=== PATIENT | male | born 1955 | race Caucasian/White ===

== ENCOUNTER → 2017-12-24 09:34 | Outpatient (CLI) | payer OTHER, SELFPAY ==
--- NOTE | 2017-12-24 09:45 | RAD_ITS ---
STUDY: X-RAY - PELVIS REASON FOR EXAM: Male, 62 years old. History of inflammatory polyarthropathy. TECHNIQUE: One view of the pelvis was obtained. COMPARISON: None. FINDINGS: There is a non-specific bowel gas pattern. Normal visualized soft tissue structures. Normal bilateral iliac wings, sacroiliac joints and visualized sacrum. Normal visualized bilateral superior and inferior pubic rami. Normal pubic symphysis. Normal ischial tuberosities. The patient is status post right total hip replacement. There is deformity of the right acetabulum with cephalic migration of the prosthesis and right hip. Normal visualized left femoral head. Normal left acetabulum. Normal left hip joint. RAD/Pelvis 1 or 2 Views IMPRESSION: Status post right total hip replacement with deformity of the right acetabulum. Electronically Signed: Silvio Galvan MD at 15:53 EST Tel [phone], Service support ,
[2017-12-24 12:45] LABS: Absolute Lymphocyte Count 1.65 X10^3/ul (0.83-4.51); Absolute Neutrophil Count 6.6 X10^3/uL (2.0-7.7); Basophil# 0.04 X10^3/uL; Basophil% 0.4 % (0-1); Eosinophil# 0.14 X10^3/uL; Eosinophils% 1.5 % (0-5); Hemoglobin 15.4 g/dl (13.0-16.5); Lymphocyte # 1.65 X10^3/ul (4.0); Mean Corp Hgb Conc 33.5 g/gl (32-36); Mean Corpuscular Hgb 28.9 pg (27.0-32.0); Mean Corpuscular Volume 86.5 fL (80-94); Mean Platelet Vol. 8.6 fl (6.2-12.0); Monocyte# 0.75 X10^3/uL; Monocyte% 8.2 % (0-10); Neutrophil # 6.59 X10^3/uL (2.7-7.7); Neutrophil % 71.8 % (47-70); Platelet Count 533 K/mm3 (150-450); RBC Distribution Width CV 14.3 % (11.6-14.6); RBC Distribution Width SD 45.2 fl (35.1-43.9); Red Blood Count 5.32 M/mm3 (4.6-6.2); White Blood Count 9.2 K/mm3 (4.4-11.0)
[2017-12-24 12:57] LABS: POSITIVE COUNT NO; POSITIVE DIFFERENTIAL NO; POSITIVE MORPHOLOGY NO
[2017-12-24 13:00] LABS: ALB/GLOB Ratio 1.2 RATIO (0.9-2.4); AST(SGOT) 24 U/L (15-37); Alanine Aminotransfer ALT/SGPT 40 U/L (16-61); Albumin, Serum 4.5 g/dL (3.2-5.0); Alkaline Phosphatase 76 U/L (45-117); Anion Gap 10 (5-15); BUN 14 mg/dL (7-18); BUN/Creat Ratio 17.4 RATIO (10-20); CRP < 2.90 mg/L (0.0-3.0); Calcium,Total 9.5 mg/dL (8.5-10.1); Chloride 102 mmol/L (98-107); EST Glomerular Filtration Rate 104 mL/min (>60); Est Glom Filt Rate - Afr Amer 125 mL/min (>60); Globulin 3.6 g/dL (2.2-4.2); Glucose 92 mg/dL (74-106); Potassium 3.9 mmol/L (3.5-5.1); Protein, Total 8.1 g/dL (6.4-8.2); Rheumatoid Factor < 10.0 IU/mL (<15); Sodium Level 137 mmol/L (136-145)
[2017-12-24 13:03] LABS: Erythrocyte Sedimentation Rate 7 mm/hr (0-20)
[2017-12-26 09:40] LABS: ANTINUCLEAR ANTIBODIES DIRECT Negative (Negative)
[2017-12-31 15:17] LABS: CCP IgG Antibodies 3 units (0-19); HEPATITIS B SURFACE AG Negative (Negative); HLA B27 Negative (.); Hep B Surface Antibodies Non Reactive (.); Hep C Antibodies <0.1 s/co ratio (0.0-0.9)
== END ==
PROVIDERS: Family Provider Internal Medicine; PCP Internal Medicine; Visit Provider Internal Medicine Rheumatology
DX: M06.4 Inflammatory polyarthropathy (principal); I10 Essential (primary) hypertension; F41.9 Anxiety disorder, unspecified
CPT/HCPCS: 36415; 72170; 80053; 81374; 85025; 85652; 86038; 86140; 86200; 86431; 86706; 86803; 87340

== ENCOUNTER → 2018-01-27 08:59 | Outpatient (CLI) | payer OTHER, SELFPAY ==
[2018-01-27 09:12] LABS: Absolute Lymphocyte Count 3.31 X10^3/ul (0.83-4.51); Absolute Neutrophil Count 8.2 X10^3/uL (2.0-7.7); Basophil# 0.04 X10^3/uL; Basophil% 0.3 % (0-1); Eosinophil# 0.26 X10^3/uL; Hematocrit 42.8 % (40-54); Hemoglobin 13.8 g/dl (13.0-16.5); Lymphocyte # 3.31 X10^3/ul (4.0); Lymphocyte % 25.6 % (19-41); Mean Corp Hgb Conc 32.2 g/gl (32-36); Mean Corpuscular Hgb 28.9 pg (27.0-32.0); Mean Corpuscular Volume 89.5 fL (80-94); Monocyte% 8.5 % (0-10); Neutrophil % 63.3 % (47-70); Platelet Count 474 K/mm3 (150-450); RBC Distribution Width CV 13.9 % (11.6-14.6); RBC Distribution Width SD 44.7 fl (35.1-43.9); Red Blood Count 4.78 M/mm3 (4.6-6.2)
[2018-01-27 09:15] LABS: POSITIVE COUNT NO; POSITIVE DIFFERENTIAL NO; POSITIVE MORPHOLOGY NO
[2018-01-27 09:24] LABS: Erythrocyte Sedimentation Rate 1 mm/hr (0-20)
[2018-01-27 09:43] LABS: CRP < 2.90 mg/L (0.0-3.0)
== END ==
PROVIDERS: Family Provider Internal Medicine; PCP Internal Medicine; Visit Provider Specialist
DX: T84.84XA Pain due to internal orthopedic prosthetic devices, implants and grafts, initial encounter (principal)
CPT/HCPCS: 36415; 85025; 85652; 86140

== ENCOUNTER → 2018-01-30 09:10 | Outpatient (CLI) | payer OTHER, SELFPAY ==
--- NOTE | 2018-01-30 09:12 | NM_ITS ---
CLINICAL: 62-year-old male with reported history of painful right hip arthroplasty operated > 20 years previous. LIMITED 99m Tc MDP THREE PHASE BONE SCINTIGRAPHY COMPARISON: Plain film radiograph report pelvis 12/24/2017 FINDINGS: Following the intravenous administration of 27.0 mCi of 99m Tc MDP, three-phase bone acquisitions of the pelvis reveal: 1. The flow and immediate static blood pool acquisitions demonstrate normal arterial and venous phase distribution of the radiopharmaceutical to the bilateral hemipelvis. 2. Delayed images depict increased radiopharmaceutical concentration identified in the anterior superior acetabular, intertrochanteric and distal femoral components of the symptomatic right hip prosthesis. 3. An increase in tracer concentration is identified in the fourth lumbar vertebra posteriorly on the left, right posterior sacrum, the left hip involving the femoral head-acetabular interface. 4. The remaining limited skeletal structures are scintigraphically unremarkable. NM/Bone Scan Three Phase IMPRESSION: 1. The increase in radiopharmaceutical concentration identified in the acetabular, intertrochanteric and femoral components of the painful right hip arthroplasty is consistent with a high likelihood of loosening in the setting of operative intervention > 2 years prior to the current presentation. If an infectious etiology is a diagnostic consideration, correlation with labeled leukocyte imaging is recommended. 2. Degenerative arthritis is otherwise defined in the fourth lumbar vertebra, sacrum and left hip articulation. Electronically Signed: Grant Escalante DO at 10:07 EDT Tel , Service support ,
== END ==
PROVIDERS: Family Provider Internal Medicine; PCP Internal Medicine; Visit Provider Specialist
DX: T84.84XA Pain due to internal orthopedic prosthetic devices, implants and grafts, initial encounter (principal)
CPT/HCPCS: 78315

== ENCOUNTER 2018-02-26 07:31 | Inpatient (IN) | payer OTHER, SELFPAY ==
[2018-02-17 10:07] VITALS: BP 133/91; PULSE 77; RESP 16; TEMP 37.2; O2SAT 96; BMI 21.9
--- NOTE | 2018-02-17 10:13 | EKG12_ITS ---
Test Reason : Blood Pressure : / mmHG Vent. Rate : 074 BPM Atrial Rate : 074 BPM P-R Int : 150 ms QRS Dur : 146 ms QT Int : 412 ms P-R-T Axes : 070 076 042 degrees QTc Int : 457 ms Normal sinus rhythm Right bundle branch block Abnormal ECG Confirmed by HENRIK BERNARD, JOURDAN ([id number]), sports editor ERUM RODRIGUEZ ([id number]) on 02/18/2018 3:38:26 PM Referred By: ORLANDO Confirmed By:JOURDAN CHESTER MD
[2018-02-17 11:14] LABS: Anion Gap 5 (5-15); BUN 13 mg/dL (7-18); BUN/Creat Ratio 15.6 RATIO (10-20); Calcium,Total 8.4 mg/dL (8.5-10.1); Chloride 102 mmol/L (98-107); Creatinine, Serum 0.83 mg/dL (0.70-1.30); EST Glomerular Filtration Rate 100 mL/min (>60); Est Glom Filt Rate - Afr Amer 121 mL/min (>60); Estimated Creatinine Clearance 86.59 ml/min; Glucose 115 mg/dL (74-106); Potassium 3.7 mmol/L (3.5-5.1); Sodium Level 135 mmol/L (136-145)
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
--- NOTE | 2018-02-21 15:52 | CASEMGMT ---
RN CM called and spoke with patient regarding discharge needs after upcoming surgery. Patient states that he has a walker, cane, toilet riser, and denies need for further DME. Patient states that he will need setup with outpatient therapy prior to discharge. RN GIOVANNY will follow up with patient after surgery and will assist with discharge needs.
[2018-02-26] VITALS (12 sets, daily range): BP systolic 133–158; BP diastolic 78–103; PULSE 74–98; RESP 14–18; TEMP 36.6–37.3; O2SAT 96–100; BMI 21.9
[2018-02-26] MEDS: oxyCODONE HCl Cr 10 MG Tablet PO (08:12)
[2018-02-26] MEDS: Celecoxib 200 MG Capsule 400 MG PO (08:12)
[2018-02-26] MEDS: Acetaminophen 500 MG Tablet 1000 MG PO ×2 (08:12→21:05)
[2018-02-26] MEDS: Lactated Ringers 1,000 ML 999 ML IV (08:30)
[2018-02-26] MEDS: Cefazolin 2 GM in 0.9% Normal Saline 100 ML IV (09:58)
--- NOTE | 2018-02-26 10:04 | RAD_ITS ---
STUDY: X-RAY - PELVIS AND RIGHT HIP REASON FOR EXAM: Male, 62 years old. Postop. TECHNIQUE: Radiological exam, hip, unilateral, with pelvis when performed; 2 or 3 views. COMPARISON: Pelvis, December 24, 2017 FINDINGS: There is a non-specific bowel gas pattern. Normal visualized soft tissue structures. Normal visualized pelvis. There is a right total hip arthroplasty. There is metallic plate along the lateral aspect of the greater trochanter with multiple transfixing metal wires. The greater trochanteric fracture seen on the previous study is not clearly identified. There is seen about the hip joint. In the musculature. RAD/Hip Min 2 Views (Portable) IMPRESSION: Interval revision of a right total hip arthroplasty. Electronically Signed: Tyrel Stubbs DO at 16:11 EDT Tel [phone], Service support ,
[2018-02-26 14:52] LABS: Hematocrit 35.1 % (40-54); Hemoglobin 11.8 g/dl (13.0-16.5); Mean Corp Hgb Conc 33.6 g/gl (32-36); Mean Corpuscular Hgb 29.8 pg (27.0-32.0); Mean Corpuscular Volume 88.6 fL (80-94); Platelet Count 290 K/mm3 (150-450); RBC Distribution Width CV 14.3 % (11.6-14.6); RBC Distribution Width SD 46.4 fl (35.1-43.9); Red Blood Count 3.96 M/mm3 (4.6-6.2); Scan Indicated on CBC? Y/N NO; White Blood Count 29.6 K/mm3 (4.4-11.0)
[2018-02-26 15:10] LABS: Anion Gap 6 (5-15); BUN 11 mg/dL (7-18); BUN/Creat Ratio 15.2 RATIO (10-20); Calcium,Total 7.7 mg/dL (8.5-10.1); Chloride 102 mmol/L (98-107); Creatinine, Serum 0.73 mg/dL (0.70-1.30); EST Glomerular Filtration Rate 117 mL/min (>60); Est Glom Filt Rate - Afr Amer 141 mL/min (>60); Estimated Creatinine Clearance 98.45 ml/min; Glucose 194 mg/dL (74-106); Potassium 4.1 mmol/L (3.5-5.1); Sodium Level 136 mmol/L (136-145)
--- NOTE | 2018-02-26 16:25 | RAD_ITS ---
STUDY: X-RAY - RIGHT FEMUR REASON FOR STUDY: Male, 62 years old. Postop TECHNIQUE: Radiological exam, femur, minimum 2 views COMPARISON: None. FINDINGS: Hip prosthesis in place without loosening. Intact cerclage wires. Postsurgical changes surrounding soft tissues. RAD/Femur Min 2 Views IMPRESSION: Hip prosthesis in place without loosening. No fracture. Electronically Signed: Eric Watkins DO at 18:37 EDT , Service support ,
--- NOTE | 2018-02-26 16:32 | PCM.OPRPT ---
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 Patient did have a old greater trochanteric fracture which was propagated during the procedure and fixed. Hip was stable with equal leg length at completion of procedure dental equipment repairer: Shay Merrill dental equipment repairer: Froilan Peña Type of Anesthesia:: General, Spinal Anesthesiologist: Freddy James Special Medications: 2 g Ancef, 1 g TXA at incision, 1 g TXA closure, 10 mg Decadron, joint cocktail (5 mg Duramorph, 30 mL of 0.5% Ropivicaine, 1000 units of epinephrine, 30 mg of Toradol), 2 additional grams of Ancef were given 3 hours after the incision, grams of vancomycin were placed in the wound prior to closure. Specimen's removed: 3 separate specimens were sent to microbiology Estimated Blood Loss (mL): 1500 mL Fluids Replaced: 2500 mL crystalloid, 750 mL Cell Saver Description of Procedure: 62-year-old male who presented to my office with total hip replacement done in 1987. He had extensive ostial lysis and polyethylene wear. Bone scan showed loosening of both components. X-rays show polyethylene wear and extensive ostial lysis with nondisplaced greater trochanteric fracture. After discussion of risk and benefits including but not limited to blood loss, DVTs, PEs, nervous damage, infection, general risk of anesthesia and prolonged surgery as well as use of allograft and possible osteotomies patient demonstrated understanding was able to sign informed consent. He does understand with his revision these complications, and a higher rate and recovery can be prolonged. Components used: 1. [place] congregation modular millimeter by 195 mm femoral stem conical, 23 mm +0 modular body 2. [place] BAILEY 70 mm acetabular component with multiple screws 3. Chhaya MDM liner alpha code G 4. Chhaya Biolox delta femoral head 28 mm, +4 mm. [place] MDM X3 polyethylene liner alpha code G 5. [place] peritrochanteric hip cable plate 100 mm and cables. Procedure: On the date of procedure the patient's R hip was marked in the preoperative area. Patient was then taken back to the operating room where anesthesia assumed control of the C-spine and airway and administered anesthetic. Patient was transferred to the operating table and placed in the lateral decubitus position with the affected hip up. The patient was secured in the bed with the lateral positioners and leg lengths were checked. The R lower extremity was then prepped out in a sterile fashion using chlorhexidine while the surgeon scrubbed. Upon reentering the room the [] lower extremity was draped in the standard orthopedic fashion and the incision was marked. A timeout was called and everyone agreed upon the side, the site, the procedure be performed, antibiotics given, and patient's identity. At this time incision was made through skin, using the old incision down through subcutaneous tissue, and fat down to fascia. The fascia was then incised and a Charley retractor was placed. The soft tissue was then cleared from the posterior external rotators were taken down off the posterior lateral edge of the greater trochanter until the prosthesis could be identified. Once the prosthesis could be identified synovectomy was performed in situ. Aggressive synovectomy was performed and synovium was sent for culture. Once a synovectomy was performed this allowed dislocation of the old hip. During dislocation the previous greater trochanteric fracture was propagated creating a trochanteric osteotomy. At this time it was noted that there was significant osteolytic debris in the greater trochanter leaving a shell of bone. This was debrided. This gave us access to the proximal portion of the femoral component. Her and osteotomes were used to bur around the proximal portion. Despite this we were unable to the femoral component. At this time the leg was positioned in the incision was extended so that we could perform an extended trochanteric osteotomy. Bur holes were made at the corners of the osteotomy and a saw was used to perform the osteotomy. Once the saw cut was completed brought osteotomes were placed across the osteotomy and the osteotomy was completed. Once this was done we again brought her on the distal portion of the implant until can be completely removed. Once the implant was completely removed we drilled to the pedestal distally and used flexible reamers to open the distal canal. Final reaming was to 15 mm. Attention was then turned to the acetabulum were accessed synovium and debris were debrided and the rim of the acetabulum could be identified. Polyethylene component was removed and the screws were removed. Once this was done we could see that there was a 56 mm cup. The 56 mm cup Tomes extractors were then loaded up and the acetabular implant was extracted after placing methylene back into the acetabular component. Once the acetabular component was extracted we could see large bone void superiorly. There was also bone voids and bone loss posteriorly. Should be noted that cultures were sent from the acetabular membrane in the femoral membrane after extraction of the implants. At this time the acetabular rim was reamed up to a 68 and we trialed a 70 mm acetabular component. This gave us of rim fit. Due to the size of the component previous elevation of the center rotation we elected use an BAILEY cup from [employer]. Once the acetabular bone was appropriately prepped and reamed 6 L of normal saline were irrigated throughout the wound under low-pressure lavage. While we are doing this on the back table allograft and DBX bone cement were mixed into a slurry for grafting the bone defects from ostial lysis that had been previously debrided. Once a 6 L of normal saline were complete wound was dried up and the graft was placed. We then used a reamer on reverse to impact the graft bone. Once this was done 70 mm BAILEY cup was loaded and impacted into place. Once we had a good solid fit screws were used to improve fixation. MDM liner was then opened and impacted into place. The position of the cup was checked with our [facility] acetabular version guide. It was found to be satisfactory. Attention was then directed to the femur. With our attention back on the femur the osteotomy was reduced and a prophylactic cable wire was placed distally and 2 K wires are placed on the osteotomy. Femur was sequentially reamed using the baton reamers to 16 mm stem x 195 mm stem. When this was done we used the ball-tipped guidewire to sound canal and no breaches were noted. At this time the final implant was opened and impacted into place. We then reamed to a 23 mm for the proximal body and trial. We trialed with a -4 mm trial neck did not have adequate leg length congregation. With a +4 trial neck we did obtain good leg lengths minimal shuck instability with flexion at 90? and 45? internal rotation. Once they are happy with these trial components hip was dislocated and trial components were removed and final components were opened and impacted into place. Femoral head was assembled on the [facility] record changer assembler and impacted into place. Hip was then reduced. The cable wires on the osteotomy were then tightened further and crimped. We then used #5 FiberWire to help reduce and secure the greater trochanteric fragment. We then used a cable late for final security. 2 cables were passed through the cable plate. Once this was done the hip remained stable. The periarticular injection was given and 2 g of vancomycin powder were placed in the wound. The wound was then copiously irrigated with normal saline once more, and hemostasis was obtained. Posterior structures could not be repaired. Closure was then done using #1 Vicryl to close the fascia. A 2-0 Vicryl interrupted sutures were used to close the subcutaneous skin. Skin aamir were used for final skin closure. A sterile dressing was placed. Patient was awakened by anesthesia and transferred to the [facility]. Patient was then transferred to the PACU for recovery. Postoperative plan: Patient will get 24 hours postop antibiotics. Patient will get in-house physical therapy and will be weight-bear as tolerated. Patient will follow up in office in 2 weeks for a wound check and x-rays. During the course of the procedure the physician assistant merchandiser played a vital role. His intimate knowledge of my steps in the procedure aided in safe and expedient completion of the procedure. The PA played a vital rolls in positioning particularly in obtaining the appropriate lateral decubitus position. The PA was also vital in the retraction of soft tissues during the exposure and especially the femoral work as this is a vital part of the procedure to prevent complications and fractures. The PA was also vital and protecting soft tissues during times of bony cuts and reaming. He also played a vital role in closure with my direct supervision. The PA was also important during reduction and dislocation of the joint and trials intraoperatively. Modifier 22: This case had multiple extenuating factors which added to the length of the case including extensive ostial lysis in both the femur and the acetabulum which required bone grafting in the acetabulum. He also had a previous greater trochanteric fracture which propagated during surgery and required repair. He also had to have an osteotomy in order to remove the femoral implant. Due to these multiple instances added to the complexity of the case the case did take 4.5 hours. Standard total hip replacement revision takes 2.5 hours. Grafts/Implants Used: Chhaya - Complications Propagation of previous greater trochanteric fracture - Admit VTE Documentation VTE Present on Admission: No VTE Mechan Device Prophylaxis: SCD's, Thigh High RADHA Hose VTE Pharm Prophylaxis ordered?: Yes
--- NOTE | 2018-02-26 16:53 | OP.PCM_ITS ---
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 Patient did have a old greater trochanteric fracture which was propagated during the procedure and fixed. Hip was stable with equal leg length at completion of procedure casting operator: Shay Merrill casting operator: Froilan Peña Type of Anesthesia:: General, Spinal Anesthesiologist: Freddy James Special Medications: 2 g Ancef, 1 g TXA at incision, 1 g TXA closure, 10 mg Decadron, joint cocktail (5 mg Duramorph, 30 mL of 0.5% Ropivicaine, 1000 units of epinephrine, 30 mg of Toradol), 2 additional grams of Ancef were given 3 hours after the incision, grams of vancomycin were placed in the wound prior to closure. Specimen's removed: 3 separate specimens were sent to microbiology Estimated Blood Loss (mL): 1500 mL Fluids Replaced: 2500 mL crystalloid, 750 mL Cell Saver Description of Procedure: 62-year-old male who presented to my office with total hip replacement done in 1987. He had extensive ostial lysis and polyethylene wear. Bone scan showed loosening of both components. X-rays show polyethylene wear and extensive ostial lysis with nondisplaced greater trochanteric fracture. After discussion of risk and benefits including but not limited to blood loss, DVTs, PEs, nervous damage, infection, general risk of anesthesia and prolonged surgery as well as use of allograft and possible osteotomies patient demonstrated understanding was able to sign informed consent. He does understand with his revision these complications, and a higher rate and recovery can be prolonged. Components used: 1. [place] pentecostal modular millimeter by 195 mm femoral stem conical, 23 mm +0 modular body 2. [place] BAILEY 70 mm acetabular component with multiple screws 3. Chhaya MDM liner alpha code G 4. Chhaya Biolox delta femoral head 28 mm, +4 mm. [place] MDM X3 polyethylene liner alpha code G 5. [place] peritrochanteric hip cable plate 100 mm and cables. Procedure: On the date of procedure the patient's R hip was marked in the preoperative area. Patient was then taken back to the operating room where anesthesia assumed control of the C-spine and airway and administered anesthetic. Patient was transferred to the operating table and placed in the lateral decubitus position with the affected hip up. The patient was secured in the bed with the lateral positioners and leg lengths were checked. The R lower extremity was then prepped out in a sterile fashion using chlorhexidine while the surgeon scrubbed. Upon reentering the room the [] lower extremity was draped in the standard orthopedic fashion and the incision was marked. A timeout was called and everyone agreed upon the side, the site, the procedure be performed, antibiotics given, and patient's identity. At this time incision was made through skin, using the old incision down through subcutaneous tissue, and fat down to fascia. The fascia was then incised and a Charley retractor was placed. The soft tissue was then cleared from the posterior external rotators were taken down off the posterior lateral edge of the greater trochanter until the prosthesis could be identified. Once the prosthesis could be identified synovectomy was performed in situ. Aggressive synovectomy was performed and synovium was sent for culture. Once a synovectomy was performed this allowed dislocation of the old hip. During dislocation the previous greater trochanteric fracture was propagated creating a trochanteric osteotomy. At this time it was noted that there was significant osteolytic debris in the greater trochanter leaving a shell of bone. This was debrided. This gave us access to the proximal portion of the femoral component. Her and osteotomes were used to bur around the proximal portion. Despite this we were unable to the femoral component. At this time the leg was positioned in the incision was extended so that we could perform an extended trochanteric osteotomy. Bur holes were made at the corners of the osteotomy and a saw was used to perform the osteotomy. Once the saw cut was completed brought osteotomes were placed across the osteotomy and the osteotomy was completed. Once this was done we again brought her on the distal portion of the implant until can be completely removed. Once the implant was completely removed we drilled to the pedestal distally and used flexible reamers to open the distal canal. Final reaming was to 15 mm. Attention was then turned to the acetabulum were accessed synovium and debris were debrided and the rim of the acetabulum could be identified. Polyethylene component was removed and the screws were removed. Once this was done we could see that there was a 56 mm cup. The 56 mm cup Tomes extractors were then loaded up and the acetabular implant was extracted after placing methylene back into the acetabular component. Once the acetabular component was extracted we could see large bone void superiorly. There was also bone voids and bone loss posteriorly. Should be noted that cultures were sent from the acetabular membrane in the femoral membrane after extraction of the implants. At this time the acetabular rim was reamed up to a 68 and we trialed a 70 mm acetabular component. This gave us of rim fit. Due to the size of the component previous elevation of the center rotation we elected use an BAILEY cup from [facility]. Once the acetabular bone was appropriately prepped and reamed 6 L of normal saline were irrigated throughout the wound under low-pressure lavage. While we are doing this on the back table allograft and DBX bone cement were mixed into a slurry for grafting the bone defects from ostial lysis that had been previously debrided. Once a 6 L of normal saline were complete wound was dried up and the graft was placed. We then used a reamer on reverse to impact the graft bone. Once this was done 70 mm BAILEY cup was loaded and impacted into place. Once we had a good solid fit screws were used to improve fixation. MDM liner was then opened and impacted into place. The position of the cup was checked with our [facility] the [facility] acetabular version guide. It was found to be satisfactory. Attention was then directed to the femur. With our attention back on the femur the osteotomy was reduced and a prophylactic cable wire was placed distally and 2 K wires are placed on the osteotomy. Femur was sequentially reamed using the baton reamers to 16 mm stem x 195 mm stem. When this was done we used the ball-tipped guidewire to sound canal and no breaches were noted. At this time the final implant was opened and impacted into place. We then reamed to a 23 mm for the proximal body and trial. We trialed with a -4 mm trial neck did not have adequate leg length pentecostal. With a +4 trial neck we did obtain good leg lengths minimal shuck instability with flexion at 90? and 45? internal rotation. Once they are happy with these trial components hip was dislocated and trial components were removed and final components were opened and impacted into place. Femoral head was assembled on the [facility] atomizer assembler and impacted into place. Hip was then reduced. The cable wires on the osteotomy were then tightened further and crimped. We then used #5 FiberWire to help reduce and secure the greater trochanteric fragment. We then used a cable late for final security. 2 cables were passed through the cable plate. Once this was done the hip remained stable. The periarticular injection was given and 2 g of vancomycin powder were placed in the wound. The wound was then copiously irrigated with normal saline once more, and hemostasis was obtained. Posterior structures could not be repaired. Closure was then done using #1 Vicryl to close the fascia. A 2-0 Vicryl interrupted sutures were used to close the subcutaneous skin. Skin aamir were used for final skin closure. A sterile dressing was placed. Patient was awakened by anesthesia and transferred to the [facility]. Patient was then transferred to the PACU for recovery. Postoperative plan: Patient will get 24 hours postop antibiotics. Patient will get in-house physical therapy and will be weight-bear as tolerated. Patient will follow up in office in 2 weeks for a wound check and x-rays. During the course of the procedure the physician field assistant played a vital role. His intimate knowledge of my steps in the procedure aided in safe and expedient completion of the procedure. The PA played a vital rolls in positioning particularly in obtaining the appropriate lateral decubitus position. The PA was also vital in the retraction of soft tissues during the exposure and especially the femoral work as this is a vital part of the procedure to prevent complications and fractures. The PA was also vital and protecting soft tissues during times of bony cuts and reaming. He also played a vital role in closure with my direct supervision. The PA was also important during reduction and dislocation of the joint and trials intraoperatively. Modifier 22: This case had multiple extenuating factors which added to the length of the case including extensive ostial lysis in both the femur and the acetabulum which required bone grafting in the acetabulum. He also had a previous greater trochanteric fracture which propagated during surgery and required repair. He also had to have an osteotomy in order to remove the femoral implant. Due to these multiple instances added to the complexity of the case the case did take 4.5 hours. Standard total hip replacement revision takes 2.5 hours. Grafts/Implants Used: Chhaya - Complications Propagation of previous greater trochanteric fracture - Admit VTE Documentation VTE Present on Admission: No VTE Mechan Device Prophylaxis: SCD's, Thigh High RADHA Hose VTE Pharm Prophylaxis ordered?: Yes
[2018-02-26] MEDS: Cefazolin 1 GM/50 ML BAG IV (18:13)
--- NOTE | 2018-02-26 18:40 | NURSING ---
1040 number was texted to notify the hospitalist that Dr. Farias consulted them for medical management.
[2018-02-26] MEDS: Morphine 4 MG/ML Syringe IV (19:12)
[2018-02-26] MEDS: Ketorolac 15 MG/ML Vial IV (19:12)
--- NOTE | 2018-02-26 19:23 | CON.PCM_ITS ---
Problem List (1) revision of right hip THR Status: Acute (2) Hypertension Status: Chronic (3) DJD (degenerative joint disease) Status: Chronic Reason for Consult Date of Consultation: 02/26/18 Reason for Consultation: Revison of right hip, THR History of Present Illness: The patient is a 62 year old M WITH H/o Right THR and revision in the past is admitted after revision of right total hip arthroplasty. He had initial hip replacement in 1989 and subsequently required PT and other medical management failed. Today, he had revision of right total hip arthroplasty by Dr. Farias. Denies active cardiac or pulmonary condition. C/o 06/06 right hip pain at operative site. [] Past Medical History Past Medical History (Chronic Problems): Chronic Problems Hypertension (Chronic) DJD (degenerative joint disease) (Chronic) Allergies No Known Allergies Allergy (Verified 02/17/18 09:46) Home Medications: Ambulatory Orders Medication Instructions Recorded Acetaminophen [Tylenol 8 Hour] 650 mg PO PRN PRN 02/17/18 Amlodipine Besylate [Norvasc] 5 mg PO DAILY 02/17/18 Folic Acid 2 mg PO DAILY@0800 02/17/18 Hydrochlorothiazide [Hctz] 25 mg PO DAILY 02/17/18 Methotrexate 10 mg PO Q7D 02/17/18 Smoking Status: Former smoker Tobacco Use: Cigarettes, Chew - *Family History Paternal History Items: No pertinent history Review of Systems Constitutional: Denies: Chills, Fever, Weight Change HEENT: Denies: Head Aches, Sinus Congestion, Sinus Drainage Cardiovascular: Denies: Chest Pain, Palpitations Respiratory: Denies: Cough, Shortness of breath at rest, Sputum production Gastrointestinal: Denies: Abdominal Pain, Nausea, Vomiting Genitourinary: Denies: Dysuria Musculoskeletal: Reports: Joint Pain, Joint stiffness, Joint Tenderness, Muscle pain Skin: Denies: Rash, Wounds Neurological: Denies: Numbness, Tingling, Focal weakness Psychiatric: Denies: Anxiety, Depression, Homicidal Ideations, Suicidal Ideations Hematologic/ Lymphatic: Denies: Easy Bruising, Easy Bleeding Patient Problems: Active and Suspected Problems revision of right hip THR (Acute) - Physical Exam General: Alert, Oriented x3, Cooperative HEENT: Atraumatic, PERRLA, EOMI, Normocephalic Neck: Supple, No JVD, Negative Carotid Bruits Lungs: Clear to auscultation, No rhonchi, No wheeze, No rales, Diminished Cardiovascular: Regular rate, Regular Rhythm, Normal S1, Normal S2, No murmurs Abdomen: Bowel Sounds Present, Soft, Non Tender, Non-Distended Extremities: No edema, Capillary Refill Less than 3 Seconds Skin: Ulcer/ Wound - operative surgical wound over right hip with dry dressing and covered with ice bag Musculoskeletal: Arthritic Changes, Tenderness Neurological: Cranial nerves II-XII grossly intact Psych/Mental Status: Normal Affect, Appropriate Vital Signs Temp Pulse Resp BP Pulse Ox 98.1 F 93 16 149/102 H 97 02/26/18 18:27 02/26/18 18:27 02/26/18 18:27 02/26/18 18:27 02/26/18 18:27 Oxygen Flow Rate (L/min) 4 Oxygen Delivery Method Room Air Weight: 144 lb 6.444 oz Body Mass Index (BMI) 21.9 Intake and Output for Last 24 Hours 02/24/18 02/25/18 02/26/18 23:59 23:59 23:59 Intake Total 2900 / 2900 Output Total 150 / 150 Balance 2750 / 2750 Microbiology Past 72 Hours 02/26/18 11:00 Gram Stain - Final Tissue - Hip 02/26/18 11:00 Gram Stain - Final Tissue - Hip 02/26/18 11:00 Gram Stain - Final Tissue - Hip Laboratory Tests Past 24 Hrs 02/26/18 02/26/18 02/26/18 14:25 14:25 14:25 WBC 29.6 H RBC 3.96 L Hgb 11.8 L Hct 35.1 L MCV 88.6 MCH 29.8 MCHC 33.6 RDW 14.3 RDW Differential 46.4 H Plt Count 290 MPV 8.0 Sodium 136 Potassium 4.1 Chloride 102 Carbon Dioxide 28.0 Anion Gap 6 BUN 11 Creatinine 0.73 Estim Creat Clear Calc 98.45 Est GFR (MDRD) Af Amer 141 Est GFR (MDRD) Non-Af 117 BUN/Creatinine Ratio 15.2 Glucose 194 H Calcium 7.7 L Blood Type O POSITIVE Antibody Screen NEGATIVE Assessment/Plan Active and Suspected Problems revision of right hip THR (Acute) The patient is a 62 year old M WITH H/o Right THR and revision in the past is admitted after revision of right total hip arthroplasty. He had initial hip replacement in 1989 and subsequently required PT and other medical management failed. Today, he had revision of right total hip arthroplasty by Dr. Farias. Denies active cardiac or pulmonary condition. C/o 8/10 right hip pain at operative site. 1. Right hip revision of total hip arthroplasty: Pain control. Incentive spirometry. Management as per Dr. Farias 2. HTN Cont home meds Novasc today and HCTZ from tomorrow. BP is 149/102; might need to titrate up tomorrow if BP 150/100 3 Chronic hip arthritis s/p THR and loosening of joint: On methotrexate. Indication unclear but started by Professor Of Biostatistics. DVT prophylaxis: Aspirin 325 mg bid. Code Visit Inpatient E&M: 43970 Init Hosp L3
[2018-02-26] MEDS: Methotrexate 2.5 MG Tablet 10 MG PO (19:55)
[2018-02-26] MEDS: Ondansetron 4 MG/2 ML Vial IV (20:23)
[2018-02-26] MEDS: Senna/Docusate Sodium 1 Tablet 2 TABLET PO (21:06)
[2018-02-26] MEDS: Aspirin 325 MG Tablet PO (21:06)
[2018-02-26] MEDS: Doxycycline 100 MG CAPSULE PO (21:07)
[2018-02-26] MEDS: oxyCODONE 5 MG Tablet PO (23:28)
[2018-02-27] MEDS: Morphine 4 MG/ML Syringe IV (00:45)
[2018-02-27] MEDS: Cefazolin 1 GM/50 ML BAG IV (02:16)
[2018-02-27 02:24] VITALS: BP 134/75; PULSE 95; RESP 18; TEMP 36.9; O2SAT 97
[2018-02-27] MEDS: Ketorolac 15 MG/ML Vial IV ×2 (02:27→20:40)
[2018-02-27 02:30] VITALS: PULSE 95
[2018-02-27] MEDS: 0.9% NaCl Peripheral Flush Adult/Peds IV ×2 (04:13→20:40)
[2018-02-27] MEDS: oxyCODONE 5 MG Tablet PO ×4 (04:14→22:05)
[2018-02-27] MEDS: Acetaminophen 500 MG Tablet 1000 MG PO ×3 (06:08→22:06)
[2018-02-27 06:13] LABS: Hematocrit 25.8 % (40-54); Hemoglobin 8.7 g/dl (13.0-16.5); Mean Corp Hgb Conc 33.7 g/gl (32-36); Mean Corpuscular Hgb 29.7 pg (27.0-32.0); Mean Corpuscular Volume 88.1 fL (80-94); Mean Platelet Vol. 8.1 fl (6.2-12.0); Platelet Count 220 K/mm3 (150-450); RBC Distribution Width CV 14.4 % (11.6-14.6); RBC Distribution Width SD 46.7 fl (35.1-43.9); Red Blood Count 2.93 M/mm3 (4.6-6.2)
[2018-02-27 06:17] LABS: Anion Gap 8 (5-15); BUN 11 mg/dL (7-18); BUN/Creat Ratio 15.4 RATIO (10-20); Calcium,Total 7.6 mg/dL (8.5-10.1); Chloride 101 mmol/L (98-107); Creatinine, Serum 0.71 mg/dL (0.70-1.30); EST Glomerular Filtration Rate 119 mL/min (>60); Est Glom Filt Rate - Afr Amer 144 mL/min (>60); Estimated Creatinine Clearance 101.22 ml/min; Glucose 114 mg/dL (74-106); Potassium 3.6 mmol/L (3.5-5.1); Sodium Level 135 mmol/L (136-145)
[2018-02-27 06:18] LABS: Scan Indicated on CBC? Y/N NO
[2018-02-27 08:30] VITALS: BP 152/80; PULSE 89; RESP 14; TEMP 37; O2SAT 96
[2018-02-27] MEDS: amLODIPine 5 MG Tablet PO (08:34)
[2018-02-27] MEDS: Famotidine 20 MG Tablet PO (08:34)
[2018-02-27] MEDS: hydroCHLOROthiazide 25 MG Tablet PO (08:34)
[2018-02-27] MEDS: Folic Acid 1 MG Tablet 2 MG PO (08:34)
[2018-02-27] MEDS: Aspirin 325 MG Tablet PO ×2 (08:34→17:43)
[2018-02-27] MEDS: Doxycycline 100 MG CAPSULE PO ×2 (08:35→22:06)
[2018-02-27] MEDS: Senna/Docusate Sodium 1 Tablet 2 TABLET PO ×2 (08:39→22:06)
--- NOTE | 2018-02-27 09:41 | PCM.PN.HOSP ---
Patient Problems: Active and Suspected Problems revision of right hip THR (Acute) Subjective: feeling good. notes that he is not able to dorsi-plantarflex his right foot since surgery. Vitals/I&O's: Vital Signs Temp Pulse Resp BP Pulse Ox 36.9 C 95 18 134/75 H 97 02/27/18 02:24 02/27/18 02:30 02/27/18 02:24 02/27/18 02:24 02/27/18 02:24 Oxygen Flow Rate (L/min) 4 Oxygen Delivery Method Room Air Weight: 65.5 kg Body Mass Index (BMI) 21.9 Intake and Output for Last 24 Hours 02/25/18 02/26/18 02/27/18 23:59 23:59 23:59 Intake Total 4732 / 4732 639 / 639 Output Total 375 / 375 900 / 900 Balance 4357 / 4357 -261 / -261 General: Alert HEENT: Atraumatic, Normocephalic Neck: No Nodes, Thyroid Normal Size and Texture Lungs: Clear to auscultation, Normal air movement, No rhonchi, No wheeze Cardiovascular: Regular rate, Regular Rhythm, Normal S1, Normal S2, No murmurs Abdomen: Bowel Sounds Present, Soft, Non Tender, Non-Distended, No Hepato-splenomegaly Neurological: - - diminished sensation of right foot (dorsum) Psych/Mental Status: Normal Affect, Appropriate Microbiology Past 72 Hours 02/26/18 11:00 Tissue - Hip Gram Stain - Final 02/26/18 11:00 Tissue - Hip Gram Stain - Final 02/26/18 11:00 Tissue - Hip Gram Stain - Final Laboratory Results 02/26/18 14:25: WBC 29.6 H, RBC 3.96 L, Hgb 11.8 L, Hct 35.1 L, MCV 88.6, MCH 29.8, MCHC 33.6, RDW 14.3, RDW Differential 46.4 H, Plt Count 290, MPV 8.0 02/26/18 14:25: Sodium 136, Potassium 4.1, Chloride 102, Carbon Dioxide 28.0, Anion Gap 6, BUN 11, Creatinine 0.73, Estim Creat Clear Calc 98.45, Est GFR (MDRD) Af Amer 141, Est GFR (MDRD) Non-Af 117, BUN/Creatinine Ratio 15.2, Glucose 194 H, Calcium 7.7 L 02/26/18 14:25: Blood Type O POSITIVE, Antibody Screen NEGATIVE 02/27/18 05:25: WBC 17.0 H, RBC 2.93 L, Hgb 8.7 L, Hct 25.8 L, MCV 88.1, MCH 29.7, MCHC 33.7, RDW 14.4, RDW Differential 46.7 H, Plt Count 220, MPV 8.1 02/27/18 05:25: Sodium 135 L, Potassium 3.6, Chloride 101, Carbon Dioxide 26.0, Anion Gap 8, BUN 11, Creatinine 0.71, Estim Creat Clear Calc 101.22, Est GFR (MDRD) Af Amer 144, Est GFR (MDRD) Non-Af 119, BUN/Creatinine Ratio 15.4, Glucose 114 H, Calcium 7.6 L Current Medications Acetaminophen (Tylenol) 1,000 mg PO Q8 [facility] Last Admin: 02/27/18 06:08 Dose: 1,000 mg Amlodipine Besylate (Norvasc) 5 mg PO DAILY [facility] Last Admin: 02/27/18 08:34 Dose: 5 mg [facility] Last Admin: 02/27/18 08:34 Dose: 325 mg Doxycycline Monohydrate (Doxycycline) 100 mg PO BID [facility] Stop: 03/05/18 22:01 Last Admin: 02/27/18 08:35 Dose: 100 mg Famotidine (Pepcid) 20 mg PO DAILY [facility] Last Admin: 02/27/18 08:34 Dose: 20 mg Folic Acid (Folic Acid) 2 mg PO DAILY@0800 [facility] Last Admin: 02/27/18 08:34 Dose: 2 mg Hydrochlorothiazide (Hctz) 25 mg PO DAILY [facility] Last Admin: 02/27/18 08:34 Dose: 25 mg Ketorolac Tromethamine (Toradol) 15 mg IV Q6H PRN PRN PRN Reason: MILD-MOD PAIN (1-5/10) Stop: 03/03/18 10:03 Last Admin: 02/27/18 02:27 Dose: 15 mg Methotrexate (Methotrexate) 10 mg PO Q7D@1000 [facility] Last Admin: 02/26/18 19:55 Dose: 10 mg Morphine Sulfate () 2 - 4 mg IV Q2H PRN PRN PRN Reason: SEVERE PAIN (6-10/10) Last Admin: 02/27/18 00:45 Dose: 4 mg Nutritional Formula (Lactose Free) (Ensure Clear) 120 ml PO TIDCM [facility] Last Admin: 02/27/18 08:38 Dose: 120 ml Ondansetron HCl (Zofran) 4 mg IV Q8H PRN PRN PRN Reason: NAUSEA Last Admin: 02/26/18 20:23 Dose: 4 mg Oxycodone HCl (Oxyir) 5 - 10 mg PO Q4H PRN PRN PRN Reason: MOD-SEVERE PAIN (4-10/10) Last Admin: 02/27/18 08:34 Dose: 10 mg Promethazine HCl (Phenergan) 12.5 mg IM Q6H PRN PRN; Protocol PRN Reason: NAUSEA/VOMITING Senna/Docusate Sodium (Senokot-S, Rachell-Colace) 2 tablet PO BID [facility] Last Admin: 02/27/18 08:39 Dose: 2 tablet Sodium Chloride () 5 - 30 ml IV UD PRN PRN Reason: SALINE FLUSH Last Admin: 02/27/18 04:13 Dose: 10 ml Medical Necessity - Tobacco Use Smoking Status: Former smoker Tobacco Use: Cigarettes, Chew Assessment/Plan Active and Suspected Problems revision of right hip THR (Acute) 1. Leukocytosis suspect reactive and decadron no s/s of infectious process monitor 2. paresthesias right foot suspect d/t nerve block monitor if no improvement in next 24h, consider further evaluation 3. s/p Right hip replacement revised on original from 1989 mgmt per ortho 4. DVT proph: as assessed by ortho, ASA 325 BID. Code Visit Inpatient E&M: 44219 Subs Hosp L2
--- NOTE | 2018-02-27 09:46 | PN_ITS ---
Patient Problems: Active and Suspected Problems revision of right hip THR (Acute) Subjective: feeling good. notes that he is not able to dorsi-plantarflex his right foot since surgery. Vitals/I&O's: Vital Signs Temp Pulse Resp BP Pulse Ox 36.9 C 95 18 134/75 H 97 02/27/18 02:24 02/27/18 02:30 02/27/18 02:24 02/27/18 02:24 02/27/18 02:24 Oxygen Flow Rate (L/min) 4 Oxygen Delivery Method Room Air Weight: 65.5 kg Body Mass Index (BMI) 21.9 Intake and Output for Last 24 Hours 02/25/18 02/26/18 02/27/18 23:59 23:59 23:59 Intake Total 4732 / 4732 639 / 639 Output Total 375 / 375 900 / 900 Balance 4357 / 4357 -261 / -261 General: Alert HEENT: Atraumatic, Normocephalic Neck: No Nodes, Thyroid Normal Size and Texture Lungs: Clear to auscultation, Normal air movement, No rhonchi, No wheeze Cardiovascular: Regular rate, Regular Rhythm, Normal S1, Normal S2, No murmurs Abdomen: Bowel Sounds Present, Soft, Non Tender, Non-Distended, No Hepato- splenomegaly Neurological: - - diminished sensation of right foot (dorsum) Psych/Mental Status: Normal Affect, Appropriate Microbiology Past 72 Hours 02/26/18 11:00 Tissue - Hip Gram Stain - Final 02/26/18 11:00 Tissue - Hip Gram Stain - Final 02/26/18 11:00 Tissue - Hip Gram Stain - Final Laboratory Results 02/26/18 14:25: WBC 29.6 H, RBC 3.96 L, Hgb 11.8 L, Hct 35.1 L, MCV 88.6, MCH 29.8, MCHC 33.6, RDW 14.3, RDW Differential 46.4 H, Plt Count 290, MPV 8.0 02/26/18 14:25: Sodium 136, Potassium 4.1, Chloride 102, Carbon Dioxide 28.0, Anion Gap 6, BUN 11, Creatinine 0.73, Estim Creat Clear Calc 98.45, Est GFR ( MDRD) Af Amer 141, Est GFR (MDRD) Non-Af 117, BUN/Creatinine Ratio 15.2, Glucose 194 H, Calcium 7.7 L 02/26/18 14:25: Blood Type O POSITIVE, Antibody Screen NEGATIVE 02/27/18 05:25: WBC 17.0 H, RBC 2.93 L, Hgb 8.7 L, Hct 25.8 L, MCV 88.1, MCH 29.7, MCHC 33.7, RDW 14.4, RDW Differential 46.7 H, Plt Count 220, MPV 8.1 02/27/18 05:25: Sodium 135 L, Potassium 3.6, Chloride 101, Carbon Dioxide 26.0, Anion Gap 8, BUN 11, Creatinine 0.71, Estim Creat Clear Calc 101.22, Est GFR ( MDRD) Af Amer 144, Est GFR (MDRD) Non-Af 119, BUN/Creatinine Ratio 15.4, Glucose 114 H, Calcium 7.6 L Current Medications Acetaminophen (Tylenol) 1,000 mg PO Q8 [facility] Last Admin: 02/27/18 06:08 Dose: 1,000 mg Amlodipine Besylate (Norvasc) 5 mg PO DAILY [facility] Last Admin: 02/27/18 08:34 Dose: 5 [facility] Admin: 02/27/18 08:34 Dose: 325 mg Doxycycline Monohydrate (Doxycycline) 100 mg PO BID [facility] Stop: 03/05/18 22:01 Last Admin: 02/27/18 08:35 Dose: 100 mg Famotidine (Pepcid) 20 mg PO DAILY [facility] Last Admin: 02/27/18 08:34 Dose: 20 mg Folic Acid (Folic Acid) 2 mg PO DAILY@0800 [facility] Last Admin: 02/27/18 08:34 Dose: 2 mg Hydrochlorothiazide (Hctz) 25 mg PO DAILY [facility] Last Admin: 02/27/18 08:34 Dose: 25 mg Ketorolac Tromethamine (Toradol) 15 mg IV Q6H PRN PRN PRN Reason: MILD-MOD PAIN (1-5/10) Stop: 03/03/18 10:03 Last Admin: 02/27/18 02:27 Dose: 15 mg Methotrexate (Methotrexate) 10 mg PO Q7D@1000 [facility] Last Admin: 02/26/18 19:55 Dose: 10 mg Morphine Sulfate () 2 - 4 mg IV Q2H PRN PRN PRN Reason: SEVERE PAIN (6-10/10) Last Admin: 02/27/18 00:45 Dose: 4 mg Nutritional Formula (Lactose Free) (Ensure Clear) 120 ml PO TIDCM [facility] Last Admin: 02/27/18 08:38 Dose: 120 ml Ondansetron HCl (Zofran) 4 mg IV Q8H PRN PRN PRN Reason: NAUSEA Last Admin: 02/26/18 20:23 Dose: 4 mg Oxycodone HCl (Oxyir) 5 - 10 mg PO Q4H PRN PRN PRN Reason: MOD-SEVERE PAIN (4-10/10) Last Admin: 02/27/18 08:34 Dose: 10 mg Promethazine HCl (Phenergan) 12.5 mg IM Q6H PRN PRN; Protocol PRN Reason: NAUSEA/VOMITING Senna/Docusate Sodium (Senokot-S, Rachell-Colace) 2 tablet PO BID [facility] Last Admin: 02/27/18 08:39 Dose: 2 tablet Sodium Chloride () 5 - 30 ml IV UD PRN PRN Reason: SALINE FLUSH Last Admin: 02/27/18 04:13 Dose: 10 ml Medical Necessity - Tobacco Use Smoking Status: Former smoker Tobacco Use: Cigarettes, Chew Assessment/Plan Active and Suspected Problems revision of right hip THR (Acute) 1. Leukocytosis * suspect reactive and decadron * no s/s of infectious process * monitor 2. paresthesias right foot * suspect d/t nerve block * monitor * if no improvement in next 24h, consider further evaluation 3. s/p Right hip replacement * revised on original from 1989 * mgmt per ortho 4. DVT proph: as assessed by ortho, ASA 325 BID. Code Visit Inpatient E&M: 92123 Subs Hosp L2
--- NOTE | 2018-02-27 13:43 | PN.ORTHO_ITS ---
Patient Problems: Active and Suspected Problems revision of right hip THR (Acute) Subjective: The patient was sitting in bedside chair upon examination. Patient denies any chest pain, shortness of breath, dizziness, lightheadedness, nausea or vomiting , or calf pain. Pain is controlled on medications. No adverse overnight events. Patient's chief complaint is he is not able to dorsiflex his right foot and right great toe. Patient does complain of numbness and tingling into the dorsal aspect of the toes/foot. Overall the right hip feels well but does complain of stiffness if he sits for extended periods. Objective: Vital signs stable and afebrile. Patient is able to plantarflex and perform straight leg raise on the right. Patient is unable to dorsiflex the right ankle and unable to perform great toe extension. Sensation is intact to light touch to saphenous, sural, superficial and deep peroneal, and tibial distribution. Dressing is clean dry and intact. New dressing was placed by nursing due to previous dressing getting rolled up. Negative Homans bilaterally, negative signs and symptoms of DVT. - Physical Exam General: Alert, Oriented x3, Cooperative, No apparent distress Vital Signs Temp Pulse Resp BP Pulse Ox 98.6 F 89 14 152/80 H 96 02/27/18 08:30 02/27/18 08:30 02/27/18 08:30 02/27/18 08:30 02/27/18 08:30 Oxygen Flow Rate (L/min) 4 Oxygen Delivery Method Room Air Weight: 65.5 kg Body Mass Index (BMI) 21.9 Intake and Output for Last 24 Hours 02/25/18 02/26/18 02/27/18 23:59 23:59 23:59 Intake Total 4732 / 4732 1039 / 1039 Output Total 375 / 375 1750 / 1750 Balance 4357 / 4357 -711 / -711 Microbiology Past 72 Hours 02/26/18 11:00 Gram Stain - Final Tissue - Hip Wound Culture - Preliminary No growth-Final to follow 02/26/18 11:00 Gram Stain - Final Tissue - Hip Wound Culture - Preliminary No growth-Final to follow 02/26/18 11:00 Gram Stain - Final Tissue - Hip Wound Culture - Preliminary No growth-Final to follow Laboratory Tests Past 24 Hrs 05/02/18 05/02/18 05/02/18 14:25 14:25 14:25 WBC 29.6 H RBC 3.96 L Hgb 11.8 L Hct 35.1 L MCV 88.6 MCH 29.8 MCHC 33.6 RDW 14.3 RDW Differential 46.4 H Plt Count 290 MPV 8.0 Sodium 136 Potassium 4.1 Chloride 102 Carbon Dioxide 28.0 Anion Gap 6 BUN 11 Creatinine 0.73 Estim Creat Clear Calc 98.45 Est GFR (MDRD) Af Amer 141 Est GFR (MDRD) Non-Af 117 BUN/Creatinine Ratio 15.2 Glucose 194 H Calcium 7.7 L Blood Type O POSITIVE Antibody Screen NEGATIVE 02/27/18 02/27/18 05:25 05:25 WBC 17.0 H RBC 2.93 L Hgb 8.7 L Hct 25.8 L MCV 88.1 MCH 29.7 MCHC 33.7 RDW 14.4 RDW Differential 46.7 H Plt Count 220 MPV 8.1 Sodium 135 L Potassium 3.6 Chloride 101 Carbon Dioxide 26.0 Anion Gap 8 BUN 11 Creatinine 0.71 Estim Creat Clear Calc 101.22 Est GFR (MDRD) Af Amer 144 Est GFR (MDRD) Non-Af 119 BUN/Creatinine Ratio 15.4 Glucose 114 H Calcium 7.6 L Blood Type Antibody Screen Medical Necessity - Tobacco Use Smoking Status: Former smoker Tobacco Use: Cigarettes, Chew Assessment/Plan Active and Suspected Problems revision of right hip THR (Acute) 1. 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 Continue Pain Medications: Tylenol and OxyIR 3. DVT Prophylaxis: Aspirin 325 mg twice daily 4. PT/OT: Patient will remain toe-touch weightbearing for 6 weeks on the right lower extremity. Follow posterior hip dislocation precautions. Abduction pillow was initially used. However patient is unable to do this due to phobia. He can sleep without the abduction pillow but should have pillows between his leg and not cross his legs, must lay on his back. Work on range of motion and strengthening of right lower leg and ankle. 5. H & H: 8.7/25.8, asymptomatic. Postoperative anemia secondary to acute blood loss from surgery. Cell Saver was used during the procedure. Patient's preoperative hemoglobin was 13.8. Will continue to monitor. 6. Leukocytosis: Currently 17.0, afebrile. Patient did receive Decadron intraoperatively 7. Peroneal nerve palsy: Patient currently has sensation intact but lacks motor function of dorsiflexion and great toe extension. Will have physical therapy continue to work on range of motion and strengthening. At this time will hold off of any foot drop brace until follow-up at 2 weeks. Encourage range of motion to prevent stiffness. 8. Encouraged Incentive Spirometry 9. Continue antibiotics while following cultures: Currently with no growth. Patient currently using doxycycline 100 mg twice daily. 10. Disposition: Plan will be for possible discharge home tomorrow if labs are stable, patient tolerates physical therapy, and pain is controlled.
[2018-02-27 14:10] VITALS: BP 162/80; PULSE 101; RESP 16; TEMP 37; O2SAT 99
[2018-02-27 21:00] VITALS: BP 135/79; PULSE 103; RESP 18; TEMP 36.8; O2SAT 98
[2018-02-28 02:10] VITALS: BP 136/79; PULSE 84; RESP 16; TEMP 37; O2SAT 99
[2018-02-28 06:21] LABS: Hematocrit 24.3 % (40-54); Hemoglobin 8.2 g/dl (13.0-16.5); Mean Corp Hgb Conc 33.7 g/gl (32-36); Mean Corpuscular Hgb 29.8 pg (27.0-32.0); Mean Corpuscular Volume 88.4 fL (80-94); Mean Platelet Vol. 7.9 fl (6.2-12.0); Platelet Count 230 K/mm3 (150-450); RBC Distribution Width CV 14.7 % (11.6-14.6); RBC Distribution Width SD 47.6 fl (35.1-43.9); Red Blood Count 2.75 M/mm3 (4.6-6.2)
[2018-02-28 06:33] LABS: Scan Indicated on CBC? Y/N NO
[2018-02-28] MEDS: Acetaminophen 500 MG Tablet 1000 MG PO ×2 (06:38→13:58)
--- NOTE | 2018-02-28 06:56 | PN.ORTHO_ITS ---
Patient Problems: Active and Suspected Problems revision of right hip THR (Acute) Subjective: The patient was resting in bed upon examination. Patient denies any chest pain , shortness of breath, dizziness, lightheadedness, nausea or vomiting, or calf pain. Pain is controlled on medications. No adverse overnight events. Overall patient is doing well. Pain is been controlled. He still is unable to dorsiflex his right foot/ankle. Patient does wish to try to go home today. Patient rested better overnight without using abductor pillow. Objective: Vital signs stable and afebrile. Patient is able to plantarflex and dorsiflex actively. Sensation is intact to light touch to saphenous, sural, superficial and deep peroneal, and tibial distribution. Dressing is clean dry and intact. Negative Homans bilaterally, negative signs and symptoms of DVT. - Physical Exam General: Alert, Oriented x3, Cooperative, No apparent distress Vital Signs Temp Pulse Resp BP Pulse Ox 98.6 F 84 16 136/79 H 99 02/28/18 02:10 02/28/18 02:10 02/28/18 02:10 02/28/18 02:10 02/28/18 02:10 Oxygen Flow Rate (L/min) 4 Oxygen Delivery Method Room Air Weight: 65.5 kg Body Mass Index (BMI) 21.9 Intake and Output for Last 24 Hours 02/26/18 02/27/18 02/28/18 23:59 23:59 23:59 Intake Total 4732 / 4732 1839 / 1839 Output Total 375 / 375 4575 / 4575 Balance 4357 / 4357 -2736 / -2736 Microbiology Past 72 Hours 02/26/18 11:00 Gram Stain - Final Tissue - Hip Wound Culture - Preliminary No growth-Final to follow 02/26/18 11:00 Gram Stain - Final Tissue - Hip Wound Culture - Preliminary No growth-Final to follow 02/26/18 11:00 Gram Stain - Final Tissue - Hip Wound Culture - Preliminary No growth-Final to follow Laboratory Tests Past 24 Hrs 02/28/18 05:56 WBC 12.0 H RBC 2.75 L Hgb 8.2 L Hct 24.3 L MCV 88.4 MCH 29.8 MCHC 33.7 RDW 14.7 H RDW Differential 47.6 H Plt Count 230 MPV 7.9 Medical Necessity - Tobacco Use Smoking Status: Former smoker Tobacco Use: Cigarettes, Chew Assessment/Plan Active and Suspected Problems revision of right hip THR (Acute) 1. 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 Continue Pain Medications: Tylenol and OxyIR 3. DVT Prophylaxis: Aspirin 325 mg twice daily 4. PT/OT: Patient will remain toe-touch weightbearing for 6 weeks on the right lower extremity. Follow posterior hip dislocation precautions. Abduction pillow was initially used. However patient is unable to do this due to phobia. He can sleep without the abduction pillow but should have pillows between his leg and not cross his legs, must lay on his back. Work on range of motion and strengthening of right lower leg and ankle. 5. H & H: 8.2/24.3, asymptomatic. Postoperative anemia secondary to acute blood loss from surgery. Cell Saver was used during the procedure. Patient's preoperative hemoglobin was 13.8. Will continue to monitor. 6. Leukocytosis: Trending down currently 12 .0, afebrile. Patient did receive Decadron intraoperatively 7. Peroneal nerve palsy: Patient currently has sensation intact but lacks motor function of dorsiflexion and great toe extension. Will have physical therapy continue to work on range of motion and strengthening. At this time will hold off of any foot drop brace until follow-up at 2 weeks. Encourage range of motion to prevent stiffness. 8. Encouraged Incentive Spirometry 9. Continue antibiotics while following cultures: Currently with no growth. Patient currently using doxycycline 100 mg twice daily. 10. Disposition: Plan is for discharge home today. Prescriptions will be E scribed to [facility]. Patient will follow-up per postop instructions. Patient was instructed to work on passive range of motion of the right ankle 3-4 times daily to prevent stiffness. He continues to have difficulty secondary to the peroneal nerve palsy. If no better by 2 week follow -up patient will be placed in foot drop splint.
--- NOTE | 2018-02-28 07:04 | DCINST_ITS ---
Discharge Diet: No Restrictions Discharge Activity: May Not Drive - while taking narcotic pain medications. May shower in (days): 1 - Turned dressing away from water Ice area for (Minutes): 20 - Every 1-2 hours while awake Weight Bearing Status: Toe touch weight bearing - For 6 weeks with walker Additional Activity Instructions:: Wear elastic stockings for 2 weeks. DO NOT use alcohol with narcotic pain medication. DO NOT make important decisions while taking narcotic medication. If you have problems with taking your medication (rash, itching, nausea, etc.) call the office at once. Call your doctor if your incision/area has: Increased Pain/ Swelling, Increased Redness, Foul Smelling Discharge Call your doctor if you observe: Fever of 101 or Higher Remove Dressing in (days):: 3 - Okay to remove on March 03, 2018 Additional Instructions: Follow [facility] postop instructions Must use pillow in between legs while sleeping, must lay on back. Remain toe- touch weightbearing right lower extremity for 6 weeks. Peroneal nerve palsy: Must work on range of motion of right ankle/foot 3-4 times daily to prevent stiffness. Allergies/Adverse Reactions: Allergies No Known Allergies Allergy (Verified 02/17/18 09:46) Medications to take at Discharge Amlodipine Besylate [Norvasc] 5 mg PO DAILY 02/17/18 Folic Acid 2 mg PO DAILY@0800 02/17/18 Hydrochlorothiazide [Hctz] 25 mg PO DAILY 02/17/18 Methotrexate 10 mg PO Q7D 02/17/18 Acetaminophen [Tylenol] 1,000 mg PO Q8 #90 tab 02/28/18 Aspirin 325 mg PO BIDCM #30 tab 02/28/18 Doxycycline 100 mg PO BID #14 cap 02/28/18 Famotidine [Pepcid] 20 mg PO DAILY #30 tab 02/28/18 Oxycodone [Oxyir] 5 - 10 mg PO Q4H PRN PRN 7 Days #84 tablet 02/28/18 Senna/Docusate Sodium [Senokot-S] 2 tab PO BID #20 tab 02/28/18 The following prescriptions were given: Oxycodone [Oxyir] 5 - 10 mg PO Q4H PRN PRN 7 Days #84 tablet PRN Reason: Mod-Severe Pain (4-08/06) Acetaminophen [Tylenol] 1,000 mg PO Q8 #90 tab Famotidine [Pepcid] 20 mg PO DAILY #30 tab Aspirin 325 mg PO BIDCM #30 tab Doxycycline 100 mg PO BID #14 cap Senna/Docusate Sodium [Senokot-S] 2 tab PO BID #20 tab Primary Care Physician: Rojas King MD [Primary Care Provider] - Please Follow Up With: [facility] When: 03/03/18 @ 8:30 am Please Follow Up With: Shay Merrill PA-C When: 03/12/18 @ 8:30 am
[2018-02-28] MEDS: oxyCODONE 5 MG Tablet PO ×2 (07:38→13:58)
[2018-02-28 08:05] VITALS: BP 149/82; PULSE 104; PULSE 107; RESP 18; TEMP 36.8; O2SAT 99
[2018-02-28] MEDS: Aspirin 325 MG Tablet PO (08:07)
[2018-02-28] MEDS: Folic Acid 1 MG Tablet 2 MG PO (08:07)
[2018-02-28] MEDS: Doxycycline 100 MG CAPSULE PO (10:47)
[2018-02-28] MEDS: Famotidine 20 MG Tablet PO (10:47)
[2018-02-28] MEDS: hydroCHLOROthiazide 25 MG Tablet PO (10:47)
[2018-02-28] MEDS: amLODIPine 5 MG Tablet PO (10:47)
[2018-02-28] MEDS: Senna/Docusate Sodium 1 Tablet 2 TABLET PO (10:47)
[2018-02-28 14:00] VITALS: BP 134/74; PULSE 112; RESP 18; TEMP 37.3; O2SAT 99
== END 2018-02-28 14:20 | disposition home or self-care (01) | DRG 466 ==
LOC: ACINP 07:32 → MS3 08:33
PROVIDERS: Anesthesiology; Admitting Provider Specialist; Family Provider Internal Medicine; PCP Internal Medicine
PROC: 0SR9039 Replacement of Right Hip Joint with Ceramic Synthetic Substitute, Cemented, Open Approach (ICD-10-PCS; CPT 27134; principal; 2018-02-26 09:20)
DX: T84.84XA Pain due to internal orthopedic prosthetic devices, implants and grafts, initial encounter (principal); S72.114A Nondisplaced fracture of greater trochanter of right femur, initial encounter for closed fracture; D62 Acute posthemorrhagic anemia; T84.030A Mechanical loosening of internal right hip prosthetic joint, initial encounter; Y79.2 Prosthetic and other implants, materials and accessory orthopedic devices associated with adverse incidents; Y92.9 Unspecified place or not applicable; Z96.641 Presence of right artificial hip joint; G57.30 Lesion of lateral popliteal nerve, unspecified lower limb; I10 Essential (primary) hypertension; M16.10 Unilateral primary osteoarthritis, unspecified hip; F41.9 Anxiety disorder, unspecified; X58.XXXA Exposure to other specified factors, initial encounter; Y93.9 Activity, unspecified; Y99.9 Unspecified external cause status; Z79.82 Long term (current) use of aspirin; Z79.899 Other long term (current) drug therapy; Z87.891 Personal history of nicotine dependence
CPT/HCPCS: 36415; 73502; 73552; 80048; 85027; 86850; 86900; 87015; 87070; 87075; 87081; 87102; 87116; 87205; 87206; 93005; 97110; 97162; 97166; 97530; 97802; 99251; C1776; J7120; A4216; G0463; J2405; J3490; J8610

== ENCOUNTER → 2018-03-12 14:44 | Outpatient (CLI) | payer OTHER, SELFPAY ==
--- NOTE | 2018-03-12 14:47 | VDLE_ITS ---
Reason For Study: LEG PAIN RIGHT GSV is normal. CFV is compressible, spontaneous, phasic, competent and demonstrates normal augmentation. FV is compressible, spontaneous, phasic, competent and demonstrates normal augmentation. POP V is compressible, spontaneous, phasic, competent and demonstrates normal augmentation. T/P Trunk is compressible. PTV is compressible. RT PerV is compressible. Procedure Exam performed in department. A preliminary report was called and/or faxed to Dr Merrill. Interpretation Summary Deep veins of the right lower extremity are patent and compressible segmentally. There is no evidence of right lower extremity deep vein thrombosis. Valvular competence appears intact within the proximal deep venous system on the right . The right greater saphenous vein appears patent and compressible segmentally. Ordering Physician: Shay Merrill Referring Physician: LAUREL JONES Performed By: Jerilyn Wadsworth, WILSON, RVT
== END ==
PROVIDERS: Family Provider Internal Medicine; PCP Internal Medicine; Visit Provider Physician Assistant Surgical
DX: M79.661 Pain in right lower leg (principal)
CPT/HCPCS: 93971

== ENCOUNTER → 2018-04-08 09:42 | Outpatient (CLI) | payer OTHER, SELFPAY ==
[2018-04-08 12:31] LABS: Absolute Lymphocyte Count 1.49 X10^3/ul (0.83-4.51); Absolute Neutrophil Count 7.4 X10^3/uL (2.0-7.7); Basophil# 0.03 X10^3/uL; Basophil% 0.3 % (0-1); Eosinophil# 0.08 X10^3/uL; Eosinophils% 0.8 % (0-5); Hematocrit 34.3 % (40-54); Hemoglobin 11.2 g/dl (13.0-16.5); Lymphocyte # 1.49 X10^3/ul (4.0); Lymphocyte % 15.1 % (19-41); Mean Corp Hgb Conc 32.7 g/gl (32-36); Mean Corpuscular Hgb 27.3 pg (27.0-32.0); Mean Corpuscular Volume 83.7 fL (80-94); Mean Platelet Vol. 7.6 fl (6.2-12.0); Monocyte# 0.85 X10^3/uL; Monocyte% 8.6 % (0-10); Neutrophil # 7.42 X10^3/uL (2.7-7.7); RBC Distribution Width CV 16.3 % (11.6-14.6); RBC Distribution Width SD 48.7 fl (35.1-43.9); White Blood Count 9.9 K/mm3 (4.4-11.0)
[2018-04-08 12:40] LABS: ALB/GLOB Ratio 1.1 RATIO (0.9-2.4); AST(SGOT) 25 U/L (15-37); Alanine Aminotransfer ALT/SGPT 32 U/L (16-61); Alkaline Phosphatase 80 U/L (45-117); Anion Gap 10 (5-15); BUN 10 mg/dL (7-18); BUN/Creat Ratio 17.3 RATIO (10-20); Calcium,Total 9.2 mg/dL (8.5-10.1); Chloride 94 mmol/L (98-107); Creatinine, Serum 0.58 mg/dL (0.70-1.30); EST Glomerular Filtration Rate 151 mL/min (>60); Est Glom Filt Rate - Afr Amer 183 mL/min (>60); Globulin 3.5 g/dL (2.2-4.2); Glucose 109 mg/dL (74-106); Potassium 3.7 mmol/L (3.5-5.1); Protein, Total 7.5 g/dL (6.4-8.2); Sodium Level 133 mmol/L (136-145)
[2018-04-08 13:04] LABS: POSITIVE COUNT YES; POSITIVE DIFFERENTIAL NO; POSITIVE MORPHOLOGY NO
[2018-04-08 13:05] LABS: Differential Indicated SCAN CRITERIA MET
[2018-04-08 13:12] LABS: Platelet Estimate MKD INC (ADEQ)
[2018-04-08 14:00] LABS: Platelet Count 758 K/mm3 (150-450)
[2018-04-09 13:53] LABS: Pathologist Review Reviewed
== END ==
PROVIDERS: Family Provider Internal Medicine; PCP Internal Medicine; Visit Provider Internal Medicine Rheumatology
DX: M06.4 Inflammatory polyarthropathy (principal); I10 Essential (primary) hypertension; F41.9 Anxiety disorder, unspecified
CPT/HCPCS: 36415; 80053; 85025

== ENCOUNTER → 2018-05-21 12:11 | Outpatient (CLI) | payer OTHER, SELFPAY ==
--- NOTE | 2018-05-21 12:16 | CT_ITS ---
STUDY: RIGHT LOWER EXTREMITY WITHOUT CONTRAST. REASON FOR EXAM: Male, 62 years old. ] Artificial hip, foot drop. RADIATION DOSAGE (If Supplied By Facility): CTDIvol = ( 11.66 ) mGy, DLP = ( 507.50 ) mGycm. Thank you Individualized dose optimization techniques were used for this CT.? TECHNIQUE: Thin slice helical CT acquisition through the right hip and proximal to mid thigh without contrast. Coronal and sagittal 2-D multiplanar reformatted images were saved to the PACS archive. COMPARISON: Femur 2017, hip/pelvis 02/26/2018, pelvis 12/24/2017. FINDINGS: Left total hip arthroplasty. The prosthetic components appear to be normally articulated. There is cerclage wire fixation surrounding the proximal femoral shaft medullary jair component of the plasty. There is no visible acute fracture. Right hip periarticular soft tissues exhibit no acute process. There is no effusion. Thigh soft tissues exhibit no acute process. Intrapelvic soft tissues exhibit no acute process. The expected course of the sacral nerves, sciatic notch and sciatic nerve exhibit no evidence of direct impingement. CT/Extremity Lower without Contra IMPRESSION: No acute fracture. Prosthetic components appear to be appropriately seated and articulated. Surrounding soft tissues exhibit no acute process. Electronically Signed: Grant Turk, at 12:28 EDT Tel , Service support ,
== END ==
PROVIDERS: Family Provider Internal Medicine; PCP Internal Medicine; Visit Provider Specialist
DX: Z96.641 Presence of right artificial hip joint (principal)
CPT/HCPCS: 73700

== ENCOUNTER → 2018-06-10 10:29 | Outpatient (CLI) | payer OTHER, SELFPAY ==
[2018-06-10 12:03] LABS: Absolute Lymphocyte Count 2.04 X10^3/ul (0.83-4.51); Absolute Neutrophil Count 10.9 X10^3/uL (2.0-7.7); Basophil# 0.03 X10^3/uL; Basophil% 0.2 % (0-1); Eosinophil# 0.11 X10^3/uL; Eosinophils% 0.8 % (0-5); Hematocrit 39.4 % (40-54); Hemoglobin 12.9 g/dl (13.0-16.5); Lymphocyte # 2.04 X10^3/ul (4.0); Lymphocyte % 14.3 % (19-41); Mean Corp Hgb Conc 32.7 g/gl (32-36); Mean Corpuscular Hgb 26.6 pg (27.0-32.0); Mean Corpuscular Volume 81.2 fL (80-94); Mean Platelet Vol. 8.1 fl (6.2-12.0); Monocyte# 1.16 X10^3/uL; Monocyte% 8.1 % (0-10); Neutrophil # 10.87 X10^3/uL (2.7-7.7); Neutrophil % 76.4 % (47-70); Platelet Count 546 K/mm3 (150-450); RBC Distribution Width CV 19.2 % (11.6-14.6); RBC Distribution Width SD 56.9 fl (35.1-43.9); Red Blood Count 4.85 M/mm3 (4.6-6.2); White Blood Count 14.2 K/mm3 (4.4-11.0)
[2018-06-10 12:18] LABS: ALB/GLOB Ratio 1.1 RATIO (0.9-2.4); AST(SGOT) 31 U/L (15-37); Alanine Aminotransfer ALT/SGPT 48 U/L (16-61); Albumin, Serum 4.1 g/dL (3.2-5.0); Alkaline Phosphatase 67 U/L (45-117); Anion Gap 12 (5-15); BUN 9 mg/dL (7-18); BUN/Creat Ratio 11.5 RATIO (10-20); Calcium,Total 9.3 mg/dL (8.5-10.1); Chloride 98 mmol/L (98-107); Creatinine, Serum 0.78 mg/dL (0.70-1.30); EST Glomerular Filtration Rate 107 mL/min (>60); Est Glom Filt Rate - Afr Amer 130 mL/min (>60); Globulin 3.6 g/dL (2.2-4.2); Glucose 116 mg/dL (74-106); Potassium 3.9 mmol/L (3.5-5.1); Protein, Total 7.7 g/dL (6.4-8.2); Sodium Level 137 mmol/L (136-145)
[2018-06-10 12:22] LABS: POSITIVE COUNT NO; POSITIVE DIFFERENTIAL NO; POSITIVE MORPHOLOGY NO
== END ==
PROVIDERS: Family Provider Internal Medicine; PCP Internal Medicine; Visit Provider Internal Medicine Rheumatology
DX: M06.4 Inflammatory polyarthropathy (principal); I10 Essential (primary) hypertension; F41.9 Anxiety disorder, unspecified; Z79.899 Other long term (current) drug therapy
CPT/HCPCS: 36415; 80053; 85025

== ENCOUNTER → 2018-07-23 10:25 | Outpatient (CLI) | payer OTHER, SELFPAY ==
[2018-07-23 12:19] LABS: Absolute Neutrophil Count 6.1 X10^3/uL (2.0-7.7); Basophil# 0.04 X10^3/uL; Basophil% 0.4 % (0-1); Eosinophil# 0.13 X10^3/uL; Eosinophils% 1.4 % (0-5); Hematocrit 36.9 % (40-54); Hemoglobin 12.1 g/dl (13.0-16.5); Lymphocyte % 22.2 % (19-41); Mean Corp Hgb Conc 32.8 g/gl (32-36); Mean Corpuscular Hgb 28.3 pg (27.0-32.0); Mean Corpuscular Volume 86.4 fL (80-94); Mean Platelet Vol. 7.9 fl (6.2-12.0); Monocyte# 0.76 X10^3/uL; Monocyte% 8.4 % (0-10); Neutrophil # 6.08 X10^3/uL (2.7-7.7); Neutrophil % 67.5 % (47-70); Platelet Count 546 K/mm3 (150-450); RBC Distribution Width CV 17.4 % (11.6-14.6); RBC Distribution Width SD 54.5 fl (35.1-43.9); Red Blood Count 4.27 M/mm3 (4.6-6.2)
[2018-07-23 12:23] LABS: POSITIVE COUNT NO; POSITIVE DIFFERENTIAL NO; POSITIVE MORPHOLOGY NO
[2018-07-23 12:26] LABS: ALB/GLOB Ratio 1.2 RATIO (0.9-2.4); AST(SGOT) 29 U/L (15-37); Alanine Aminotransfer ALT/SGPT 48 U/L (16-61); Albumin, Serum 3.8 g/dL (3.2-5.0); Alkaline Phosphatase 60 U/L (45-117); Anion Gap 10 (5-15); BUN 14 mg/dL (7-18); BUN/Creat Ratio 20.7 RATIO (10-20); Calcium,Total 9.1 mg/dL (8.5-10.1); Chloride 97 mmol/L (98-107); Creatinine, Serum 0.68 mg/dL (0.70-1.30); EST Glomerular Filtration Rate 127 mL/min (>60); Est Glom Filt Rate - Afr Amer 153 mL/min (>60); Globulin 3.3 g/dL (2.2-4.2); Glucose 108 mg/dL (74-106); Protein, Total 7.1 g/dL (6.4-8.2); Sodium Level 137 mmol/L (136-145)
== END ==
PROVIDERS: Referring Provider Internal Medicine Rheumatology; Visit Provider Internal Medicine Rheumatology
DX: M06.4 Inflammatory polyarthropathy (principal); I10 Essential (primary) hypertension; F41.9 Anxiety disorder, unspecified; Z79.899 Other long term (current) drug therapy
CPT/HCPCS: 36415; 80053; 85025

== ENCOUNTER → 2018-09-17 07:41 | Outpatient (CLI) | payer OTHER, SELFPAY ==
[2018-09-17 10:32] LABS: Absolute Lymphocyte Count 1.97 X10^3/ul (0.83-4.51); Absolute Neutrophil Count 5.9 X10^3/uL (2.0-7.7); Basophil# 0.05 X10^3/uL; Basophil% 0.6 % (0-1); Eosinophil# 0.23 X10^3/uL; Eosinophils% 2.5 % (0-5); Hematocrit 41.4 % (40-54); Hemoglobin 13.1 g/dl (13.0-16.5); Lymphocyte # 1.97 X10^3/ul (4.0); Lymphocyte % 21.8 % (19-41); Mean Corp Hgb Conc 31.6 g/gl (32-36); Mean Corpuscular Hgb 29.6 pg (27.0-32.0); Mean Corpuscular Volume 93.5 fL (80-94); Mean Platelet Vol. 8.6 fl (6.2-12.0); Monocyte# 0.85 X10^3/uL; Monocyte% 9.4 % (0-10); Neutrophil # 5.92 X10^3/uL (2.7-7.7); Neutrophil % 65.6 % (47-70); Platelet Count 415 K/mm3 (150-450); RBC Distribution Width CV 14.6 % (11.6-14.6); RBC Distribution Width SD 49.6 fl (35.1-43.9); Red Blood Count 4.43 M/mm3 (4.6-6.2)
[2018-09-17 10:41] LABS: POSITIVE COUNT NO; POSITIVE DIFFERENTIAL NO; POSITIVE MORPHOLOGY NO
[2018-09-17 10:55] LABS: ALB/GLOB Ratio 1.1 RATIO (0.9-2.4); AST(SGOT) 25 U/L (15-37); Alanine Aminotransfer ALT/SGPT 41 U/L (16-61); Albumin, Serum 3.8 g/dL (3.2-5.0); Alkaline Phosphatase 63 U/L (45-117); Anion Gap 8 (5-15); BUN 18 mg/dL (7-18); BUN/Creat Ratio 21.5 RATIO (10-20); Calcium,Total 8.9 mg/dL (8.5-10.1); Chloride 101 mmol/L (98-107); Creatinine, Serum 0.84 mg/dL (0.70-1.30); EST Glomerular Filtration Rate 99 mL/min (>60); Est Glom Filt Rate - Afr Amer 119 mL/min (>60); Globulin 3.6 g/dL (2.2-4.2); Glucose 100 mg/dL (74-106); Potassium 4.3 mmol/L (3.5-5.1); Protein, Total 7.4 g/dL (6.4-8.2); Sodium Level 139 mmol/L (136-145)
== END ==
PROVIDERS: Referring Provider Internal Medicine Rheumatology; Visit Provider Internal Medicine Rheumatology
DX: M06.4 Inflammatory polyarthropathy (principal); I10 Essential (primary) hypertension; F41.9 Anxiety disorder, unspecified; Z79.899 Other long term (current) drug therapy
CPT/HCPCS: 36415; 80053; 85025

== ENCOUNTER → 2018-12-16 13:26 | Outpatient (CLI) | payer OTHER, SELFPAY ==
[2018-12-16 15:24] LABS: Absolute Lymphocyte Count 2.11 X10^3/ul (0.83-4.51); Absolute Neutrophil Count 6.4 X10^3/uL (2.0-7.7); Basophil# 0.06 X10^3/uL; Basophil% 0.6 % (0-1); Eosinophil# 0.14 X10^3/uL; Eosinophils% 1.5 % (0-5); Hematocrit 41.4 % (40-54); Hemoglobin 13.6 g/dl (13.0-16.5); Lymphocyte # 2.11 X10^3/ul (4.0); Lymphocyte % 21.9 % (19-41); Mean Corp Hgb Conc 32.9 g/gl (32-36); Mean Corpuscular Hgb 30.4 pg (27.0-32.0); Mean Corpuscular Volume 92.4 fL (80-94); Mean Platelet Vol. 8.2 fl (6.2-12.0); Monocyte% 9.3 % (0-10); Neutrophil # 6.41 X10^3/uL (2.7-7.7); Neutrophil % 66.4 % (47-70); Platelet Count 461 K/mm3 (150-450); Red Blood Count 4.48 M/mm3 (4.6-6.2); White Blood Count 9.7 K/mm3 (4.4-11.0)
[2018-12-16 15:27] LABS: POSITIVE COUNT NO; POSITIVE DIFFERENTIAL NO; POSITIVE MORPHOLOGY NO
[2018-12-16 16:15] LABS: ALB/GLOB Ratio 1.2 RATIO (0.9-2.4); AST(SGOT) 28 U/L (15-37); Alanine Aminotransfer ALT/SGPT 48 U/L (16-61); Alkaline Phosphatase 60 U/L (45-117); Anion Gap 8 (5-15); BUN 12 mg/dL (7-18); BUN/Creat Ratio 14.5 RATIO (10-20); Calcium,Total 8.7 mg/dL (8.5-10.1); Chloride 101 mmol/L (98-107); Creatinine, Serum 0.82 mg/dL (0.70-1.30); EST Glomerular Filtration Rate 100 mL/min (>60); Est Glom Filt Rate - Afr Amer 122 mL/min (>60); Globulin 3.2 g/dL (2.2-4.2); Glucose 100 mg/dL (74-106); Potassium 3.9 mmol/L (3.5-5.1); Protein, Total 7.2 g/dL (6.4-8.2); Sodium Level 137 mmol/L (136-145)
== END ==
PROVIDERS: Referring Provider Internal Medicine Rheumatology; Visit Provider Internal Medicine Rheumatology
DX: M06.4 Inflammatory polyarthropathy (principal); I10 Essential (primary) hypertension; F41.9 Anxiety disorder, unspecified; Z79.899 Other long term (current) drug therapy
CPT/HCPCS: 36415; 80053; 85025

== ENCOUNTER → 2019-02-11 13:21 | Outpatient (CLI) | payer OTHER, SELFPAY ==
[2019-02-11 14:05] LABS: Absolute Lymphocyte Count 0.98 X10^3/ul (0.83-4.51); Absolute Neutrophil Count 9.9 X10^3/uL (2.0-7.7); Basophil# 0.02 X10^3/uL; Basophil% 0.2 % (0-1); Eosinophil# 0.02 X10^3/uL; Eosinophils% 0.2 % (0-5); Hematocrit 40.8 % (40-54); Hemoglobin 13.7 g/dl (13.0-16.5); Lymphocyte # 0.98 X10^3/ul (4.0); Lymphocyte % 8.4 % (19-41); Mean Corp Hgb Conc 33.6 g/gl (32-36); Mean Corpuscular Hgb 30.4 pg (27.0-32.0); Mean Corpuscular Volume 90.5 fL (80-94); Mean Platelet Vol. 7.7 fl (6.2-12.0); Monocyte# 0.68 X10^3/uL; Monocyte% 5.9 % (0-10); Neutrophil # 9.89 X10^3/uL (2.7-7.7); Platelet Count 464 K/mm3 (150-450); RBC Distribution Width CV 13.8 % (11.6-14.6); RBC Distribution Width SD 44.7 fl (35.1-43.9); Red Blood Count 4.51 M/mm3 (4.6-6.2); White Blood Count 11.6 K/mm3 (4.4-11.0)
[2019-02-11 14:14] LABS: POSITIVE COUNT NO; POSITIVE DIFFERENTIAL NO; POSITIVE MORPHOLOGY NO
[2019-02-11 14:16] LABS: ALB/GLOB Ratio 1.4 RATIO (0.9-2.4); AST(SGOT) 28 U/L (15-37); Alanine Aminotransfer ALT/SGPT 39 U/L (16-61); Albumin, Serum 4.4 g/dL (3.2-5.0); Alkaline Phosphatase 58 U/L (45-117); Anion Gap 6 (5-15); BUN 8 mg/dL (7-18); BUN/Creat Ratio 9.8 RATIO (10-20); Calcium,Total 8.9 mg/dL (8.5-10.1); Chloride 96 mmol/L (98-107); Creatinine, Serum 0.82 mg/dL (0.70-1.30); EST Glomerular Filtration Rate 102 mL/min (>60); Est Glom Filt Rate - Afr Amer 123 mL/min (>60); Globulin 3.2 g/dL (2.2-4.2); Glucose 109 mg/dL (74-106); Potassium 4.2 mmol/L (3.5-5.1); Protein, Total 7.6 g/dL (6.4-8.2); Sodium Level 131 mmol/L (136-145)
== END ==
PROVIDERS: Referring Provider Internal Medicine Rheumatology; Visit Provider Internal Medicine Rheumatology
DX: M06.4 Inflammatory polyarthropathy (principal); Z79.899 Other long term (current) drug therapy; I10 Essential (primary) hypertension; F41.9 Anxiety disorder, unspecified
CPT/HCPCS: 36415; 80053; 85025

== ENCOUNTER → 2019-05-13 09:46 | Outpatient (CLI) | payer OTHER, SELFPAY ==
[2019-05-13 12:31] LABS: ALB/GLOB Ratio 1.3 RATIO (0.9-2.4); AST(SGOT) 28 U/L (15-37); Alanine Aminotransfer ALT/SGPT 61 U/L (16-61); Albumin, Serum 3.9 g/dL (3.2-5.0); Alkaline Phosphatase 61 U/L (45-117); Anion Gap 8 (5-15); BUN 9 mg/dL (7-18); BUN/Creat Ratio 11.4 RATIO (10-20); Calcium,Total 8.5 mg/dL (8.5-10.1); Chloride 109 mmol/L (98-107); Creatinine, Serum 0.79 mg/dL (0.70-1.30); EST Glomerular Filtration Rate 105 mL/min (>60); Est Glom Filt Rate - Afr Amer 128 mL/min (>60); Glucose 97 mg/dL (74-106); Potassium 4.3 mmol/L (3.5-5.1); Protein, Total 6.9 g/dL (6.4-8.2); Sodium Level 142 mmol/L (136-145)
[2019-05-13 12:43] LABS: Absolute Lymphocyte Count 1.69 X10^3/uL (0.83-4.51); Absolute Neutrophil Count 5.5 X10^3/uL (2.0-7.7); Basophil# 0.04 X10^3/uL; Basophil% 0.5 % (0-1); Eosinophil# 0.19 X10^3/uL; Eosinophils% 2.3 % (0-5); Hematocrit 41.3 % (40-54); Hemoglobin 13.2 g/dL (13.0-16.5); Lymphocyte # 1.69 X10^3/ul (4.0); Lymphocyte % 20.9 % (19-41); Mean Corpuscular Hgb 31.1 pg (27.0-32.0); Mean Corpuscular Volume 97.2 fL (80-94); Mean Platelet Vol. 8.5 fl (6.2-12.0); Monocyte% 8.6 % (0-10); NRBC Flagged by Analyzer 0 % (0-5); Neutrophil # 5.45 X10^3/uL (2.7-7.7); Neutrophil % 67.3 % (47-70); Platelet Count 432 K/mm3 (150-450); RBC Distribution Width CV 14.2 % (11.6-14.6); RBC Distribution Width SD 49.7 fl (35.1-43.9); Red Blood Count 4.25 M/mm3 (4.6-6.2); White Blood Count 8.1 K/mm3 (4.4-11.0)
== END ==
PROVIDERS: Referring Provider Internal Medicine Rheumatology; Visit Provider Internal Medicine Rheumatology
DX: M06.4 Inflammatory polyarthropathy (principal); I10 Essential (primary) hypertension; F41.9 Anxiety disorder, unspecified; Z79.899 Other long term (current) drug therapy
CPT/HCPCS: 36415; 80053; 85025

== ENCOUNTER → 2019-08-05 09:08 | Outpatient (CLI) | payer OTHER, SELFPAY ==
[2019-08-05 10:15] LABS: Absolute Lymphocyte Count 2.76 X10^3/uL (0.83-4.51); Absolute Neutrophil Count 9.3 X10^3/uL (2.0-7.7); Basophil# 0.07 X10^3/uL; Basophil% 0.5 % (0-1); Eosinophil# 0.33 X10^3/uL; Eosinophils% 2.4 % (0-5); Hematocrit 18.1 % (40-54); Hemoglobin 5.1 g/dL (13.0-16.5); Lymphocyte # 2.76 X10^3/ul (4.0); Lymphocyte % 20.3 % (19-41); Mean Corp Hgb Conc 28.2 g/dL (32-36); Mean Corpuscular Hgb 21.8 pg (27.0-32.0); Mean Corpuscular Volume 77.4 fL (80-94); Mean Platelet Vol. 8.9 fl (6.2-12.0); Monocyte# 1.08 X10^3/uL; Monocyte% 7.9 % (0-10); Neutrophil # 9.32 X10^3/uL (2.7-7.7); Neutrophil % 68.5 % (47-70); POSITIVE COUNT YES; POSITIVE MORPHOLOGY YES; Platelet Count 658 K/mm3 (150-450); RBC Distribution Width CV 24.4 % (11.6-14.6); RBC Distribution Width SD 67.1 fl (35.1-43.9); Red Blood Count 2.34 M/mm3 (4.6-6.2); White Blood Count 13.6 K/mm3 (4.4-11.0)
[2019-08-05 10:16] LABS: Differential Indicated SCAN CRITERIA MET
[2019-08-05 10:35] LABS: ALB/GLOB Ratio 1.2 RATIO (0.9-2.4); AST(SGOT) 24 U/L (15-37); Alanine Aminotransfer ALT/SGPT 35 U/L (16-61); Albumin, Serum 3.7 g/dL (3.2-5.0); Alkaline Phosphatase 43 U/L (45-117); Anion Gap 4 (5-15); BUN 15 mg/dL (7-18); BUN/Creat Ratio 18.6 RATIO (10-20); Calcium,Total 8.6 mg/dL (8.5-10.1); Chloride 109 mmol/L (98-107); Creatinine, Serum 0.81 mg/dL (0.70-1.30); EST Glomerular Filtration Rate 103 mL/min (>60); Est Glom Filt Rate - Afr Amer 124 mL/min (>60); Glucose 108 mg/dL (74-106); Potassium 4.1 mmol/L (3.5-5.1); Protein, Total 6.7 g/dL (6.4-8.2); Sodium Level 139 mmol/L (136-145)
[2019-08-05 10:42] LABS: Anisocytosis 2+; Hypochromasia 3+; Platelet Estimate MOD INC (ADEQ)
[2019-08-05 10:43] LABS: Polychromasia RARE
[2019-08-06 12:28] LABS: Pathologist Review Reviewed
== END ==
PROVIDERS: Referring Provider Internal Medicine Rheumatology; Visit Provider Internal Medicine Rheumatology
DX: M06.4 Inflammatory polyarthropathy (principal); I10 Essential (primary) hypertension; F41.9 Anxiety disorder, unspecified; Z79.899 Other long term (current) drug therapy
CPT/HCPCS: 36415; 80053; 85025

== ENCOUNTER 2019-08-05 12:24 | Inpatient (IN) | payer OTHER, SELFPAY ==
[2019-08-05] VITALS (20 sets, daily range): BP systolic 98–157; BP diastolic 66–88; PULSE 65–97; RESP 14–21; TEMP 36.6–37.3; O2SAT 99–100; BMI 22.8; BMI 21.8
--- NOTE | 2019-08-05 13:38 | EKG12_ITS ---
Test Reason : GI BLEED Blood Pressure : / mmHG Vent. Rate : 074 BPM Atrial Rate : 074 BPM P-R Int : 144 ms QRS Dur : 132 ms QT Int : 414 ms P-R-T Axes : 068 068 040 degrees QTc Int : 459 ms Normal sinus rhythm Right bundle branch block Abnormal ECG Confirmed by SHANNON BERNARD, HANNAH ([id number]), society editor MAINOR ELIZABETH ([id number]) on 08/12/2019 9:37:05 A M Referred By: Amanda Ivory Confirmed By:DENISSE ORTEGA MD
--- NOTE | 2019-08-05 13:48 | ED.VIS.GEN ---
History of Present Illness Chief Complaint: Abn Labs Informant: Patient Onset: Days - 3 Context: Gradual Onset Timing: Continuous Narrative: Patient is a 63-year-old male with history of degenerative joint disease, hypertension and remote history of peptic ulcers presenting with anemia. Patient had routine blood work performed by his arc cutter plasma arc today. Hemoglobin was found to be 5.2. Patient notes that for the past 3 days he is been feeling more weak has had black stools. Patient states he is never had this before. He denies any associated abdominal pain. Notes he has had increased fatigue. He denies any nausea or vomiting. He is not on any NSAID therapy however he does take prednisone regularly. Patient initially attributed his symptoms to recently switching from gabapentin to Lyrica. He denies any other complaints at this time. Patient states he is never had a blood transfusion in the past but is agreeable to having one if needed. Past Medical History - Allergies and Home Meds Allergies/Adverse Reactions: Allergies No Known Allergies Allergy (Verified 08/05/19 12:26) Prior records reviewed: Yes Past Medical History: - - Tension, DJD Surgical History: - - right hip surgery Smoking Status: Never smoker - Family History Paternal Family History: Reports: No pertinent history Maternal Family History: Reports: Heart Disease, Hypertension, Stroke Review of Systems All systems negative except as indicated General: Reports: Malaise, - - Lightheaded Gastrointestinal: Reports: Melena Physical Exam Vital Signs/Narrative: Vital Signs Temp Pulse Resp BP Pulse Ox 08/05/19 12:26 99.2 F H 97 18 157/88 H 100 Inital Vital Signs reviewed: Yes General: Well nourished, Well developed, No Acute Distress Head: Normocephalic, Atraumatic Eyes: Perrl, EOMI, Pale conjunctiva ENT: Moist mucous membranes, No rhinorrhea Neck: Supple, Nontender Cardiovascular: Regular rate, Regular rhythm, Murmur Respiratory: No distress, CTA bilaterally, Chest nontender Abdomen: Soft, Nontender, Nondistended, Normal bowel sounds Back: Nontender, Normal Inspection Extremities: No edema, - - Right lower extremity is in a brace Skin: No rash, Pallor Neurological: Alert, Oriented x3, Cranial nerves II-XII grossly intact, Normal Strength, Normal Sensation Psychological: Normal affect, Normal Mood Diagnostic/Tx/Re-eval Laboratory Data 08/05/19 08/05/19 08/05/19 13:51 13:51 13:51 WBC 11.6 H RBC 2.10 L Hgb 4.5 L* Hct 16.0 L MCV 76.2 L MCH 21.4 L MCHC 28.1 L RDW Std Deviation 67.3 H RDW Coeff of Christ 24.3 H Plt Count 553 H MPV 8.5 Immature Gran % (Auto) 0.500 Neut % (Auto) 77.4 H Lymph % (Auto) 14.5 L Kingfisher % (Auto) 6.3 Eos % (Auto) 1.0 Baso % (Auto) 0.3 Absolute Neuts (auto) 8.9 H Absolute Lymphs (auto) 1.68 Nucleated RBC % 0.5 Diff Path Review May foll Platelet Estimate SLT INC Hypochromasia 3+ Anisocytosis 2+ PT 13.5 INR 1.1 APTT 26.1 Sodium 138 Potassium 3.8 Chloride 108 H Carbon Dioxide 26.0 Anion Gap 4 L BUN 11 Creatinine 0.75 Estim Creat Clear Calc 92.16 Est GFR (MDRD) Af Amer 135 Est GFR (MDRD) Non-Af 112 BUN/Creatinine Ratio 14.6 Glucose 99 Calcium 8.6 Troponin I < 0.015 Blood Type Antibody Screen Crossmatch 08/05/19 13:51 WBC RBC Hgb Hct MCV MCH MCHC RDW Std Deviation RDW Coeff of Christ Plt Count MPV Immature Gran % (Auto) Neut % (Auto) Lymph % (Auto) Kingfisher % (Auto) Eos % (Auto) Baso % (Auto) Absolute Neuts (auto) Absolute Lymphs (auto) Nucleated RBC % Diff Path Review Platelet Estimate Hypochromasia Anisocytosis PT INR APTT Sodium Potassium Chloride Carbon Dioxide Anion Gap BUN Creatinine Estim Creat Clear Calc Est GFR (MDRD) Af Amer Est GFR (MDRD) Non-Af BUN/Creatinine Ratio Glucose Calcium Troponin I Blood Type O POSITIVE Antibody Screen NEGATIVE Crossmatch See Detail - Rhythm Strip Rhythm Strip: Sinus Rhythm Rate: 74 Ectopy: None - EKG Initial EKG Interpretation: Sinus Rhythm, - - Normal sinus rhythm at a rate of 74 Normal intervals Right bundle branch block Normal axis Normal ST segments - Medical Decision Making Patient is evaluated for anemia that was found on routine outpatient blood work. Patient has been symptomatic and the fact that he has been feeling lightheaded. He previously had attributed this to being on gabapentin. Patient states that he did have a black bowel movement 3 days ago but had a normal bowel movement this morning. He is guaiac negative. His repeat hemoglobin in the ER was 4.5. Patient is hemodynamically stable which leads me to believe that this is likely been a slow drop in his hemoglobin. Patient is ordered 2 units from the ER. I did order IV Protonix empirically in the emergency room. I did rafiq risk and benefits of a blood transfusion. He is agreeable to this. Patient remained hemodynamically stable in the ER. He is given small 500 cc bolus. He is admitted to the ICU because of his significant anemia. Discussed with surgery on-call, Dr. Waite request of admitting physician. Patient is admitted to Dr. Ivory service. ED Disposition - Plan for ED Patient: Disposition: Acute Care Hospital [facility] Diagnosis: Anemia, History of peptic ulcer
[2019-08-05 14:07] LABS: Absolute Lymphocyte Count 1.68 X10^3/uL (0.83-4.51); Absolute Neutrophil Count 8.9 X10^3/uL (2.0-7.7); Basophil# 0.04 X10^3/uL; Basophil% 0.3 % (0-1); Eosinophil# 0.11 X10^3/uL; Hemoglobin 4.5 g/dL (13.0-16.5); Lymphocyte # 1.68 X10^3/ul (4.0); Lymphocyte % 14.5 % (19-41); Mean Corp Hgb Conc 28.1 g/dL (32-36); Mean Corpuscular Hgb 21.4 pg (27.0-32.0); Mean Corpuscular Volume 76.2 fL (80-94); Mean Platelet Vol. 8.5 fl (6.2-12.0); Monocyte# 0.73 X10^3/uL; Monocyte% 6.3 % (0-10); NRBC Flagged by Analyzer 0.5 % (0-5); Neutrophil # 8.93 X10^3/uL (2.7-7.7); Neutrophil % 77.4 % (47-70); POSITIVE COUNT YES; POSITIVE MORPHOLOGY YES; Platelet Count 553 K/mm3 (150-450); RBC Distribution Width CV 24.3 % (11.6-14.6); RBC Distribution Width SD 67.3 fl (35.1-43.9); White Blood Count 11.6 K/mm3 (4.4-11.0)
[2019-08-05 14:12] LABS: Differential Indicated SCAN CRITERIA MET
[2019-08-05 14:17] LABS: International Normalized Ratio 1.1; Prothrombin Time (Protime)PT. 13.5 SECONDS (11.7-14.9)
--- NOTE | 2019-08-05 14:17 | ED.RN ---
HGB 4.5. AWARE.
[2019-08-05 14:18] LABS: Partial Thromboplast Time 26.1 Seconds (24.1-36.2)
[2019-08-05 14:21] LABS: Anion Gap 4 (5-15); BUN 11 mg/dL (7-18); BUN/Creat Ratio 14.6 RATIO (10-20); Calcium,Total 8.6 mg/dL (8.5-10.1); Chloride 108 mmol/L (98-107); Creatinine, Serum 0.75 mg/dL (0.70-1.30); EST Glomerular Filtration Rate 112 mL/min (>60); Est Glom Filt Rate - Afr Amer 135 mL/min (>60); Estimated Creatinine Clearance 92.16 ml/min; Glucose 99 mg/dL (74-106); Potassium 3.8 mmol/L (3.5-5.1); Sodium Level 138 mmol/L (136-145)
[2019-08-05 14:47] LABS: Anisocytosis 2+; Hypochromasia 3+; Platelet Estimate SLT INC (ADEQ)
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
[2019-08-05] MEDS: Pregabalin 50 MG Capsule 200 MG PO (20:23)
[2019-08-05] MEDS: Acetaminophen 500 MG Tablet 1000 MG PO (20:23)
[2019-08-05] MEDS: 0.9% Normal Saline 1,000 ML 125 ML IV (20:26)
[2019-08-05 21:35] LABS: Hematocrit 21.3 % (40-54); Hemoglobin 6.5 g/dL (13.0-16.5)
[2019-08-06] VITALS (18 sets, daily range): BP systolic 110–139; BP diastolic 66–96; PULSE 59–88; RESP 10–22; TEMP 36.2–37; O2SAT 97–100
[2019-08-06] MEDS: 0.9% Normal Saline 1,000 ML 125 ML IV (04:07)
[2019-08-06 04:22] LABS: Anion Gap 7 (5-15); BUN 10 mg/dL (7-18); BUN/Creat Ratio 13.5 RATIO (10-20); Calcium,Total 7.5 mg/dL (8.5-10.1); Chloride 113 mmol/L (98-107); Creatinine, Serum 0.74 mg/dL (0.70-1.30); EST Glomerular Filtration Rate 114 mL/min (>60); Est Glom Filt Rate - Afr Amer 138 mL/min (>60); Estimated Creatinine Clearance 91.06 ml/min; Glucose 92 mg/dL (74-106); Sodium Level 146 mmol/L (136-145)
[2019-08-06 04:29] LABS: Absolute Lymphocyte Count 1.92 X10^3/uL (0.83-4.51); Absolute Neutrophil Count 4.9 X10^3/uL (2.0-7.7); Basophil# 0.06 X10^3/uL; Basophil% 0.8 % (0-1); Eosinophil# 0.22 X10^3/uL; Eosinophils% 2.8 % (0-5); Hematocrit 21.5 % (40-54); Hemoglobin 6.5 g/dL (13.0-16.5); Lymphocyte # 1.92 X10^3/ul (4.0); Lymphocyte % 24.6 % (19-41); Mean Corp Hgb Conc 30.2 g/dL (32-36); Mean Corpuscular Hgb 23.7 pg (27.0-32.0); Mean Corpuscular Volume 78.5 fL (80-94); Mean Platelet Vol. 8.5 fl (6.2-12.0); Monocyte# 0.63 X10^3/uL; Monocyte% 8.1 % (0-10); NRBC Flagged by Analyzer 0.8 % (0-5); Neutrophil # 4.93 X10^3/uL (2.7-7.7); Neutrophil % 63.3 % (47-70); POSITIVE MORPHOLOGY YES; Platelet Count 456 K/mm3 (150-450); RBC Distribution Width CV 21.4 % (11.6-14.6); RBC Distribution Width SD 60.7 fl (35.1-43.9); Red Blood Count 2.74 M/mm3 (4.6-6.2); White Blood Count 7.8 K/mm3 (4.4-11.0)
[2019-08-06 04:33] LABS: Differential Indicated SCAN CRITERIA MET
[2019-08-06 05:11] LABS: Anisocytosis 2+; Differential Comment SCANNED
[2019-08-06] MEDS: Acetaminophen 500 MG Tablet 1000 MG PO (05:57)
--- NOTE | 2019-08-06 06:10 | PN.SURG_ITS ---
Patient Problems: Active and Suspected Problems GI bleed (Acute) Acute blood loss anemia (Acute) Anemia (Acute) Subjective: Pt with absolutely no complaints No pain, no nausea, no stools - Physical Exam Abdomen: Bowel Sounds Present, Soft, Non Tender Vital Signs Temp Pulse Resp BP Pulse Ox 97.2 F L 88 19 H 110/66 99 08/06/19 04:00 08/06/19 06:00 08/06/19 06:00 08/06/19 06:00 08/06/19 06:00 Oxygen Flow Rate (L/min) 2 Oxygen Delivery Method Room Air Weight: 137 lb 2.04 oz Body Mass Index (BMI) 21.8 Intake and Output for Last 24 Hours 08/04/19 08/05/19 08/06/19 23:59 23:59 23:59 Intake Total 1262.08 / 1786.25 1250.83 / 1250.83 Output Total 425 / 1450 1525 / 1525 Balance 837.08 / 336.25 -274.17 / -274.17 Microbiology Past 72 Hours 08/05/19 14:00 Stool Occult Blood (JULITA) - Final Stool Laboratory Tests Past 24 Hrs 08/05/19 08/05/19 08/05/19 13:51 13:51 13:51 WBC 11.6 H RBC 2.10 L Hgb 4.5 L* Hct 16.0 L MCV 76.2 L MCH 21.4 L MCHC 28.1 L RDW Std Deviation 67.3 H RDW Coeff of Christ 24.3 H Plt Count 553 H MPV 8.5 Immature Gran % (Auto) 0.500 Neut % (Auto) 77.4 H Lymph % (Auto) 14.5 L [place] % (Auto) 6.3 Eos % (Auto) 1.0 Baso % (Auto) 0.3 Absolute Neuts (auto) 8.9 H Absolute Lymphs (auto) 1.68 Nucleated RBC % 0.5 Differential Comment Diff Path Review May foll Platelet Estimate SLT INC Hypochromasia 3+ Anisocytosis 2+ PT 13.5 INR 1.1 APTT 26.1 Sodium 138 Potassium 3.8 Chloride 108 H Carbon Dioxide 26.0 Anion Gap 4 L BUN 11 Creatinine 0.75 Estim Creat Clear Calc 92.16 Est GFR (MDRD) Af Amer 135 Est GFR (MDRD) Non-Af 112 BUN/Creatinine Ratio 14.6 Glucose 99 Calcium 8.6 Troponin I < 0.015 Blood Type Antibody Screen Crossmatch 08/05/19 08/05/19 08/06/19 13:51 21:25 03:45 WBC 7.8 RBC 2.74 L Hgb 6.5 L 6.5 L Hct 21.3 L 21.5 L MCV 78.5 L MCH 23.7 L MCHC 30.2 L RDW Std Deviation 60.7 H RDW Coeff of Christ 21.4 H Plt Count 456 H MPV 8.5 Immature Gran % (Auto) 0.400 Neut % (Auto) 63.3 Lymph % (Auto) 24.6 [place] % (Auto) 8.1 Eos % (Auto) 2.8 Baso % (Auto) 0.8 Absolute Neuts (auto) 4.9 Absolute Lymphs (auto) 1.92 Nucleated RBC % 0.8 Differential Comment SCANNED Diff Path Review Platelet Estimate Hypochromasia Anisocytosis 2+ PT INR APTT Sodium Potassium Chloride Carbon Dioxide Anion Gap BUN Creatinine Estim Creat Clear Calc Est GFR (MDRD) Af Amer Est GFR (MDRD) Non-Af BUN/Creatinine Ratio Glucose Calcium Troponin I Blood Type O POSITIVE Antibody Screen NEGATIVE Crossmatch See Detail 08/06/19 03:45 WBC RBC Hgb Hct MCV MCH MCHC RDW Std Deviation RDW Coeff of Christ Plt Count MPV Immature Gran % (Auto) Neut % (Auto) Lymph % (Auto) [place] % (Auto) Eos % (Auto) Baso % (Auto) Absolute Neuts (auto) Absolute Lymphs (auto) Nucleated RBC % Differential Comment Diff Path Review Platelet Estimate Hypochromasia Anisocytosis PT INR APTT Sodium 146 H Potassium 4.0 Chloride 113 H Carbon Dioxide 26.0 Anion Gap 7 BUN 10 Creatinine 0.74 Estim Creat Clear Calc 91.06 Est GFR (MDRD) Af Amer 138 Est GFR (MDRD) Non-Af 114 BUN/Creatinine Ratio 13.5 Glucose 92 Calcium 7.5 L Troponin I Blood Type Antibody Screen Crossmatch Medical Necessity - Tobacco Use Smoking Status: Former smoker Tobacco Use: Chew Assessment/Plan All Active Problems revision of right hip THR (Acute) GI bleed (Acute) Acute blood loss anemia (Acute) Anemia (Acute) Plan EGD/cscope Saturday after bowel prep My office will provide pt with diet and bowel prep instructions. Thank you
--- NOTE | 2019-08-06 06:31 | PN_ITS ---
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 He denied nausea, vomiting, abdominal pain but did admit to black stools for 3 days. Hemoglobin in the emergency department was 4.5 with an MCV of 76.2. Platelets were increased at 553,000. He was admitted to the intensive care unit and transfused with 2 units of packed red blood cells. Stool was Hemoccult negative. Dr. Waite was consulted for possible endoscopy. Dr. Waite did not feel he was currently bleeding and elected to monitor the HH over the next 24-48 hours and if it remains stable he will be scheduled for an OP endoscopy next Saturday. All events of the past 24 hours been reviewed. Afebrile since admission. He is not tachycardic. Blood pressure is within normal limits and he is maintaining an oxygen saturation of 99 to 100% on room air. All lab was personally reviewed. Hemoglobin is 6.5 and stable. He has microcytic indices and a markedly elevated RDW. There is anisocytosis and hypochromasia on the CBC. Sodium is mildly increased at 146 today. BUN is 10 and the creatinine is 0.74. Calcium is low at 7.5 bu t when corrected for hypoalbuminemia it is low normal at 8.3 Tells me that he is feeling better today. Denies lightheadedness and also denies SOB and CP. He denies abdominal pain/epigastric pain, nausea, diarrhea. Tells me he rarely takes prednisone and when he does he takes 1 tablet for no more than 3 days at a time. He did take prednisone over the weekend. He smokes pot daily to help control pain. Can not remember when the last time was he had hand XRAYS. Denies pain in his feet. Does not take Plaquenil and does not take NSAID's. PUD was quite a long time ago. Quit smoking cigarettes in the 70's. Does not have a prescription for marijuana. No diarrhea. does not take a H2 hailee or a PPI. Has never had a colonoscopy or an EGD. - Physical Exam General: Alert, Oriented x3, Cooperative, No apparent distress HEENT: Atraumatic, Normocephalic Oral: Moist Mucosa Neck: Supple, No JVD, Negative Carotid Bruits, Trachea Midline Lungs: Clear to auscultation, Diminished Cardiovascular: Regular rate, Regular Rhythm, Normal S1, Normal S2, Murmur - soft systolic MM at the apex and also with a systolic MM in the left axilla, No Gallop Abdomen: Bowel Sounds Present - not hyperactive, Soft, Non Tender, Non-Distended Extremities: No clubbing, No cyanosis, No edema, No Calf Tenderness, Peripheral Pulses Normal Skin: No rashes, No breakdown Neurological: Cranial nerves II-XII grossly intact, Neuro grossly intact Psych/Mental Status: Normal Affect, Appropriate Vital Signs Temp Pulse Resp BP Pulse Ox 97.2 F L 88 19 H 110/66 99 08/06/19 04:00 08/06/19 06:00 08/06/19 06:00 08/06/19 06:00 08/06/19 06:00 Oxygen Flow Rate (L/min) 2 Oxygen Delivery Method Room Air Weight: 137 lb 2.04 oz Body Mass Index (BMI) 21.8 Intake and Output for Last 24 Hours 08/04/19 08/05/19 08/06/19 23:59 23:59 23:59 Intake Total 1262.08 / 1786.25 1250.83 / 1250.83 Output Total 425 / 1450 1525 / 1525 Balance 837.08 / 336.25 -274.17 / -274.17 Microbiology Past 72 Hours 08/05/19 14:00 Stool Occult Blood (JULITA) - Final Stool Laboratory Tests Past 24 Hrs 08/05/19 08/05/19 08/05/19 13:51 13:51 13:51 WBC 11.6 H RBC 2.10 L Hgb 4.5 L* Hct 16.0 L MCV 76.2 L MCH 21.4 L MCHC 28.1 L RDW Std Deviation 67.3 H RDW Coeff of Christ 24.3 H Plt Count 553 H MPV 8.5 Immature Gran % (Auto) 0.500 Neut % (Auto) 77.4 H Lymph % (Auto) 14.5 L [place] % (Auto) 6.3 Eos % (Auto) 1.0 Baso % (Auto) 0.3 Absolute Neuts (auto) 8.9 H Absolute Lymphs (auto) 1.68 Nucleated RBC % 0.5 Differential Comment Diff Path Review May foll Platelet Estimate SLT INC Hypochromasia 3+ Anisocytosis 2+ PT 13.5 INR 1.1 APTT 26.1 Sodium 138 Potassium 3.8 Chloride 108 H Carbon Dioxide 26.0 Anion Gap 4 L BUN 11 Creatinine 0.75 Estim Creat Clear Calc 92.16 Est GFR (MDRD) Af Amer 135 Est GFR (MDRD) Non-Af 112 BUN/Creatinine Ratio 14.6 Glucose 99 Calcium 8.6 Troponin I < 0.015 Blood Type Antibody Screen Crossmatch 08/05/19 08/05/19 08/06/19 13:51 21:25 03:45 WBC 7.8 RBC 2.74 L Hgb 6.5 L 6.5 L Hct 21.3 L 21.5 L MCV 78.5 L MCH 23.7 L MCHC 30.2 L RDW Std Deviation 60.7 H RDW Coeff of Christ 21.4 H Plt Count 456 H MPV 8.5 Immature Gran % (Auto) 0.400 Neut % (Auto) 63.3 Lymph % (Auto) 24.6 [place] % (Auto) 8.1 Eos % (Auto) 2.8 Baso % (Auto) 0.8 Absolute Neuts (auto) 4.9 Absolute Lymphs (auto) 1.92 Nucleated RBC % 0.8 Differential Comment SCANNED Diff Path Review Platelet Estimate Hypochromasia Anisocytosis 2+ PT INR APTT Sodium Potassium Chloride Carbon Dioxide Anion Gap BUN Creatinine Estim Creat Clear Calc Est GFR (MDRD) Af Amer Est GFR (MDRD) Non-Af BUN/Creatinine Ratio Glucose Calcium Troponin I Blood Type O POSITIVE Antibody Screen NEGATIVE Crossmatch See Detail 08/06/19 03:45 WBC RBC Hgb Hct MCV MCH MCHC RDW Std Deviation RDW Coeff of Christ Plt Count MPV Immature Gran % (Auto) Neut % (Auto) Lymph % (Auto) [place] % (Auto) Eos % (Auto) Baso % (Auto) Absolute Neuts (auto) Absolute Lymphs (auto) Nucleated RBC % Differential Comment Diff Path Review Platelet Estimate Hypochromasia Anisocytosis PT INR APTT Sodium 146 H Potassium 4.0 Chloride 113 H Carbon Dioxide 26.0 Anion Gap 7 BUN 10 Creatinine 0.74 Estim Creat Clear Calc 91.06 Est GFR (MDRD) Af Amer 138 Est GFR (MDRD) Non-Af 114 BUN/Creatinine Ratio 13.5 Glucose 92 Calcium 7.5 L Troponin I Blood Type Antibody Screen Crossmatch Medical Necessity - Tobacco Use Smoking Status: Former smoker Tobacco Use: Chew Assessment/Plan All Active Problems revision of right hip THR (Acute) GI bleed (Acute) Acute blood loss anemia (Acute) Anemia (Acute) Impressions 1. severe symptomatic microcytic anemia with thrombocytosis - has already been transfused so this will make the iron studies invalid. Iron sucrose 200 mg ordered and will DC on an iron supplement and Vit C. 2. remote hx of PUD and GI bleed. Stool heme neg 3. Daily marijuana use for pain control 4. tobacco dependence - chews. 5. GERD Transfuse 1 additional unit PRBC's and recheck an HH after the transfusion. Iron sucrose 200 mg today Change the Protonix to PO tobacco abstinence advised. Scheduled for OP endoscopy with Dr. Waite next Saturday.....EGD and a colonoscopy D/W Dr. [facility] were negative this AM Code Visit Inpatient E&M: 32364 Subs Hosp L2
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
[2019-08-06 07:07] LABS: AST(SGOT) 20 U/L (15-37); Alanine Aminotransfer ALT/SGPT 29 U/L (16-61); Albumin, Serum 3.1 g/dL (3.2-5.0); Alkaline Phosphatase 36 U/L (45-117); Bilirubin, Direct 0.15 mg/dL (0.00-0.30); Globulin 2.4 g/dL (2.2-4.2); Protein, Total 5.5 g/dL (6.4-8.2)
[2019-08-06] MEDS: Pantoprazole Sodium 40 MG Tablet PO (08:44)
[2019-08-06] MEDS: Folic Acid 1 MG Tablet 2 MG PO (08:44)
[2019-08-06] MEDS: Pregabalin 50 MG Capsule 200 MG PO (08:49)
[2019-08-06] MEDS: Nicotine Polacrilex 2 MG GUM PO (09:50)
--- NOTE | 2019-08-06 10:10 | CASEMGMT ---
RN CM Assessment Presentation: Intro role of CM and purpose of RN CM assessment to patient and his , daughter granddaughter in room. Pt is awake, alert and able to participate in assessment. Demographics, PCP and Pharmacy verified. Pt does not have PCP currently, states I haven't needed one. Pt states he is independent at home, plans to return home on discharge. Family did not wish PCP: No PCP. Discussed benefits of establishing with PCP to patient. Pt and are agreeable to have list provider with [employer] benefits. DANIELLE BALTAZAR called to insurance, provider website given. Pt is with [employer]. List printed from website and reviewed with pt. Per pt, he has not established with PCP because I don't like being touched. Pt did not elaborate as to reason behind this, however states he has difficulty during exams. During discussion, DANIELLE BALTAZAR inquired if pt had difficulty with having VS taken, pt states no. RN GIOVANNY encouraged pt to establish with PCP, and on initial visit, let staff know his limitations. RN GIOVANNY inquired how pt is managing during this visit. Pt states staff has been good with him and he knows some things need done. He feels he is handling it well and no difficulty at this time. Specialists: Dr. Thurston, neurologist; Dr. Williamson, flat finisher [facility]erred [facility]acy: [facility] Insurance: [employer] ([employer] network) Prescription Benefit: yes LNOK: Nasra Capone Living Arrangements: Lives with , states he is independent with ADL's. 2 steps in home, no difficulty with these. Transportation: able to drive if needed. DME: cane, walker- uses cane only HHC: none Patient DC goals: Home, no needs identified. DC PLAN: Anticipate home on discharge. Pebbles CLEMENTS RN ACM
[2019-08-06 12:11] LABS: Hematocrit 25.2 % (40-54)
[2019-08-06 12:29] LABS: Pathologist Review Reviewed
--- NOTE | 2019-08-06 13:48 | PCM.DC ---
- Discharge Diagnoses Current Active Problems: Current Active and Chronic Problems GI bleed (Acute) Acute blood loss anemia (Acute) Chewing tobacco use (Chronic) Former cigarette smoker (Chronic) Rheumatoid arthritis (Chronic) GERD (gastroesophageal reflux disease) (Chronic) History of peptic ulcer (Chronic) Anemia (Acute) You will use the following diet at home:: Other - diet high in iron Your food should be the consistency of: Regular Your liquids should be the consistency of: Regular/Thin Discharge Activity: - - You are still anemia but out of the danger zone. You may be more short of breath with exertion than you were when you were not anemic and you may tire more easily. Call your doctor if you observe: Fever of 101 or Higher, Shortness of breath, Dizziness, Fainting spells, Chest pain Instructions: Iron Supplements Additional Instructions: 1. Take the iron supplement and the vitamin C supplement at the same time and take them with meals. 2. Your calcium is borderline low and this is likely due to to a vitamin D deficiency. Vitamin D is necessary to absorb calcium from the gut and vitamin D comes from the sun(something we often don't see too much in [place]) I have prescribed a Vitamin D supplement for you and you should take it twice a day. 3. Do not take Aspirin unless you had hip or knee surgery within the past month or you have coronary artery disease. Aspirin can cause ulcers. Allergies/Adverse Reactions: Allergies No Known Allergies Allergy (Verified 08/05/19 12:26) Medications to take at Discharge Folic Acid 2 mg PO DAILY@0800 02/17/18 Acetaminophen [Tylenol Arthritis] 1,300 mg PO Q12H 08/05/19 Multivit-Min/FA/Lycopen/Lutein [Centrum Silver Men Tablet] 1 tab PO DAILY 08/05/19 Prednisone 10 mg PO DAILY PRN PRN 08/05/19 Pregabalin 200 mg PO BID 08/05/19 Ascorbic Acid [Vitamin C] 500 mg PO BIDCM #60 tab 08/06/19 Cholecalciferol (Vitamin D3) [Vitamin D3] 1,000 unit PO BID #60 cap 08/06/19 Ferrous Sulfate 325 mg PO BIDCM #60 tab 08/06/19 Methotrexate 20 mg PO TU #0 08/06/19 Pantoprazole Sodium [Protonix] 40 mg PO BID #60 tab 08/06/19 The following prescriptions were given: Ferrous Sulfate 325 mg PO BIDCM #60 tab Transmission Status: Pending to [id number] Pantoprazole Sodium [Protonix] 40 mg PO BID #60 tab Transmission Status: Pending to [id number] Ascorbic Acid [Vitamin C] 500 mg PO BIDCM #60 tab Transmission Status: Pending to [id number] Cholecalciferol (Vitamin D3) [Vitamin D3] 1,000 unit PO BID #60 cap Transmission Status: Received by [id number] Primary Care Physician: Care Physician,No Primary [Primary Care Provider] - Test Results: Test results from this visit will be discussed in further detail at your follow-up appointment, if applicable. Please Follow Up With: Romeo Waite MD When: doctor Mariann's office will call you with instructions about the endoscopy Please Follow Up With: Nancy Williamson MD When: as previously arranged Proposed Discharge Date: 08/06/19
--- NOTE | 2019-08-06 14:08 | PCM.DC.SUM ---
Discharge Date and Diagnosis Date of Admission: 08/05/19 Date of Discharge: 08/06/19 - Primary Discharge Diagnosis Active and Suspected Problems Severe acute on chronic anemia (Acute) Microcytic anemia (Acute) -more likely than not due to chronic blood loss Iron deficiency anemia due to chronic blood loss (Suspected) - Secondary Discharge Diagnosis Chronic Problems Hypertension (Chronic) DJD (degenerative joint disease) (Chronic) Tobacco dependence-chewing tobacco use (Chronic) Former cigarette smoker (Chronic) Rheumatoid arthritis (Chronic) GERD (gastroesophageal reflux disease) (Chronic) History of peptic ulcer (Chronic) Vitamin D deficiency Daily marijuana use to control pain Hospital Course and Treatment Imaging Results: Laboratory Tests 08/06/19 08/06/19 08/06/19 Range/Units 11:55 11:55 03:45 WBC (4.4-11.0) K/mm3 RBC (4.6-6.2) M/mm3 Hgb 8.0 L (13.0-16.5) g/dL Hct 25.2 L (40-54) % MCV (80-94) fL MCH (27.0-32.0) pg MCHC (32-36) g/dL RDW Std Deviation (35.1-43.9) fl RDW Coeff of Christ (11.6-14.6) % Plt Count (150-450) K/mm3 MPV (6.2-12.0) fl Immature Gran % (Auto) (0.0-0.9) % Neut % (Auto) (47-70) % Lymph % (Auto) (19-41) % [place] % (Auto) (0-10) % Eos % (Auto) (0-5) % Baso % (Auto) (0-1) % Absolute Neuts (auto) (2.0-7.7) X10^3/uL Absolute Lymphs (auto) (0.83-4.51) X10^3/uL Nucleated RBC % (0-5) % Differential Comment Diff Path Review Platelet Estimate (ADEQ) Hypochromasia Anisocytosis PT (11.7-14.9) SECONDS INR APTT (24.1-36.2) Seconds Sodium (136-145) mmol/L Potassium (3.5-5.1) mmol/L Chloride (98-107) mmol/L Carbon Dioxide (21.0-32.0) mmol/L Anion Gap (5-15) BUN (7-18) mg/dL Creatinine (0.70-1.30) mg/dL Estim Creat Clear Calc ml/min Est GFR (MDRD) Af Amer (>60) mL/min Est GFR (MDRD) Non-Af (>60) mL/min BUN/Creatinine Ratio (10-20) RATIO Glucose (74-106) mg/dL Calcium (8.5-10.1) mg/dL Total Bilirubin 0.70 (0.20-1.00) mg/dL Direct Bilirubin 0.15 (0.00-0.30) mg/dL AST 20 (15-37) U/L ALT 29 (16-61) U/L Alkaline Phosphatase 36 L (45-117) U/L Troponin I (<0.045) ng/mL Total Protein 5.5 L (6.4-8.2) g/dL Albumin 3.1 L (3.2-5.0) g/dL Globulin 2.4 (2.2-4.2) g/dL Vitamin D 25-Hydroxy 27.0 L (29.95-100.01) ng/mL Blood Type Antibody Screen Crossmatch 08/06/19 08/06/19 08/05/19 Range/Units 03:45 03:45 21:25 WBC 7.8 (4.4-11.0) K/mm3 RBC 2.74 L (4.6-6.2) M/mm3 Hgb 6.5 L 6.5 L (13.0-16.5) g/dL Hct 21.5 L 21.3 L (40-54) % MCV 78.5 L (80-94) fL MCH 23.7 L (27.0-32.0) pg MCHC 30.2 L (32-36) g/dL RDW Std Deviation 60.7 H (35.1-43.9) fl RDW Coeff of Christ 21.4 H (11.6-14.6) % Plt Count 456 H (150-450) K/mm3 MPV 8.5 (6.2-12.0) fl Immature Gran % (Auto) 0.400 (0.0-0.9) % Neut % (Auto) 63.3 (47-70) % Lymph % (Auto) 24.6 (19-41) % [place] % (Auto) 8.1 (0-10) % Eos % (Auto) 2.8 (0-5) % Baso % (Auto) 0.8 (0-1) % Absolute Neuts (auto) 4.9 (2.0-7.7) X10^3/uL Absolute Lymphs (auto) 1.92 (0.83-4.51) X10^3/uL Nucleated RBC % 0.8 (0-5) % Differential Comment SCANNED Diff Path Review Platelet Estimate (ADEQ) Hypochromasia Anisocytosis 2+ PT (11.7-14.9) SECONDS INR APTT (24.1-36.2) Seconds Sodium 146 H (136-145) mmol/L Potassium 4.0 (3.5-5.1) mmol/L Chloride 113 H (98-107) mmol/L Carbon Dioxide 26.0 (21.0-32.0) mmol/L Anion Gap 7 (5-15) BUN 10 (7-18) mg/dL Creatinine 0.74 (0.70-1.30) mg/dL Estim Creat Clear Calc 91.06 ml/min Est GFR (MDRD) Af Amer 138 (>60) mL/min Est GFR (MDRD) Non-Af 114 (>60) mL/min BUN/Creatinine Ratio 13.5 (10-20) RATIO Glucose 92 (74-106) mg/dL Calcium 7.5 L (8.5-10.1) mg/dL Total Bilirubin (0.20-1.00) mg/dL Direct Bilirubin (0.00-0.30) mg/dL AST (15-37) U/L ALT (16-61) U/L Alkaline Phosphatase (45-117) U/L Troponin I (<0.045) ng/mL Total Protein (6.4-8.2) g/dL Albumin (3.2-5.0) g/dL Globulin (2.2-4.2) g/dL Vitamin D 25-Hydroxy (29.95-100.01) ng/mL Blood Type Antibody Screen Crossmatch 08/05/19 08/05/19 08/05/19 Range/Units 13:51 13:51 13:51 WBC (4.4-11.0) K/mm3 RBC (4.6-6.2) M/mm3 Hgb (13.0-16.5) g/dL Hct (40-54) % MCV (80-94) fL MCH (27.0-32.0) pg MCHC (32-36) g/dL RDW Std Deviation (35.1-43.9) fl RDW Coeff of Christ (11.6-14.6) % Plt Count (150-450) K/mm3 MPV (6.2-12.0) fl Immature Gran % (Auto) (0.0-0.9) % Neut % (Auto) (47-70) % Lymph % (Auto) (19-41) % [place] % (Auto) (0-10) % Eos % (Auto) (0-5) % Baso % (Auto) (0-1) % Absolute Neuts (auto) (2.0-7.7) X10^3/uL Absolute Lymphs (auto) (0.83-4.51) X10^3/uL Nucleated RBC % (0-5) % Differential Comment Diff Path Review Platelet Estimate (ADEQ) Hypochromasia Anisocytosis PT (11.7-14.9) SECONDS INR APTT (24.1-36.2) Seconds Sodium 138 (136-145) mmol/L Potassium 3.8 (3.5-5.1) mmol/L Chloride 108 H (98-107) mmol/L Carbon Dioxide 26.0 (21.0-32.0) mmol/L Anion Gap 4 L (5-15) BUN 11 (7-18) mg/dL Creatinine 0.75 (0.70-1.30) mg/dL Estim Creat Clear Calc 92.16 ml/min Est GFR (MDRD) Af Amer 135 (>60) mL/min Est GFR (MDRD) Non-Af 112 (>60) mL/min BUN/Creatinine Ratio 14.6 (10-20) RATIO Glucose 99 (74-106) mg/dL Calcium 8.6 (8.5-10.1) mg/dL Total Bilirubin (0.20-1.00) mg/dL Direct Bilirubin (0.00-0.30) mg/dL AST (15-37) U/L ALT (16-61) U/L Alkaline Phosphatase (45-117) U/L Troponin I < 0.015 (<0.045) ng/mL Total Protein (6.4-8.2) g/dL Albumin (3.2-5.0) g/dL Globulin (2.2-4.2) g/dL Vitamin D 25-Hydroxy (29.95-100.01) ng/mL Blood Type O POSITIVE Antibody Screen NEGATIVE Crossmatch See Detail See Detail 08/05/19 08/05/19 Range/Units 13:51 13:51 WBC 11.6 H (4.4-11.0) K/mm3 RBC 2.10 L (4.6-6.2) M/mm3 Hgb 4.5 L* (13.0-16.5) g/dL Hct 16.0 L (40-54) % MCV 76.2 L (80-94) fL MCH 21.4 L (27.0-32.0) pg MCHC 28.1 L (32-36) g/dL RDW Std Deviation 67.3 H (35.1-43.9) fl RDW Coeff of Christ 24.3 H (11.6-14.6) % Plt Count 553 H (150-450) K/mm3 MPV 8.5 (6.2-12.0) fl Immature Gran % (Auto) 0.500 (0.0-0.9) % Neut % (Auto) 77.4 H (47-70) % Lymph % (Auto) 14.5 L (19-41) % [place] % (Auto) 6.3 (0-10) % Eos % (Auto) 1.0 (0-5) % Baso % (Auto) 0.3 (0-1) % Absolute Neuts (auto) 8.9 H (2.0-7.7) X10^3/uL Absolute Lymphs (auto) 1.68 (0.83-4.51) X10^3/uL Nucleated RBC % 0.5 (0-5) % Differential Comment Diff Path Review Reviewed Platelet Estimate SLT INC (ADEQ) Hypochromasia 3+ Anisocytosis 2+ PT 13.5 (11.7-14.9) SECONDS INR 1.1 APTT 26.1 (24.1-36.2) Seconds Sodium (136-145) mmol/L Potassium (3.5-5.1) mmol/L Chloride (98-107) mmol/L Carbon Dioxide (21.0-32.0) mmol/L Anion Gap (5-15) BUN (7-18) mg/dL Creatinine (0.70-1.30) mg/dL Estim Creat Clear Calc ml/min Est GFR (MDRD) Af Amer (>60) mL/min Est GFR (MDRD) Non-Af (>60) mL/min BUN/Creatinine Ratio (10-20) RATIO Glucose (74-106) mg/dL Calcium (8.5-10.1) mg/dL Total Bilirubin (0.20-1.00) mg/dL Direct Bilirubin (0.00-0.30) mg/dL AST (15-37) U/L ALT (16-61) U/L Alkaline Phosphatase (45-117) U/L Troponin I (<0.045) ng/mL Total Protein (6.4-8.2) g/dL Albumin (3.2-5.0) g/dL Globulin (2.2-4.2) g/dL Vitamin D 25-Hydroxy (29.95-100.01) ng/mL Blood Type Antibody Screen Crossmatch Dr. Romeo Waite-[place] [facility] Dr. 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 He denied nausea, vomiting, abdominal pain but did admit to black stools for 3 days. Hemoglobin in the emergency department was 4.5 with an MCV of 76.2. Platelets were increased at 553,000. He was admitted to the intensive care unit and transfused with 2 units of packed red blood cells. Stool was Hemoccult negative. Dr. Waite was consulted for possible endoscopy. Dr. Waite did not feel he was currently bleeding and elected to monitor the HH over the next 24-48 hours and if it remained stable he would be scheduled for an OP endoscopy the following Saturday. He denied chest pain, lightheadedness but did c/o mild VALLE. He was transfused with 3 units of packed red blood cells and hemoglobin increased from 4.5 at admission to 8.0 at the time of discharge. Vital signs at discharge were temperature 98.3, pulse rate 71, blood pressure 133/76, respiratory rate 16 and he was 98% saturated on room air. He was ambulated in the intensive care unit and was stable with no lightheadedness, tachycardia, chest pain or shortness of breath. He was seen by the dietitian while in the hospital and instructed in a diet high in iron. He was given a prescription for ferrous sulfate 325 mg and instructed to take 1 tablet twice daily with meals. He will additionally take vitamin C 500 mg twice daily with the ferrous sulfate to promote better absorption. He was given a prescription for vitamin D because his vitamin D level was low and he was also given a prescription for pantoprazole 40 mg twice daily. He will follow-up with Dr. Waite for endoscopy on 08/11/[address] Waite's office will call him with instructions regarding the prep. He will follow-up with Dr. Williamson as previously arranged. Prior to DC he was given a list of local PCP's accepting new patients. - Physical Exam General: Alert, Oriented x3, Cooperative, No apparent distress HEENT: Atraumatic, Normocephalic Oral: Moist Mucosa Neck: Supple, No JVD, Negative Carotid Bruits, Trachea Midline Lungs: Clear to auscultation, Diminished Cardiovascular: Regular rate, Regular Rhythm, Normal S1, Normal S2, Murmur - soft systolic MM at the apex and also with a systolic MM in the left axilla, No Gallop Abdomen: Bowel Sounds Present - not hyperactive, Soft, Non Tender, Non-Distended Extremities: No clubbing, No cyanosis, No edema, No Calf Tenderness, Peripheral Pulses Normal Skin: No rashes, No breakdown Neurological: Cranial nerves II-XII grossly intact, Neuro grossly intact Psych/Mental Status: Normal Affect, Appropriate This note was generated with [employer] software. It may contain incorrect words, spelling, and punctuation that were not noted in checking the note before signing. - Physical Exam Vital Signs Temp Pulse Resp BP Pulse Ox 98.6 F 77 18 130/81 H 98 08/06/19 08:17 08/06/19 11:00 08/06/19 10:15 08/06/19 10:15 08/06/19 10:15 Oxygen Flow Rate (L/min) 2 Oxygen Delivery Method Room Air Weight: 137 lb 2.04 oz Body Mass Index (BMI) 21.8 Orthostatic Vital Signs Start: 08/06/19 07:04 Freq: q24h Status: Active Protocol: Activity Type Activity Date Activity User E-Sign Co-Sign Detail Recorded Client Recorded Date Recorded By Document 08/06/19 07:04 [facility] [id number] 08/06/19 07:05 [facility] 08/06/19 07:04 Orthostatic Vitals Standing -Blood Pressure (90/60-120/80 mm Hg) 139/96 H -Extremity Use Right Arm -Pulse Rate (60-100 beats/min) 86 Sitting -Blood Pressure (90/60-120/80 mm Hg) 113/74 -Extremity Use Right Arm -Pulse Rate (60-100 beats/min) 78 Lying -Blood Pressure (90/60-120/80 mm Hg) 123/71 H -Extremity Use Right Arm -Pulse Rate (60-100 beats/min) 75 Intake and Output for Last 24 Hours 08/04/19 08/05/19 08/06/19 23:59 23:59 23:59 Intake Total 1262.08 / 1786.25 3328.75 / 3328.75 Output Total 425 / 1450 2425 / 2425 Balance 837.08 / 336.25 903.75 / 903.75 Microbiology Past 72 Hours 08/05/19 14:00 Stool Occult Blood (JULITA) - Final Stool Laboratory Tests Past 24 Hrs 08/05/19 08/05/19 08/05/19 13:51 13:51 13:51 WBC 11.6 H RBC 2.10 L Hgb 4.5 L* Hct 16.0 L MCV 76.2 L MCH 21.4 L MCHC 28.1 L RDW Std Deviation 67.3 H RDW Coeff of Christ 24.3 H Plt Count 553 H MPV 8.5 Immature Gran % (Auto) 0.500 Neut % (Auto) 77.4 H Lymph % (Auto) 14.5 L [place] % (Auto) 6.3 Eos % (Auto) 1.0 Baso % (Auto) 0.3 Absolute Neuts (auto) 8.9 H Absolute Lymphs (auto) 1.68 Nucleated RBC % 0.5 Differential Comment Diff Path Review Reviewed Platelet Estimate SLT INC Hypochromasia 3+ Anisocytosis 2+ PT 13.5 INR 1.1 APTT 26.1 Sodium 138 Potassium 3.8 Chloride 108 H Carbon Dioxide 26.0 Anion Gap 4 L BUN 11 Creatinine 0.75 Estim Creat Clear Calc 92.16 Est GFR (MDRD) Af Amer 135 Est GFR (MDRD) Non-Af 112 BUN/Creatinine Ratio 14.6 Glucose 99 Calcium 8.6 Total Bilirubin Direct Bilirubin AST ALT Alkaline Phosphatase Troponin I < 0.015 Total Protein Albumin Globulin Vitamin D 25-Hydroxy Vit D 1,25-Dihydroxy Blood Type Antibody Screen Crossmatch 08/05/19 08/05/19 08/05/19 13:51 13:51 21:25 WBC RBC Hgb 6.5 L Hct 21.3 L MCV MCH MCHC RDW Std Deviation RDW Coeff of Christ Plt Count MPV Immature Gran % (Auto) Neut % (Auto) Lymph % (Auto) [place] % (Auto) Eos % (Auto) Baso % (Auto) Absolute Neuts (auto) Absolute Lymphs (auto) Nucleated RBC % Differential Comment Diff Path Review Platelet Estimate Hypochromasia Anisocytosis PT INR APTT Sodium Potassium Chloride Carbon Dioxide Anion Gap BUN Creatinine Estim Creat Clear Calc Est GFR (MDRD) Af Amer Est GFR (MDRD) Non-Af BUN/Creatinine Ratio Glucose Calcium Total Bilirubin Direct Bilirubin AST ALT Alkaline Phosphatase Troponin I Total Protein Albumin Globulin Vitamin D 25-Hydroxy Vit D 1,25-Dihydroxy Blood Type O POSITIVE Antibody Screen NEGATIVE Crossmatch See Detail See Detail 08/06/19 08/06/19 08/06/19 03:45 03:45 03:45 WBC 7.8 RBC 2.74 L Hgb 6.5 L Hct 21.5 L MCV 78.5 L MCH 23.7 L MCHC 30.2 L RDW Std Deviation 60.7 H RDW Coeff of Christ 21.4 H Plt Count 456 H MPV 8.5 Immature Gran % (Auto) 0.400 Neut % (Auto) 63.3 Lymph % (Auto) 24.6 [place] % (Auto) 8.1 Eos % (Auto) 2.8 Baso % (Auto) 0.8 Absolute Neuts (auto) 4.9 Absolute Lymphs (auto) 1.92 Nucleated RBC % 0.8 Differential Comment SCANNED Diff Path Review Platelet Estimate Hypochromasia Anisocytosis 2+ PT INR APTT Sodium 146 H Potassium 4.0 Chloride 113 H Carbon Dioxide 26.0 Anion Gap 7 BUN 10 Creatinine 0.74 Estim Creat Clear Calc 91.06 Est GFR (MDRD) Af Amer 138 Est GFR (MDRD) Non-Af 114 BUN/Creatinine Ratio 13.5 Glucose 92 Calcium 7.5 L Total Bilirubin 0.70 Direct Bilirubin 0.15 AST 20 ALT 29 Alkaline Phosphatase 36 L Troponin I Total Protein 5.5 L Albumin 3.1 L Globulin 2.4 Vitamin D 25-Hydroxy Vit D 1,25-Dihydroxy Blood Type Antibody Screen Crossmatch 08/06/19 08/06/19 08/06/19 11:55 11:55 11:55 WBC RBC Hgb 8.0 L Hct 25.2 L MCV MCH MCHC RDW Std Deviation RDW Coeff of Christ Plt Count MPV Immature Gran % (Auto) Neut % (Auto) Lymph % (Auto) [place] % (Auto) Eos % (Auto) Baso % (Auto) Absolute Neuts (auto) Absolute Lymphs (auto) Nucleated RBC % Differential Comment Diff Path Review Platelet Estimate Hypochromasia Anisocytosis PT INR APTT Sodium Potassium Chloride Carbon Dioxide Anion Gap BUN Creatinine Estim Creat Clear Calc Est GFR (MDRD) Af Amer Est GFR (MDRD) Non-Af BUN/Creatinine Ratio Glucose Calcium Total Bilirubin Direct Bilirubin AST ALT Alkaline Phosphatase Troponin I Total Protein Albumin Globulin Vitamin D 25-Hydroxy 27.0 L Vit D 1,25-Dihydroxy Pending Blood Type Antibody Screen Crossmatch Discharge Activity: - - You are still anemia but out of the danger zone. You may be more short of breath with exertion than you were when you were not anemic and you may tire more easily. Call your doctor if you observe: Fever of 101 or Higher, Shortness of breath, Dizziness, Fainting spells, Chest pain Home Medications: Medications to take at Discharge Folic Acid 2 mg PO DAILY@0800 02/17/18 Acetaminophen [Tylenol Arthritis] 1,300 mg PO Q12H 08/05/19 Multivit-Min/FA/Lycopen/Lutein [Centrum Silver Men Tablet] 1 tab PO DAILY 08/05/19 Prednisone 10 mg PO DAILY PRN PRN 08/05/19 Pregabalin 200 mg PO BID 08/05/19 Ascorbic Acid [Vitamin C] 500 mg PO BIDCM #60 tab 08/06/19 Cholecalciferol (Vitamin D3) [Vitamin D3] 1,000 unit PO BID #60 cap 08/06/19 Ferrous Sulfate 325 mg PO BIDCM #60 tab 08/06/19 Methotrexate 20 mg PO TU #0 08/06/19 Pantoprazole Sodium [Protonix] 40 mg PO BID #60 tab 08/06/19 Following Prescrptions Were Given to Patient: Ferrous Sulfate 325 mg PO BIDCM #60 tab Transmission Status: Received by [id number] Pantoprazole Sodium [Protonix] 40 mg PO BID #60 tab Transmission Status: Received by [id number] Ascorbic Acid [Vitamin C] 500 mg PO BIDCM #60 tab Transmission Status: Received by [id number] Cholecalciferol (Vitamin D3) [Vitamin D3] 1,000 unit PO BID #60 cap Transmission Status: Received by [id number] Primary Care Physician: Care Physician,No Primary [Primary Care Provider] - Please Follow Up With: Romeo Waite MD When: doctor Mariann's office will call you with instructions about the endoscopy Please Follow Up With: Nancy Williamson MD When: as previously arranged Patient Instructions: Iron Supplements Disposition: Home Minutes spent on discharge:: 30 Patient Condition:: Stable Medical Necessity - Tobacco Use Smoking Status: Former smoker Tobacco Use: Chew, - - marijuana daily Meaningful Use Info Meaningful Use Diagnoses (Choose all that apply): None applicable Code Visit Inpatient E&M: 92902 Disch Hosp
[2019-08-10 17:36] LABS: Vitamin D 1,25-Dihydroxy 15.2 pg/mL (19.9-79.3)
== END 2019-08-06 14:40 | disposition home or self-care (01) | DRG 378 ==
LOC: ED 13:30 → ICU 15:30
PROVIDERS: Internal Medicine Critical Care Medicine; Admitting Provider Family Medicine; Emergency Provider Emergency Medicine; Referring Provider Family Medicine; Visit Provider Internal Medicine
DX: K92.2 Gastrointestinal hemorrhage, unspecified (principal); E87.0 Hyperosmolality and hypernatremia; D62 Acute posthemorrhagic anemia; D50.0 Iron deficiency anemia secondary to blood loss (chronic); M06.9 Rheumatoid arthritis, unspecified; I10 Essential (primary) hypertension; E55.9 Vitamin D deficiency, unspecified; M19.90 Unspecified osteoarthritis, unspecified site; M54.9 Dorsalgia, unspecified; G89.29 Other chronic pain; K21.9 Gastro-esophageal reflux disease without esophagitis; Z79.82 Long term (current) use of aspirin; Z79.52 Long term (current) use of systemic steroids; Z79.899 Other long term (current) drug therapy; F17.220 Nicotine dependence, chewing tobacco, uncomplicated; Z96.641 Presence of right artificial hip joint; Z87.11 Personal history of peptic ulcer disease
CPT/HCPCS: 80048; 80076; 82274; 82306; 82652; 84484; 85014; 85018; 85025; 85610; 85730; 86850; 86900; 86901; 86920; 86922; 93005; 97802; 99285; J1756; J7030; J7040; P9016; A4216

== ENCOUNTER 2019-08-11 06:00 | Day surgery (SDC) | payer OTHER, SELFPAY ==
[2019-08-05 16:27] VITALS: BMI 22.8
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
[2019-08-11 06:19] VITALS: BP 127/78; PULSE 63; RESP 14; TEMP 37.1; O2SAT 98; BMI 22.6
[2019-08-11 06:31] LABS: Hematocrit 32.3 % (40-54); Hemoglobin 9.6 g/dL (13.0-16.5); Mean Corp Hgb Conc 29.7 g/dL (32-36); Mean Corpuscular Hgb 24.7 pg (27.0-32.0); Mean Platelet Vol. 8.1 fl (6.2-12.0); POSITIVE MORPHOLOGY YES; Platelet Count 522 K/mm3 (150-450); RBC Distribution Width CV 24.8 % (11.6-14.6); RBC Distribution Width SD 69.9 fl (35.1-43.9); Red Blood Count 3.89 M/mm3 (4.6-6.2); White Blood Count 9.5 K/mm3 (4.4-11.0)
[2019-08-11 06:33] LABS: Scan Indicated on CBC? Y/N YES- FLAGS NOTED
[2019-08-11 07:08] LABS: Differential Comment SCANNED
[2019-08-11] MEDS: Lactated Ringers 1,000 ML 100 ML IV (07:14)
--- NOTE | 2019-08-11 07:30 | EGD_PTH ---
PATIENT: HEATH GUTIERREZ LOC: EN U#:[id number] AGE/SX: 63/M ROOM: RE08/11/[address]: Dr. Romeo Waite MD : 1955 BED: DIS: 08/11/2019 SPEC #: [id number] RECD: 08/11/19 13:39 STATUS: JOSE FRANCISCO #: [id number] HAKEEM: 08/11/19 07:[address]: Romeo Waite DEPT: SURGICAL PATHOLOGY RECD BY: Josh Burden ENTERED: 08/11/19 13:52 SP TYPE: EGD BIOPSY OT DR: Lala Primary Care Phys Tissues: A - Gastric mucous membrane B - Esophageal mucous membrane Procedures: Special Stain Group II Surgery Specimen Level IV Alcian Blue/PAS (control) HEADER OPERATION: Colonoscopy, EGD ([facility]) PRE-OP DIAGNOSIS: GI bleed, anemia TISSUE SUBMITTED: A - Antrum biopsy for H. pylori and path, B - Distal esophagus biopsy MICROSCOPIC DIAGNOSIS A. Gastric antrum, biopsy: Moderate chronic gastritis. See comment. B. Distal esophagus, biopsy: Gastroesophageal junction mucosa with mild chronic inflammation and intestinal metaplasia consistent with Morrison's esophagus. No evidence of dysplasia. See comment. AM:brandi 08/12/19 COMMENT A. The results of immunohistochemistry for Helicobacter pylori will be reported separately ([id number]). B. Immunohistochemistry ([id number]) supports the above diagnosis. Alcian blue/PAS stain with matched control supports the above diagnosis. MICROSCOPIC DESCRIPTION Slides are reviewed. GROSS DESCRIPTION A - Received in fixative is one container labeled with the patient's name and designated antrum biopsy. The specimen consists of one irregular fragment of light hedrick soft tissue that measures 0.6 x 0.3 x 0.1 cm. The specimen is totally submitted in one cassette. B - Received in fixative is one container labeled with the patient's name and designated esophagus biopsy. The specimen consists of multiple irregular fragments of light hedrick soft tissue that in aggregate measure 1.5 x 1 x 0.1 cm. The specimen is totally submitted in one cassette. / AM:brandi 08/11/19 TC: CPT: 12692 x2, 25555
--- NOTE | 2019-08-11 07:30 | IMM_PTH ---
PATIENT: HEATH GUTIERREZ LOC: EN U#:[id number] AGE/SX: 63/M ROOM: RE08/11/[address]: Dr. Romeo Waite MD : 1955 BED: DIS: 08/11/2019 SPEC #: [id number] RECD: 08/11/19 15:13 STATUS: JOSE FRANCISCO #: [id number] HAKEEM: 08/11/19 07:[address]: Romeo Waite DEPT: IMMUNOHISTOCHEMISTRY RECD BY: Hortensia Miner ENTERED: 08/11/19 15:13 SP TYPE: IMMUNO OTHR DR: No Primary Care Phys Tissues: A - Stomach, NOS B - Esophagus, NOS Procedures: H Pylori (initial) P53 (initial) PHYSICIAN & [place] [address] SPECIMEN INFORMATION: Tissue Source: A - Antrum biopsy, B -Distal esophagus biopsy Clinical Info: GI bleed, anemia Specimen Number: [id number] A & B CPT code: 83674 x2 METHODOLOGY: Deparaffinized sections of prefer/formalin-fixed tissue or PAP/DQ stained slides are incubated with monoclonal/polyclonal antibodies/oligonucleotide probes. Localization is made via biotin free immunoperoxidase method. Appropriate controls are performed and reacted as expected. Results on target cell population are indicated in the following table: RESULTS: ANTIBODY / CLONE RESULT Block A H Pylori (polyclonal) negative Block B P53 (DO-7) negative These tests were developed and their performance characteristics determined by [facility]. They may not have been cleared or approved by the U.S. Food and Drug Administration. The FDA has determined that such clearance or approval is not necessary. The above (block B) immunohistochemical/dualISH markers are ordered and reviewed by the pathologist. INTERPRETATION: A. Antrum biopsy: Negative for Helicobacter pylori organisms. B. Distal esophagus, biopsy: No evidence of dysplasia. AM:brandi 08/13/19
--- NOTE | 2019-08-11 07:48 | OP.ENDO_ITS ---
08/11/2019 No Primary Care Physician Re : Upper GI endoscopy procedure for Addison Capone Dear Care Physician This procedure was performed on Sunday, August 11, 2019. My impressions and recommendations are as follows: Impressions : - LA Grade A reflux esophagitis. Rule out Morrison's esophagus. Biopsied. - Medium-sized hiatal hernia. - Erythematous mucosa in the antrum. Biopsied. - Normal examined duodenum. Recommendations : - Await pathology results. - Discharge patient to home. - Resume previous diet. - Continue present medications. - Telephone my office for pathology results in 1 week. No active bleeding identified. Findings do not support a large volume GI bleed My findings are described in the full procedure note, which is enclosed. If I can be of further assistance, please feel free to contact me at Doctor phone number(s): Work: . Sincerely, Romeo Waite MD 08/11/2019 7:48:34 AM This report has been signed electronically.
[2019-08-11 07:49] VITALS: BP 127/78; BP 97/73; PULSE 58; RESP 16; TEMP 37; O2SAT 100
--- NOTE | 2019-08-11 07:51 | OP.ENDO_ITS ---
08/11/2019 No Primary Care Physician Re : [facility] This procedure was performed on Sunday, August 11, 2019. My impressions and recommendations are as follows: Impressions : - Hemorrhoids found on perianal exam. - Diverticulosis in the sigmoid colon and in the descending colon. - The examination was otherwise normal. - No specimens collected. Recommendations : - Discharge patient to home. - Resume previous diet. - Continue present medications. - Repeat colonoscopy in 10 years for screening purposes. Follow up with your primary care provider and bucket turner as your suspected GI blood loss anemia is improving but you require ongoing medical care and followup My findings are described in the full procedure note, which is enclosed. If I can be of further assistance, please feel free to contact me at Doctor phone number(s): Work: . Sincerely, Romeo Waite MD 08/11/2019 7:51:33 AM This report has been signed electronically.
[2019-08-11 07:55] VITALS: BP 101/72; BP 127/78; PULSE 66; RESP 16; O2SAT 100
[2019-08-11 08:00] VITALS: BP 111/75; BP 127/78; PULSE 54; RESP 16; O2SAT 99
[2019-08-11 08:04] VITALS: BP 113/77; BP 127/78; PULSE 53; RESP 16; TEMP 36.4; O2SAT 100
[2019-08-11 08:19] VITALS: BP 127/78
== END 2019-08-11 08:40 | disposition home or self-care (01) ==
LOC: EN 06:01 → AC 06:03
PROVIDERS: Referring Provider Surgery; Visit Provider Surgery
PROC: 0DJD8ZZ Inspection of Lower Intestinal Tract, Via Natural or Artificial Opening Endoscopic (ICD-10-PCS; CPT 45378; principal; 2019-08-11 07:25)
DX: D62 Acute posthemorrhagic anemia (principal); K21.0 Gastro-esophageal reflux disease with esophagitis; K57.30 Diverticulosis of large intestine without perforation or abscess without bleeding; K44.9 Diaphragmatic hernia without obstruction or gangrene; K64.9 Unspecified hemorrhoids; K31.89 Other diseases of stomach and duodenum; M06.9 Rheumatoid arthritis, unspecified; I10 Essential (primary) hypertension; F17.220 Nicotine dependence, chewing tobacco, uncomplicated; Z79.82 Long term (current) use of aspirin; Z79.52 Long term (current) use of systemic steroids; Z79.899 Other long term (current) drug therapy; Z87.11 Personal history of peptic ulcer disease; Z96.641 Presence of right artificial hip joint
CPT/HCPCS: 43239; 45378; 36415; 85027; 88305; 88313; 88342; J7120; J2405

== ENCOUNTER → 2019-08-12 07:47 | Outpatient (CLI) | payer OTHER, SELFPAY ==
[2019-08-11 06:19] VITALS: BMI 22.6
[2019-08-12 10:14] LABS: Absolute Neutrophil Count 8.1 X10^3/uL (2.0-7.7); Basophil# 0.06 X10^3/uL; Basophil% 0.6 % (0-1); Eosinophil# 0.22 X10^3/uL; Eosinophils% 2.1 % (0-5); Hematocrit 31.3 % (40-54); Hemoglobin 9.3 g/dL (13.0-16.5); Lymphocyte % 11.4 % (19-41); Mean Corp Hgb Conc 29.7 g/dL (32-36); Mean Corpuscular Hgb 24.8 pg (27.0-32.0); Mean Corpuscular Volume 83.5 fL (80-94); Mean Platelet Vol. 8.3 fl (6.2-12.0); Monocyte# 0.87 X10^3/uL; Monocyte% 8.3 % (0-10); NRBC Flagged by Analyzer 0 % (0-5); POSITIVE MORPHOLOGY YES; Platelet Count 503 K/mm3 (150-450); RBC Distribution Width CV 24.8 % (11.6-14.6); RBC Distribution Width SD 72.7 fl (35.1-43.9); Red Blood Count 3.75 M/mm3 (4.6-6.2); White Blood Count 10.5 K/mm3 (4.4-11.0)
[2019-08-12 10:17] LABS: Differential Indicated SCAN CRITERIA MET
== END ==
PROVIDERS: Surgery; Referring Provider Internal Medicine Rheumatology; Visit Provider Internal Medicine Rheumatology
DX: Z01.818 Encounter for other preprocedural examination (principal); M06.4 Inflammatory polyarthropathy; I10 Essential (primary) hypertension; F41.9 Anxiety disorder, unspecified; Z79.899 Other long term (current) drug therapy
CPT/HCPCS: 36415; 85025

== ENCOUNTER → 2019-09-11 09:00 | Outpatient (CLI) | payer OTHER, SELFPAY ==
[2019-09-11 10:06] LABS: Hematocrit 44.8 % (40-54); Hemoglobin 13.6 g/dL (13.0-16.5); Mean Corp Hgb Conc 30.4 g/dL (32-36); Mean Corpuscular Hgb 26.6 pg (27.0-32.0); Mean Corpuscular Volume 87.5 fL (80-94); Mean Platelet Vol. 8.7 fl (6.2-12.0); POSITIVE MORPHOLOGY YES; Platelet Count 403 K/mm3 (150-450); RBC Distribution Width CV 23.7 % (11.6-14.6); RBC Distribution Width SD 75.6 fl (35.1-43.9); Red Blood Count 5.12 M/mm3 (4.6-6.2); White Blood Count 9.3 K/mm3 (4.4-11.0)
[2019-09-11 10:18] LABS: Scan Indicated on CBC? Y/N YES- FLAGS NOTED
== END ==
PROVIDERS: Referring Provider Surgery; Visit Provider Surgery
DX: D64.9 Anemia, unspecified (principal)
CPT/HCPCS: 36415; 85027

== ENCOUNTER → 2019-11-02 11:08 | Outpatient (CLI) | payer OTHER, SELFPAY ==
[2019-11-02 12:24] LABS: Absolute Neutrophil Count 5.9 X10^3/uL (2.0-7.7); Basophil# 0.05 X10^3/uL; Basophil% 0.6 % (0-1); Eosinophil# 0.21 X10^3/uL; Eosinophils% 2.4 % (0-5); Hematocrit 43.5 % (40-54); Hemoglobin 13.8 g/dL (13.0-16.5); Lymphocyte % 20.7 % (19-41); Mean Corp Hgb Conc 31.7 g/dL (32-36); Mean Corpuscular Hgb 28.2 pg (27.0-32.0); Mean Platelet Vol. 8.4 fl (6.2-12.0); Monocyte# 0.71 X10^3/uL; Monocyte% 8.2 % (0-10); NRBC Flagged by Analyzer 0 % (0-5); Neutrophil # 5.92 X10^3/uL (2.7-7.7); Neutrophil % 67.9 % (47-70); Platelet Count 404 K/mm3 (150-450); RBC Distribution Width CV 18.2 % (11.6-14.6); RBC Distribution Width SD 56.5 fl (35.1-43.9); Red Blood Count 4.89 M/mm3 (4.6-6.2); White Blood Count 8.7 K/mm3 (4.4-11.0)
[2019-11-02 12:48] LABS: ALB/GLOB Ratio 1.2 RATIO (0.9-2.4); AST(SGOT) 24 U/L (15-37); Alanine Aminotransfer ALT/SGPT 42 U/L (16-61); Albumin, Serum 4.1 g/dL (3.2-5.0); Alkaline Phosphatase 57 U/L (45-117); Anion Gap 3 (5-15); BUN 15 mg/dL (7-18); BUN/Creat Ratio 17.3 RATIO (10-20); Calcium,Total 9.1 mg/dL (8.5-10.1); Chloride 107 mmol/L (98-107); Creatinine, Serum 0.87 mg/dL (0.70-1.30); EST Glomerular Filtration Rate 94 mL/min (>60); Est Glom Filt Rate - Afr Amer 114 mL/min (>60); Globulin 3.3 g/dL (2.2-4.2); Glucose 118 mg/dL (74-106); Potassium 4.5 mmol/L (3.5-5.1); Protein, Total 7.4 g/dL (6.4-8.2); Sodium Level 137 mmol/L (136-145)
== END ==
PROVIDERS: Referring Provider Internal Medicine Rheumatology; Visit Provider Internal Medicine Rheumatology
DX: M06.4 Inflammatory polyarthropathy (principal); I10 Essential (primary) hypertension; F41.9 Anxiety disorder, unspecified; Z79.899 Other long term (current) drug therapy
CPT/HCPCS: 36415; 80053; 85025

== ENCOUNTER → 2020-03-03 13:19 | Outpatient (CLI) | payer OTHER, SELFPAY ==
[2020-03-03 15:22] LABS: Basophil# 0.03 X10^3/uL; Basophil% 0.3 % (0-1); Hematocrit 41.4 % (40-54); Hemoglobin 13.3 g/dL (13.0-16.5); Lymphocyte % 7.9 % (19-41); Mean Corp Hgb Conc 32.1 g/dL (32-36); Mean Corpuscular Hgb 31.4 pg (27.0-32.0); Mean Corpuscular Volume 97.9 fL (80-94); Mean Platelet Vol. 8.6 fl (6.2-12.0); Monocyte# 0.32 X10^3/uL; Monocyte% 3.1 % (0-10); NRBC Flagged by Analyzer 0 % (0-5); Neutrophil # 8.98 X10^3/uL (2.7-7.7); Neutrophil % 88.2 % (47-70); Platelet Count 452 K/mm3 (150-450); RBC Distribution Width CV 13.7 % (11.6-14.6); RBC Distribution Width SD 49.1 fl (35.1-43.9); Red Blood Count 4.23 M/mm3 (4.6-6.2); White Blood Count 10.2 K/mm3 (4.4-11.0)
[2020-03-03 15:45] LABS: ALB/GLOB Ratio 1.2 RATIO (0.9-2.4); AST(SGOT) 26 U/L (15-37); Alanine Aminotransfer ALT/SGPT 50 U/L (16-61); Albumin, Serum 4.1 g/dL (3.2-5.0); Alkaline Phosphatase 58 U/L (45-117); Anion Gap 7 (5-15); BUN 11 mg/dL (7-18); BUN/Creat Ratio 13.9 RATIO (10-20); Chloride 106 mmol/L (98-107); Creatinine, Serum 0.79 mg/dL (0.70-1.30); EST Glomerular Filtration Rate 105 mL/min (>60); Est Glom Filt Rate - Afr Amer 127 mL/min (>60); Globulin 3.5 g/dL (2.2-4.2); Glucose 111 mg/dL (74-106); Potassium 4.2 mmol/L (3.5-5.1); Protein, Total 7.6 g/dL (6.4-8.2); Sodium Level 136 mmol/L (136-145)
== END ==
PROVIDERS: Referring Provider Internal Medicine Rheumatology; Visit Provider Internal Medicine Rheumatology
DX: M06.4 Inflammatory polyarthropathy (principal); I10 Essential (primary) hypertension; F41.9 Anxiety disorder, unspecified; Z79.899 Other long term (current) drug therapy
CPT/HCPCS: 36415; 80053; 85025

== ENCOUNTER → 2020-05-30 10:19 | Outpatient (CLI) | payer OTHER, SELFPAY ==
[2020-05-30 12:12] LABS: Absolute Lymphocyte Count 1.81 X10^3/uL (0.83-4.51); Absolute Neutrophil Count 8.5 X10^3/uL (2.0-7.7); Basophil# 0.06 X10^3/uL; Basophil% 0.5 % (0-1); Eosinophil# 0.29 X10^3/uL; Eosinophils% 2.5 % (0-5); Hematocrit 42.8 % (40-54); Hemoglobin 13.8 g/dL (13.0-16.5); Lymphocyte # 1.81 X10^3/ul (4.0); Lymphocyte % 15.7 % (19-41); Mean Corp Hgb Conc 32.2 g/dL (32-36); Mean Corpuscular Hgb 31.5 pg (27.0-32.0); Mean Corpuscular Volume 97.7 fL (80-94); Mean Platelet Vol. 8.6 fl (6.2-12.0); Monocyte# 0.86 X10^3/uL; Monocyte% 7.5 % (0-10); NRBC Flagged by Analyzer 0 % (0-5); Neutrophil # 8.45 X10^3/uL (2.7-7.7); Neutrophil % 73.5 % (47-70); Platelet Count 470 K/mm3 (150-450); RBC Distribution Width CV 13.9 % (11.6-14.6); RBC Distribution Width SD 49.6 fl (35.1-43.9); Red Blood Count 4.38 M/mm3 (4.6-6.2); White Blood Count 11.5 K/mm3 (4.4-11.0)
[2020-05-30 12:35] LABS: ALB/GLOB Ratio 1.3 RATIO (0.9-2.4); AST(SGOT) 23 U/L (15-37); Alanine Aminotransfer ALT/SGPT 42 U/L (16-61); Albumin, Serum 3.9 g/dL (3.2-5.0); Alkaline Phosphatase 53 U/L (45-117); Anion Gap 4 (5-15); BUN 13 mg/dL (7-18); BUN/Creat Ratio 17.1 RATIO (10-20); Calcium,Total 8.7 mg/dL (8.5-10.1); Chloride 110 mmol/L (98-107); Creatinine, Serum 0.76 mg/dL (0.70-1.30); EST Glomerular Filtration Rate 110 mL/min (>60); Est Glom Filt Rate - Afr Amer 133 mL/min (>60); Globulin 3.1 g/dL (2.2-4.2); Glucose 116 mg/dL (74-106); Sodium Level 143 mmol/L (136-145)
== END ==
PROVIDERS: Referring Provider Internal Medicine Rheumatology; Visit Provider Internal Medicine Rheumatology
DX: M06.4 Inflammatory polyarthropathy (principal); I10 Essential (primary) hypertension; F41.9 Anxiety disorder, unspecified; Z79.899 Other long term (current) drug therapy
CPT/HCPCS: 36415; 80053; 85025

== ENCOUNTER → 2020-08-15 08:02 | Outpatient (CLI) | payer OTHER, SELFPAY ==
[2020-08-15 09:49] LABS: Absolute Lymphocyte Count 1.91 X10^3/uL (0.83-4.51); Absolute Neutrophil Count 7.1 X10^3/uL (2.0-7.7); Basophil# 0.06 X10^3/uL; Basophil% 0.6 % (0-1); Eosinophil# 0.27 X10^3/uL; Eosinophils% 2.7 % (0-5); Hematocrit 42.9 % (40-54); Hemoglobin 13.6 g/dL (13.0-16.5); Lymphocyte # 1.91 X10^3/ul (4.0); Lymphocyte % 18.8 % (19-41); Mean Corp Hgb Conc 31.7 g/dL (32-36); Mean Corpuscular Hgb 31.1 pg (27.0-32.0); Mean Corpuscular Volume 98.2 fL (80-94); Mean Platelet Vol. 8.4 fl (6.2-12.0); Monocyte# 0.82 X10^3/uL; Monocyte% 8.1 % (0-10); NRBC Flagged by Analyzer 0 % (0-5); Neutrophil % 69.6 % (47-70); Platelet Count 425 K/mm3 (150-450); RBC Distribution Width CV 13.6 % (11.6-14.6); RBC Distribution Width SD 49.2 fl (35.1-43.9); Red Blood Count 4.37 M/mm3 (4.6-6.2); White Blood Count 10.2 K/mm3 (4.4-11.0)
[2020-08-15 10:16] LABS: ALB/GLOB Ratio 1.2 RATIO (0.9-2.4); AST(SGOT) 27 U/L (15-37); Alanine Aminotransfer ALT/SGPT 48 U/L (16-61); Albumin, Serum 3.8 g/dL (3.2-5.0); Alkaline Phosphatase 57 U/L (45-117); Anion Gap 7 (5-15); BUN 14 mg/dL (7-18); BUN/Creat Ratio 16.1 RATIO (10-20); Calcium,Total 8.6 mg/dL (8.5-10.1); Chloride 105 mmol/L (98-107); Creatinine, Serum 0.87 mg/dL (0.70-1.30); EST Glomerular Filtration Rate 94 mL/min (>60); Est Glom Filt Rate - Afr Amer 114 mL/min (>60); Globulin 3.3 g/dL (2.2-4.2); Glucose 115 mg/dL (74-106); Protein, Total 7.1 g/dL (6.4-8.2); Sodium Level 139 mmol/L (136-145)
== END ==
PROVIDERS: Referring Provider Internal Medicine Rheumatology; Visit Provider Internal Medicine Rheumatology
DX: M06.4 Inflammatory polyarthropathy (principal); I10 Essential (primary) hypertension; F41.9 Anxiety disorder, unspecified; Z79.899 Other long term (current) drug therapy
CPT/HCPCS: 36415; 80053; 85025

== ENCOUNTER → 2020-10-14 08:57 | Outpatient (CLI) | payer OTHER, SELFPAY ==
[2020-10-14 10:08] LABS: Absolute Lymphocyte Count 1.83 X10^3/uL (0.83-4.51); Absolute Neutrophil Count 4.9 X10^3/uL (2.0-7.7); Basophil# 0.05 X10^3/uL; Basophil% 0.7 % (0-1); Eosinophil# 0.26 X10^3/uL; Eosinophils% 3.5 % (0-5); Hematocrit 42.8 % (40-54); Hemoglobin 13.9 g/dL (13.0-16.5); Lymphocyte # 1.83 X10^3/ul (4.0); Lymphocyte % 24.3 % (19-41); Mean Corp Hgb Conc 32.5 g/dL (32-36); Mean Corpuscular Hgb 31.4 pg (27.0-32.0); Mean Corpuscular Volume 96.6 fL (80-94); Mean Platelet Vol. 8.7 fl (6.2-12.0); Monocyte# 0.51 X10^3/uL; Monocyte% 6.8 % (0-10); NRBC Flagged by Analyzer 0 % (0-5); Neutrophil # 4.85 X10^3/uL (2.7-7.7); Neutrophil % 64.4 % (47-70); Platelet Count 428 K/mm3 (150-450); RBC Distribution Width CV 13.2 % (11.6-14.6); RBC Distribution Width SD 46.6 fl (35.1-43.9); Red Blood Count 4.43 M/mm3 (4.6-6.2); White Blood Count 7.5 K/mm3 (4.4-11.0)
[2020-10-14 10:58] LABS: ALB/GLOB Ratio 1.2 RATIO (0.9-2.4); AST(SGOT) 24 U/L (15-37); Alanine Aminotransfer ALT/SGPT 40 U/L (16-61); Albumin, Serum 3.9 g/dL (3.2-5.0); Alkaline Phosphatase 59 U/L (45-117); Anion Gap 5 (5-15); BUN 13 mg/dL (7-18); BUN/Creat Ratio 14.4 RATIO (10-20); Chloride 107 mmol/L (98-107); EST Glomerular Filtration Rate 90 mL/min (>60); Est Glom Filt Rate - Afr Amer 109 mL/min (>60); Globulin 3.3 g/dL (2.2-4.2); Glucose 115 mg/dL (74-106); Potassium 4.2 mmol/L (3.5-5.1); Protein, Total 7.2 g/dL (6.4-8.2); Sodium Level 140 mmol/L (136-145)
== END ==
PROVIDERS: Referring Provider Internal Medicine Rheumatology; Visit Provider Internal Medicine Rheumatology
DX: M06.4 Inflammatory polyarthropathy (principal); I10 Essential (primary) hypertension; F41.9 Anxiety disorder, unspecified; Z79.899 Other long term (current) drug therapy
CPT/HCPCS: 36415; 80053; 85025

== ENCOUNTER → 2021-01-03 11:54 | Outpatient (CLI) | payer OTHER, SELFPAY ==
[2021-01-03 15:31] LABS: Absolute Lymphocyte Count 1.35 X10^3/uL (0.83-4.51); Absolute Neutrophil Count 9.2 X10^3/uL (2.0-7.7); Basophil# 0.06 X10^3/uL; Basophil% 0.5 % (0-1); Eosinophil# 0.07 X10^3/uL; Eosinophils% 0.6 % (0-5); Hematocrit 41.1 % (40-54); Lymphocyte # 1.35 X10^3/ul (4.0); Lymphocyte % 11.5 % (19-41); Mean Corp Hgb Conc 31.6 g/dL (32-36); Mean Corpuscular Hgb 30.4 pg (27.0-32.0); Monocyte# 1.04 X10^3/uL; Monocyte% 8.9 % (0-10); NRBC Flagged by Analyzer 0 % (0-5); Neutrophil # 9.15 X10^3/uL (2.7-7.7); Neutrophil % 78.2 % (47-70); Platelet Count 481 K/mm3 (150-450); RBC Distribution Width CV 13.2 % (11.6-14.6); RBC Distribution Width SD 46.4 fl (35.1-43.9); Red Blood Count 4.28 M/mm3 (4.6-6.2); White Blood Count 11.7 K/mm3 (4.4-11.0)
[2021-01-03 16:02] LABS: AST(SGOT) 20 U/L (15-37); Alanine Aminotransfer ALT/SGPT 38 U/L (16-61); Albumin, Serum 3.8 g/dL (3.2-5.0); Alkaline Phosphatase 73 U/L (45-117); Anion Gap 7 (5-15); BUN 9 mg/dL (7-18); BUN/Creat Ratio 11.9 RATIO (10-20); Calcium,Total 9.2 mg/dL (8.5-10.1); Chloride 101 mmol/L (98-107); Creatinine, Serum 0.76 mg/dL (0.70-1.30); EST Glomerular Filtration Rate 110 mL/min (>60); Est Glom Filt Rate - Afr Amer 133 mL/min (>60); Globulin 3.7 g/dL (2.2-4.2); Glucose 96 mg/dL (74-106); Potassium 4.2 mmol/L (3.5-5.1); Protein, Total 7.5 g/dL (6.4-8.2); Sodium Level 136 mmol/L (136-145)
== END ==
PROVIDERS: Referring Provider Internal Medicine Rheumatology; Visit Provider Internal Medicine Rheumatology
DX: M06.4 Inflammatory polyarthropathy (principal); I10 Essential (primary) hypertension; F41.9 Anxiety disorder, unspecified; Z79.899 Other long term (current) drug therapy
CPT/HCPCS: 36415; 80053; 85025

== ENCOUNTER → 2021-04-04 08:51 | Outpatient (CLI) | payer OTHER, SELFPAY ==
[2021-04-04 09:55] LABS: Absolute Lymphocyte Count 1.67 X10^3/uL (0.83-4.51); Absolute Neutrophil Count 5.6 X10^3/uL (2.0-7.7); Basophil# 0.05 X10^3/uL; Basophil% 0.6 % (0-1); Eosinophils% 2.4 % (0-5); Hematocrit 41.3 % (40-54); Hemoglobin 13.6 g/dL (13.0-16.5); Lymphocyte # 1.67 X10^3/ul (0.83-4.51); Mean Corp Hgb Conc 32.9 g/dL (32-36); Mean Corpuscular Hgb 31.2 pg (27.0-32.0); Mean Corpuscular Volume 94.7 fL (80-94); Mean Platelet Vol. 8.2 fl (6.2-12.0); Monocyte# 0.79 X10^3/uL; Monocyte% 9.4 % (0-10); NRBC Flagged by Analyzer 0 % (0-5); Neutrophil # 5.61 X10^3/uL (2.7-7.7); Neutrophil % 67.1 % (47-70); Platelet Count 453 K/mm3 (150-450); RBC Distribution Width SD 48.3 fl (35.1-43.9); Red Blood Count 4.36 M/mm3 (4.6-6.2); White Blood Count 8.4 K/mm3 (4.4-11.0)
[2021-04-04 10:35] LABS: ALB/GLOB Ratio 1.2 RATIO (0.9-2.4); AST(SGOT) 28 U/L (15-37); Alanine Aminotransfer ALT/SGPT 47 U/L (16-61); Alkaline Phosphatase 59 U/L (45-117); Anion Gap 6 (5-15); BUN 16 mg/dL (7-18); BUN/Creat Ratio 20.9 RATIO (10-20); Calcium,Total 8.9 mg/dL (8.5-10.1); Chloride 106 mmol/L (98-107); Creatinine, Serum 0.77 mg/dL (0.70-1.30); EST Glomerular Filtration Rate 109 mL/min (>60); Est Glom Filt Rate - Afr Amer 131 mL/min (>60); Globulin 3.2 g/dL (2.2-4.2); Glucose 110 mg/dL (74-106); Potassium 4.2 mmol/L (3.5-5.1); Protein, Total 7.2 g/dL (6.4-8.2); Sodium Level 140 mmol/L (136-145)
== END ==
PROVIDERS: Referring Provider Internal Medicine Rheumatology; Visit Provider Internal Medicine Rheumatology
DX: M06.4 Inflammatory polyarthropathy (principal); I10 Essential (primary) hypertension; F41.9 Anxiety disorder, unspecified; Z79.899 Other long term (current) drug therapy
CPT/HCPCS: 36415; 80053; 85025

== ENCOUNTER 2021-05-22 12:56 | Emergency (ER) | payer OTHER, SELFPAY ==
[2021-05-22 12:56] VITALS: BP 156/109; PULSE 87; RESP 17; TEMP 36.3; O2SAT 97; BMI 20.2
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
[2021-05-22 15:49] VITALS: BP 167/104; PULSE 80; RESP 16; O2SAT 96
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
== END 2021-05-22 16:18 | disposition home or self-care (01) ==
PROVIDERS: Emergency Provider Emergency Medicine
DX: S20.219A Contusion of unspecified front wall of thorax, initial encounter (principal); V43.52XA Car driver injured in collision with other type car in traffic accident, initial encounter; Y93.89 Activity, other specified; Y92.9 Unspecified place or not applicable; Y99.9 Unspecified external cause status; M19.90 Unspecified osteoarthritis, unspecified site; F17.200 Nicotine dependence, unspecified, uncomplicated; Z79.899 Other long term (current) drug therapy
CPT/HCPCS: 71046; 71120; 99282

== ENCOUNTER → 2021-07-06 10:39 | Outpatient (CLI) | payer OTHER, SELFPAY ==
[2021-07-06 12:00] LABS: Absolute Lymphocyte Count 1.39 X10^3/uL (0.83-4.51); Absolute Neutrophil Count 9.3 X10^3/uL (2.0-7.7); Basophil# 0.07 X10^3/uL; Basophil% 0.6 % (0-1); Eosinophil# 0.07 X10^3/uL; Eosinophils% 0.6 % (0-5); Hematocrit 41.9 % (40-54); Hemoglobin 13.7 g/dL (13.0-16.5); Lymphocyte # 1.39 X10^3/ul (0.83-4.51); Lymphocyte % 11.9 % (19-41); Mean Corp Hgb Conc 32.7 g/dL (32-36); Mean Corpuscular Hgb 31.1 pg (27.0-32.0); Mean Platelet Vol. 8.3 fl (6.2-12.0); Monocyte# 0.69 X10^3/uL; Monocyte% 5.9 % (0-10); NRBC Flagged by Analyzer 0 % (0-5); Neutrophil # 9.28 X10^3/uL (2.7-7.7); Neutrophil % 79.8 % (47-70); Platelet Count 416 K/mm3 (150-450); RBC Distribution Width CV 13.8 % (11.6-14.6); RBC Distribution Width SD 47.9 fl (35.1-43.9); Red Blood Count 4.41 M/mm3 (4.6-6.2); White Blood Count 11.6 K/mm3 (4.4-11.0)
[2021-07-06 12:14] LABS: ALB/GLOB Ratio 1.1 RATIO (0.9-2.4); AST(SGOT) 25 U/L (15-37); Alanine Aminotransfer ALT/SGPT 51 U/L (16-61); Alkaline Phosphatase 62 U/L (45-117); Anion Gap 4 (5-15); BUN 15 mg/dL (7-18); BUN/Creat Ratio 20.6 RATIO (10-20); Calcium,Total 9.2 mg/dL (8.5-10.1); Chloride 107 mmol/L (98-107); Creatinine, Serum 0.73 mg/dL (0.70-1.30); EST Glomerular Filtration Rate 115 mL/min (>60); Est Glom Filt Rate - Afr Amer 139 mL/min (>60); Globulin 3.5 g/dL (2.2-4.2); Glucose 112 mg/dL (74-106); Protein, Total 7.5 g/dL (6.4-8.2); Sodium Level 137 mmol/L (136-145)
== END ==
PROVIDERS: Referring Provider Internal Medicine Rheumatology; Visit Provider Internal Medicine Rheumatology
DX: M06.4 Inflammatory polyarthropathy (principal); I10 Essential (primary) hypertension; F41.9 Anxiety disorder, unspecified; Z79.899 Other long term (current) drug therapy
CPT/HCPCS: 36415; 80053; 85025

== ENCOUNTER 2021-08-21 10:43 | Emergency (ER) | payer OTHER, SELFPAY ==
[2021-08-21 10:45] VITALS: BP 157/96; PULSE 88; RESP 16; TEMP 36.9; O2SAT 95; BMI 21.2
--- NOTE | 2021-08-21 11:06 | EKG12_ITS ---
Test Reason : CP Blood Pressure : / mmHG Vent. Rate : 081 BPM Atrial Rate : 081 BPM P-R Int : 150 ms QRS Dur : 142 ms QT Int : 406 ms P-R-T Axes : 077 077 056 degrees QTc Int : 471 ms Normal sinus rhythm Right bundle branch block Abnormal ECG Confirmed by BENITA BERNARD, TERRIE ([id number]), proposal editor MAINOR ELIZABETH ([id number]) on 08/23/2021 9:02:46 AM Referred By: KASEY Confirmed By:TERRIE JOY MD
--- NOTE | 2021-08-21 11:06 | CT_ITS ---
STUDY: CT CHEST WITHOUT CONTRAST REASON FOR EXAM: Male, 65 years old. Chest pain / ? Sternal fracture RADIATION DOSAGE (If Supplied By Facility): CTDIvol = ( 7.91 ) mGy, DLP = ( 324.35 ) mGycm TECHNIQUE: Transaxial imaging was performed without the administration of intravenous contrast material. Multiplanar coronal and sagittal images were reformatted. Individualized dose optimization techniques were used for this CT. COMPARISON: None. FINDINGS: Hyperinflation and mild degree of emphysematous changes. Minimal increased linear markings at the lung bases suggestive of mild scarring. There is no demonstrated pleural abnormality. Normal heart and pericardium. Normal mediastinum. Normal hilar regions. Normal unenhanced pulmonary arteries. There is atherosclerotic calcification of the aortic arch . There are multi-level degenerative changes of the thoracic spine. There is evidence of a nondisplaced transverse fracture through the midportion of the body of the sternum. Overlying soft tissue swelling. There is no demonstrated abnormality of the visualized upper abdomen. CT/Chest without Contrast IMPRESSION: Nondisplaced transverse fracture through the midportion of the body of the sternum. This most likely is subacute in nature. Overlying soft tissue swelling. Electronically Signed: Silvio Galvan MD at 11:54 EDT , Service support ,
[2021-08-21] MEDS: morphine 10 MG/ML Syringe 8 MG IM (11:16)
[2021-08-21] MEDS: Ondansetron ODT 4 MG Tablet PO (11:16)
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
[2021-08-21 12:51] VITALS: BP 121/79; PULSE 82; RESP 15; O2SAT 96
== END 2021-08-21 12:52 | disposition home or self-care (01) ==
PROVIDERS: Emergency Provider Emergency Medicine
DX: S22.2 Fracture of sternum (principal); V99.XXXD Unspecified transport accident, subsequent encounter; I10 Essential (primary) hypertension; M19.90 Unspecified osteoarthritis, unspecified site; F17.200 Nicotine dependence, unspecified, uncomplicated; Z79.899 Other long term (current) drug therapy
CPT/HCPCS: 71250; 93005; 96372; 99283

== ENCOUNTER → 2021-08-30 11:28 | Outpatient (CLI) | payer OTHER, SELFPAY ==
[2021-08-30 15:25] LABS: Absolute Lymphocyte Count 1.29 X10^3/uL (0.83-4.51); Absolute Neutrophil Count 8.6 X10^3/uL (2.0-7.7); Basophil# 0.06 X10^3/uL; Basophil% 0.6 % (0-1); Eosinophil# 0.06 X10^3/uL; Eosinophils% 0.6 % (0-5); Hematocrit 41.3 % (40-54); Hemoglobin 13.6 g/dL (13.0-16.5); Lymphocyte # 1.29 X10^3/ul (0.83-4.51); Lymphocyte % 11.9 % (19-41); Mean Corp Hgb Conc 32.9 g/dL (32-36); Mean Corpuscular Hgb 31.9 pg (27.0-32.0); Mean Corpuscular Volume 96.7 fL (80-94); Mean Platelet Vol. 8.5 fl (6.2-12.0); Monocyte# 0.77 X10^3/uL; Monocyte% 7.1 % (0-10); NRBC Flagged by Analyzer 0 % (0-5); Neutrophil # 8.62 X10^3/uL (2.7-7.7); Neutrophil % 79.5 % (47-70); Platelet Count 453 K/mm3 (150-450); RBC Distribution Width CV 13.5 % (11.6-14.6); RBC Distribution Width SD 47.8 fl (35.1-43.9); Red Blood Count 4.27 M/mm3 (4.6-6.2); White Blood Count 10.8 K/mm3 (4.4-11.0)
[2021-08-30 15:41] LABS: Cholesterol 168 mg/dL (200); High Density Lipoprotein 64 mg/dL; Triglycerides 61 mg/dL; Very Low Density Lipoprotein 12 mg/dL (5-40)
== END ==
LOC: MFPLAB 11:31
PROVIDERS: PCP Family Medicine; Referring Provider Family Medicine; Visit Provider Family Medicine
DX: I10 Essential (primary) hypertension (principal)
CPT/HCPCS: 36415; 80061; 85025

== ENCOUNTER → 2021-09-19 10:52 | Outpatient (CLI) | payer OTHER, SELFPAY ==
[2021-09-19 12:18] LABS: Absolute Lymphocyte Count 1.83 X10^3/uL (0.83-4.51); Absolute Neutrophil Count 8.6 X10^3/uL (2.0-7.7); Basophil# 0.06 X10^3/uL; Basophil% 0.5 % (0-1); Eosinophil# 0.12 X10^3/uL; Hemoglobin 13.2 g/dL (13.0-16.5); Lymphocyte # 1.83 X10^3/ul (0.83-4.51); Lymphocyte % 15.7 % (19-41); Mean Corpuscular Hgb 31.8 pg (27.0-32.0); Mean Corpuscular Volume 96.4 fL (80-94); Mean Platelet Vol. 8.8 fl (6.2-12.0); Monocyte# 0.94 X10^3/uL; Monocyte% 8.1 % (0-10); NRBC Flagged by Analyzer 0 % (0-5); Neutrophil # 8.63 X10^3/uL (2.7-7.7); Neutrophil % 74.4 % (47-70); Platelet Count 425 K/mm3 (150-450); RBC Distribution Width CV 13.2 % (11.6-14.6); RBC Distribution Width SD 46.6 fl (35.1-43.9); Red Blood Count 4.15 M/mm3 (4.6-6.2); White Blood Count 11.6 K/mm3 (4.4-11.0)
[2021-09-19 13:06] LABS: AST(SGOT) 30 U/L (15-37); Alanine Aminotransfer ALT/SGPT 61 U/L (16-61); Albumin, Serum 3.6 g/dL (3.2-5.0); Alkaline Phosphatase 57 U/L (45-117); Anion Gap 7 (5-15); BUN 13 mg/dL (7-18); Chloride 108 mmol/L (98-107); Creatinine, Serum 0.68 mg/dL (0.70-1.30); EST Glomerular Filtration Rate 123 mL/min (>60); Est Glom Filt Rate - Afr Amer 149 mL/min (>60); Globulin 3.7 g/dL (2.2-4.2); Glucose 93 mg/dL (74-106); Potassium 4.1 mmol/L (3.5-5.1); Protein, Total 7.3 g/dL (6.4-8.2); Sodium Level 139 mmol/L (136-145)
== END ==
LOC: MTLAB 10:53
PROVIDERS: PCP Family Medicine; Referring Provider Internal Medicine Rheumatology; Visit Provider Internal Medicine Rheumatology
DX: M06.4 Inflammatory polyarthropathy (principal); I10 Essential (primary) hypertension; F41.9 Anxiety disorder, unspecified; Z79.899 Other long term (current) drug therapy
CPT/HCPCS: 36415; 80053; 85025

== ENCOUNTER 2021-12-11 14:24 | Outpatient (CLI) | payer OTHER, MEDICARE, SELFPAY ==
[2021-12-11 18:15] LABS: Absolute Lymphocyte Count 1.36 X10^3/uL (0.83-4.51); Absolute Neutrophil Count 8.2 X10^3/uL (2.0-7.7); Basophil# 0.05 X10^3/uL; Basophil% 0.5 % (0-1); Eosinophil# 0.06 X10^3/uL; Eosinophils% 0.6 % (0-5); Hematocrit 41.9 % (40-54); Hemoglobin 13.6 g/dL (13.0-16.5); Lymphocyte # 1.36 X10^3/ul (0.83-4.51); Lymphocyte % 13.1 % (19-41); Mean Corp Hgb Conc 32.5 g/dL (32-36); Mean Corpuscular Hgb 31.1 pg (27.0-32.0); Mean Corpuscular Volume 95.9 fL (80-94); Mean Platelet Vol. 8.2 fl (6.2-12.0); Monocyte# 0.75 X10^3/uL; Monocyte% 7.2 % (0-10); NRBC Flagged by Analyzer 0 % (0-5); Neutrophil # 8.16 X10^3/uL (2.7-7.7); Neutrophil % 78.2 % (47-70); Platelet Count 427 K/mm3 (150-450); RBC Distribution Width CV 13.5 % (11.6-14.6); RBC Distribution Width SD 47.4 fl (35.1-43.9); Red Blood Count 4.37 M/mm3 (4.6-6.2); White Blood Count 10.4 K/mm3 (4.4-11.0)
[2021-12-11 18:30] LABS: ALB/GLOB Ratio 1.3 RATIO (0.9-2.4); AST(SGOT) 25 U/L (15-37); Alanine Aminotransfer ALT/SGPT 43 U/L (16-61); Albumin, Serum 4.4 g/dL (3.2-5.0); Alkaline Phosphatase 58 U/L (45-117); Anion Gap 7 (5-15); BUN 9 mg/dL (7-18); BUN/Creat Ratio 11.6 RATIO (10-20); Calcium,Total 9.3 mg/dL (8.5-10.1); Chloride 102 mmol/L (98-107); Creatinine, Serum 0.77 mg/dL (0.70-1.30); EST Glomerular Filtration Rate 107 mL/min (>60); Est Glom Filt Rate - Afr Amer 130 mL/min (>60); Globulin 3.3 g/dL (2.2-4.2); Glucose 97 mg/dL (74-106); Potassium 3.9 mmol/L (3.5-5.1); Protein, Total 7.7 g/dL (6.4-8.2); Sodium Level 137 mmol/L (136-145)
== END 2021-12-11 23:59 | disposition home or self-care (01) ==
LOC: MTLAB 14:24
PROVIDERS: PCP Family Medicine; Referring Provider Internal Medicine Rheumatology; Visit Provider Internal Medicine Rheumatology
DX: M06.4 Inflammatory polyarthropathy (principal); I10 Essential (primary) hypertension; F41.9 Anxiety disorder, unspecified; Z79.899 Other long term (current) drug therapy
CPT/HCPCS: 36415; 80053; 85025

== ENCOUNTER → 2022-03-16 | Outpatient (CLI) | payer OTHER, MEDICARE, SELFPAY ==
[2022-03-16 15:20] LABS: Absolute Lymphocyte Count 0.58 X10^3/uL (0.83-4.51); Absolute Neutrophil Count 7.7 X10^3/uL (2.0-7.7); Basophil# 0.04 X10^3/uL; Basophil% 0.5 % (0-1); Eosinophil# 0.01 X10^3/uL; Eosinophils% 0.1 % (0-5); Hematocrit 40.7 % (40-54); Hemoglobin 13.3 g/dL (13.0-16.5); Lymphocyte # 0.58 X10^3/ul (0.83-4.51); Lymphocyte % 6.7 % (19-41); Mean Corp Hgb Conc 32.7 g/dL (32-36); Mean Corpuscular Hgb 31.1 pg (27.0-32.0); Mean Corpuscular Volume 95.3 fL (80-94); Mean Platelet Vol. 8.3 fl (6.2-12.0); Monocyte# 0.34 X10^3/uL; Monocyte% 3.9 % (0-10); NRBC Flagged by Analyzer 0 % (0-5); Neutrophil # 7.65 X10^3/uL (2.7-7.7); Neutrophil % 88.6 % (47-70); POSITIVE DIFFERENTIAL YES; Platelet Count 412 K/mm3 (150-450); RBC Distribution Width SD 45.3 fl (35.1-43.9); Red Blood Count 4.27 M/mm3 (4.6-6.2); White Blood Count 8.6 K/mm3 (4.4-11.0)
[2022-03-16 15:24] LABS: Differential Indicated SCAN CRITERIA MET
[2022-03-16 15:49] LABS: ALB/GLOB Ratio 1.2 RATIO (0.9-2.4); AST(SGOT) 23 U/L (15-37); Alanine Aminotransfer ALT/SGPT 37 U/L (16-61); Albumin, Serum 3.8 g/dL (3.2-5.0); Alkaline Phosphatase 53 U/L (45-117); Anion Gap 5 (5-15); BUN 13 mg/dL (7-18); BUN/Creat Ratio 15.5 RATIO (10-20); Calcium,Total 8.8 mg/dL (8.5-10.1); Chloride 108 mmol/L (98-107); Creatinine, Serum 0.84 mg/dL (0.70-1.30); Differential Comment SCANNED; EST Glomerular Filtration Rate 97 mL/min (>60); Est Glom Filt Rate - Afr Amer 118 mL/min (>60); Globulin 3.2 g/dL (2.2-4.2); Glucose 103 mg/dL (74-106); Potassium 4.2 mmol/L (3.5-5.1); Sodium Level 139 mmol/L (136-145)
== END | disposition home or self-care (01) ==
LOC: MTLAB 13:58
PROVIDERS: PCP Family Medicine; Referring Provider Internal Medicine Rheumatology; Visit Provider Internal Medicine Rheumatology
DX: M06.4 Inflammatory polyarthropathy (principal); I10 Essential (primary) hypertension; I45.10 Unspecified right bundle-branch block; F41.9 Anxiety disorder, unspecified; Z79.899 Other long term (current) drug therapy
CPT/HCPCS: 36415; 80053; 85025

== ENCOUNTER → 2022-08-02 | Outpatient (CLI) | payer OTHER, MEDICARE, SELFPAY ==
--- NOTE | 2022-08-02 16:41 | RAD_ITS ---
INDICATION: Right hip pain after falling 3 days ago. Previous hip replacement by 2. EXAMINATION/TECHNIQUE: X-RAY - XR Hip Unilateral with Pelvis when performed; 2-3 Views: AP view pelvis with AP and lateral views of right hip COMPARISON: Right hip radiographs from 02/26/2018 FINDINGS: PELVIC BONES: No displaced fracture or suspicious osseous lesion demonstrated. Note that overlapping bowel shadows may however obscure fine detail. Sacroiliac joints are unremarkable. No widening of the pubic symphysis. Degenerative changes along the imaged lower lumbar spine. HIPS: Stable appearance of right hip arthroplasty hardware with no signs of acute hardware complication. No acute fracture or dislocation. Adequate alignment of left hip with preserved left hip joint space. SOFT TISSUES: No acute findings. RAD/HIP, UNI W/ Pelvis 2-3 Views IMPRESSION: Previous right hip arthroplasty with no evidence of acute osseous injury. Electronically Signed: Kieran Sagastume MD at 4:00 EDT ,
== END | disposition home or self-care (01) ==
LOC: MTRAD 16:39
PROVIDERS: PCP Family Medicine; Referring Provider Family Medicine; Visit Provider Family Medicine
DX: M25.551 Pain in right hip (principal)
CPT/HCPCS: 73502

== ENCOUNTER → 2023-03-01 | Outpatient (CLI) | payer OTHER, MEDICARE, SELFPAY ==
[2023-03-01 10:36] LABS: Vitamin D,25 Hydroxy 24.7 ng/mL
[2023-03-01 10:39] LABS: Anion Gap 7 (5-15); BUN 17 mg/dL (7-18); BUN/Creat Ratio 21.1 RATIO (10-20); Chloride 105 mmol/L (98-107); Cholesterol 175 mg/dL (200); EST Glomerular Filtration Rate 102 mL/min (>60); Est Glom Filt Rate - Afr Amer 123 mL/min (>60); Glucose 107 mg/dL (74-106); High Density Lipoprotein 61 mg/dL; PSA,Total - Annual Screen 2.76 ng/mL (0.00-4.00); Potassium 4.9 mmol/L (3.5-5.1); Sodium Level 138 mmol/L (136-145); Triglycerides 49 mg/dL; Very Low Density Lipoprotein 10 mg/dL (5-40)
== END | disposition home or self-care (01) ==
LOC: MTLAB 08:35
PROVIDERS: PCP Family Medicine; Referring Provider Family Medicine; Visit Provider Family Medicine
DX: Z00.00 Encounter for general adult medical examination without abnormal findings (principal); I10 Essential (primary) hypertension
CPT/HCPCS: 36415; 80048; 80061; 82306; 84153; G0103

== ENCOUNTER → 2023-12-09 | Outpatient (CLI) | payer MEDICARE, SELFPAY ==
--- NOTE | 2023-12-09 15:26 | RAD_ITS ---
STUDY: X-RAY - RIGHT HAND, ATTENTION FIRST FINGER REASON FOR EXAM: Male, 68 years old. THUMB PAIN TECHNIQUE: 3 view(s) of the finger were obtained. COMPARISON: None. FINDINGS: Normal metacarpal head. Trace subchondral cyst versus erosive change in the metacarpal head. Otherwise normal metacarpophalangeal joint. Normal proximal phalanx. Normal distal phalanx. There is mild degenerative arthrosis of the interphalangeal joint. There is no demonstrated fracture. 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 Cannot exclude minimal erosive change of the first metacarpal head, otherwise normal study with no distinct fracture or subluxation seen. Electronically Signed: Yohana Quevedo MD at 17:09 EST ,
--- OUTSIDE RECORDS SUMMARY | 2023-12-09 19:59 | XMS RPT_ITS | CCD ---
Author Name Unknown Address [address] [place] [address] Organization [facility] Care Team Providers Care Dance Instructor Name Role Phone MARIELY HENDERSON () Unavailable Unav ailable MARIELY HENDERSON) Unavailable Unav ailable MARIELY HENDERSON () Unavailable Unav ailable MARIELY HENDERSON () Unavailable Unav ailable BURSMARIELY GRAVES () Unavailable Unav ailable JONES, GRUPO Unavailable Unavailable JONES, GRUPO Unavailable Unavailable JONES, GRUPO Unavailable Unavailable JONES, GRUPO Unavailable Unavailable JONES, GRUPO Unavailable Unavailable OLDER, CAMRYN (AQUATIC CENTRE MANAGER) Unavailable Unavailable JONES, GRUPO Unavailable Unavailable OLDER, CAMRYN (AQUATIC CENTRE MANAGER) Unavailable Unavailable PAVEL BATES A Unavailable Unavailable JONES, GRUPO Unavailable Unavailable JONES, GRUPO Unavailable Unavailable Unavailable Primary Care Provider Unavailabl e Medications Current Medications Medication Drug Class(es) Dates Sig (Normalized) Sig (Original) acetaminophen 500 mg oral tablet (5 sources) Start: 09-07-2021 End: 09-07-2021 take 1 dose by mouth three times daily 1,000 mg, Oral, EVERY 8 HOURS SCHEDULED (3 times per day), First dose on Sanjuanita 09/07/21 at 1645 Maximum dose of acetaminophen is 4000 mg from all sources in 24 hours. Completed/Discontinued Medications Medication Drug Class(es) Dates Sig (Normalized) Sig (Original) ALPRAZolam 0.25 mg disintegrating oral tablet (1 source) Benzodiazepine Start: 09-07-2021 End: 09-07-2021 ALPRAZolam (NIRAVAM) dissolvable tablet 0.25 mg famotidine 20 mg oral tablet (1 source) Histamine-2 Receptor Antagonist Start: 09-07-2021 End: 09-07-2021 famotidine (PEPCID) tablet 20 mg Problems Active Problems Problem Classification Problem Date Documented Da te Episodic/Chronic Essential hypertension (1 source) Essential (primary) hypertension; Translations: [Essential (primary) hypertension] Onset: 01-01-2018 Chronic Past or Other Problems Problem Classification Problem Date Documented Da te Episodic/Chronic Immunizations and screening for infectious disease (1 source) Encounter for screening for other viral diseases; Translations: [Encounter for screening for other viral diseases] Onset: 01-22-2018 Episodic Other connective tissue disease (2 sources) Pain in left hand; Translations: [Pain in right hand] Onset: 09-23-2017 Episodic Other non-traumatic joint disorders (2 sources) Pain in left wrist; Translations: [Effusion, left wrist] Onset: 09-23-2017 Episodic Results Test Name Value Interpretation Reference Range Facil ity Vital Signs Date Time Vital Sign Value Performing Clinician Faci lity 09-08-2021 10:17-0500 Diastolic blood pressure 93 mm[Hg] Arturo Hernandez MD Work Phone: [facility] 09-08-2021 10:17-0500 Heart rate 91 /min Arturo Hernandez MD Work Phone: [facility] 09-08-2021 10:17-0500 Systolic blood pressure 169 mm[Hg] Arturo Hernandez MD Work Phone: [facility] 09-08-2021 09:15-0500 Body temperature 98.29 [degF] Arturo Hernandez MD Work Phone: [facility] 09-08-2021 09:15-0500 Respiratory rate 20 /min Arturo Hernandez MD Work Phone: [facility] 09-08-2021 09:15-0500 SaO2% (BldA) [Mass fraction] 100 % Arturo Hernandez MD Work Phone: [facility] 09-07-2021 10:00-0500 Body height 167.6 cm Arturo Hernandez MD Work Phone: [facility] 09-07-2021 10:00-0500 Body mass index (BMI) [Ratio] 22.27 kg/m2 Arturo Hernandez MD Work Phone: [facility] 09-07-2021 10:00-0500 Body weight 62.6 kg Arturo Hernandez MD Work Phone: [facility] 09-04-2021 14:13-0500 Body temperature 97.9 [degF] Arturo Hernadnez MD Work Phone: [facility] 09-04-2021 14:13-0500 Diastolic blood pressure 88 mm[Hg] Arturo Hernandez MD Work Phone: [facility] 09-04-2021 14:13-0500 Heart rate 91 /min Arturo Hernandez MD Work Phone: [facility] 09-04-2021 14:13-0500 SaO2% (BldA) [Mass fraction] 97 % Arturo Hernandez MD Work Phone: [facility] 09-04-2021 14:13-0500 Systolic blood pressure 154 mm[Hg] Arturo Hernandez MD Work Phone: [facility] 09-04-2021 14:13-0500 Body height 167.6 cm Arturo Hernandez MD Work Phone: [facility] 09-04-2021 14:13-0500 Body mass index (BMI) [Ratio] 22.27 kg/m2 Arturo Hernandez MD Work Phone: [facility] 09-04-2021 14:13-0500 Body weight 62.6 kg Arturo Hernandez MD Work Phone: [facility] Encounters Encounter Date Encounter Type Care Provider Facility Start: 09-07-2021 End: 09-08-2021 Evaluation and management of inpatient Arturo Hernandez MD Work Phone: [facility] H6 TELEMETRY Procedures Date Procedure Procedure Detail Performing Clinician Start: 09-08-2021 BASIC METABOLIC PANE L W/ REFLEX TO MG FOR LOW K Timothy Hernandes MD Work Phone: Start: 09-08-2021 Blood count complete auto&auto difrntl wbc Timothy Hernandes MD Work Phone: Start: 09-07-2021 OPERATIVE REPORT 3m Sca nning Start: 09-04-2021 Antibody screen Arturo awad MD Work Phone: Start: 09-04-2021 Radiologic exam ches t 2 views Candi Chung PA-C Work Phone: Start: 09-04-2021 Blood typing serologic abo Candi Chung PA-C Work Phone: Start: 09-04-2021 Comprehensive metabo lic panel Candi Chung PA-C Work Phone: Start: 09-04-2021 MRSA BY PCR Candi earl PA-C Work Phone: Start: 09-04-2021 Urnls dip stick/tabl et rgnt auto w/o microscopy Candi Chung PA-C Work Phone: Start: 09-04-2021 Ecg routine ecg w/le ast 12 lds w/i&r Candi Chung PA-C Work Phone: Plan of Treatment Date Care Activity Detail Author Start: 09-08-2022 Creatinine measurement Creatinine monitoring [facility] Start: 09-08-2022 Potassium monitoring Potassium monitoring [facility] Start: 09-26-2021 End: 09-26-2021 Patient encounter procedure 09/26/2021 Office Visit Cardiothoracic Surgery Ruma Self, KOURTNEY - AQUATIC CENTRE MANAGER [address] [place] [address] [facility] Start: 09-07-2021 End: 09-07-2021 Patient encounter procedure 09/07/2021 Appointment General Surgery Arturo Hernandez MD [address] [place], [place] [id number] [facility] General Surgery Start: 08-11-2021 COVID-19 Vaccine (3 - Booster for Pfizer series) COVID-19 Vaccine (3 - Booster for Pfizer series) [facility] Start: 08-11-2021 COVID-19 Vaccine (3 - Pfizer booster) COVID-19 Vaccine (3 - Pfizer booster) [facility] Start: 06-28-2021 Influenza vaccination Flu vaccine (#1) [facility] Start: 2006 Shingles Vaccine (1 of 2) Shingles Vaccine (1 of 2) [facility] Start: 2001 Screening for malignant neoplasm of colon Colon cancer screen colonoscopy [facility] Start: 1996 Lipid panel Lipid screen [facility] Start: 1975 DTaP/Tdap/Td vaccine (1 - Tdap) DTaP/Tdap/Td vaccine (1 - Tdap) [facility] Start: 1971 HIV screening HIV screen [facility] Start: 1955 Hepatitis C screening Hepatitis C screen [facility] Basic Metabolic Pane l w/ Reflex to MG Basic Metabolic Panel w/ Reflex to MG Lab Routine Daily until discontinued starting 09/08/2021, 1 completed [facility] Work Phone: Social History Date Type Detail Facility Start: 08-24-2021 Tobacco smoking stat [facility] Ex-smoker [facility] Work Phone: End: 10-28-1976 History of tobacco use Current smoker [facility] Work Phone: Start: 08-24-2021 Tobacco use and exposure User of smokeless tobacco [facility] Work Phone: History of tobacco use Chews Tobacco [facility] Work Phone: Start: 09-04-2021 End: 09-07-2021 Alcohol intake Ex-drinker (finding) [facility] Work Phone: Start: 09-04-2021 Tobacco Comment smoked pack per week [facility] Work Phone: Start: 1955 Sex Assigned At Not on file [facility] Work Phone: Exposure to SARS-CoV -2 (event) Not sure [facility] Discharge summary note 09-08-2021 Note Date & Type Note Facility 09-08-2021 Note Attestation signed by Arturo Hernandez MD at 09/08/2021 1:24 PM I independently saw and evaluated the patient - including reviewing the labs, imaging studies, and available documentation. I agree with the findings and plan of care as documented by the resident/SALES ANALYTICS MANAGER/ACQUISITION MARKETING COORDINATOR/PA, unless otherwise noted. Please do not hesitate to contact me/us if you have any questions or concerns. Arturo Hernandez MD FACS Discharge Summary Heath Gutierrez : 1955 ADMIT DATE: 09/07/2021 DISCHARGE DATE: 09/08/2021 ATTENDING PHYSICIAN: Arturo Hernandez MD VISIT STATUS: Observation CODE STATUS: Full Code DISCHARGE DIAGNOSES: There are no problems to display for this patient. BMI Classification: Normal Weight (BMI 18.5-24.9) HOSPITAL COURSE: Heath Gutierrez is a 65 y.o. male who presented to [facility] on 09/07/2021 for sternal fixation s/p sternal fracture. Patient tolerated the procedure well. At the time of discharge patient's vital signs were within normal limits. Patient was voiding spontaneously, tolerating a diet, ambulating independently and having bowel function. Patient's pain was controlled with PO pain meds. Pt was discharged with instructions as follows. CONSULTANTS: none SIGNIFICANT DIAGNOSTIC STUDIES: labs: Lab Results Component Value Date WBC 11.5 (H) 09/08/2021 HGB 13.3 09/08/2021 HCT 40.7 09/08/2021 MCV 95.7 09/08/2021 PLT 396 09/08/2021 Lab Results Component Value Date NA 135 09/08/2021 K 4.3 09/08/2021 CL 107 09/08/2021 CO2 21 09/08/2021 BUN 15 09/08/2021 CREATININE 0.70 09/08/2021 GLUCOSE 96 09/08/2021 CALCIUM 8.7 09/08/2021 DIET: ADULT DIET; Regular ACTIVITY: No heavy lifting. No strenuous activity, driving, or exercise (significant) while taking narcotic pain medication and until seen in office for follow up. WOUND CARE: keep wound clean and dry DISPOSITION: Home Follow up with: Arturo Hernandez MD in 1-2 weeks PCP: No primary care provider on file. in 1-2 weeks SIGNED: LEORA BOGGS MD 09/08/2021, 7:32 AM [facility] Hospital Discharge instructions 09-08-2021 Instructions Note Date & Type Note Facility 09-08-2021 Hospital Discharg e instructions Leora Boggs MD - 09/08/2021 Images from the original note were not included. Discharge Instructions Call your surgeon in 1 to 2 days to schedule a follow-up appointment in 1-2 weeks. OK to shower. OK for activity as tolerated. Wound Care: keep wound clean and dry, reinforce dressing PRN and ice to area for comfort. If you have steri-strips, you may remove them 5 days after your surgery. If your steri-strips fall off sooner, you may leave them off. No driving while taking narcotic/sedating medications. You may take an over the counter stool softener while on narcotics for constipation as needed (colace, miralax, etc). Continue your diet as currently ordered. Call your Physician or return to the Emergency Room if you experience: -New or increased pain. -New or increased bleeding. -Nausea & vomitting. -Fever & chills. -Shortness of breath. -Chest pain. -Abdominal distention. documented in this encounter [facility] Phone: History of Present illness Narrative 09-04-2021 Twyla Vega RN - 09/04/2021 2:35 PM Wu Vega RN - 09/04/2021 2:33 PM EST Note Date & Type Note Facility 09-04-2021 History of Present illness Narrative Dr. Dutta's office called and said to do all PAT labs, EKG, CXR, etc. Per open heart protocol. ACQUISITION MARKETING COORDINATOR notified. No PAT orders noted; DR. Hernandez's office called re: whether pt should use CHG before surgery. They stated to have pt use CHG wipes before surgery. documented in this encounter [employer] Work Phone: Hospital Discharge instructions 09-04-2021 Instructions Note Date & Type Note Facility 09-04-2021 Hospital Discharg e instructions Twyla Vega RN - 09/04/2021 CHG cloths and instructions given to patient. Do not eat after midnight. You may have clear liquids up to two hours prior to your surgery. Follow instructions on use of wipes, nasal ointment and mouth rinse as instructed. If you have specific questions, please call Dr. Hernandez's office. Please bring your [facility] [employer] Surgical Information folder on the day of surgery. Please bring a photo ID and insurance information No smoking, no alcohol 24 hours prior to surgery. TAKE the following medications the morning of your surgery: NOTHING You may take Tylenol (Acetaminophen) if needed for pain, or you can take Percocet the morning of your surgery. No Motrin, Ibuprofen, or Advil 24 hours prior to surgery, or longer if instructed by your surgeon. No Aleve or Naprosyn 3 days prior to surgery, or longer if instructed by your surgeon. Do not take aspirin or aspirin containing products for 5 days before surgery, or longer if instructed by your surgeon. You will receive a reminder call the day before surgery with your Same Day Surgery arrival time. You may use the [employer] parking located at the main entrance on [address] [facility] and take the H elevator to the first floor for same day surgery. Take a left after exiting the elevator and check in at the desk. You may use the parking in the Main deck. Take the level one bridge to the H building and follow the signs for same day surgery. Check in at the desk. documented in this encounter [employer] Work Phone: Summary Purpose Family History No Family History Records FoundNo Family History Records FoundNo Family History Records Found Advance Directives No Advanced Directives Records FoundLatest Code Status on File Code Status Date Activated Date Inactivated Comments Full Code 09/07/2021 4:29 PM Full Code 09/07/2021 9:50 AM 09/07/2021 3:45 PM Additional Source Comments (unrecognized sect ion and content) No Status Records FoundNo Status Records FoundNo Status Records Found INFORMATION SOURCE (unrecogn ized section and content) DATE CREATED AUTHOR AUTHOR'S ORGANIZ ATION 09/10/2021 [facility] DATE CREATED AUTHOR AUTHOR'S ORGANIZ ATION 07/06/2022 [employer] Scheduled Active and Recently Administ ered Medications (unrecognized section and content) Continuous Medication Order 09/06/2021 09/07/2021 09/08/2021 lactated ringers infusion IntraVENous, at 50 mL/hr, CONTINUOUS, Starting on Sanjuanita 09/07/21 at 1645 1742 (New Bag - Provider: Kanwal Taylor RN) 0910 (Stopped - Provider: Janett Dexter RN) PRN Medication Order 09/06/2021 09/07/2021 09/08/2021 0.9 % sodium chloride infusion (CANCELED) 25 mL, IntraVENous, at 100 mL/hr, PRN, If patient receiving piggyback infusions without ordered maintenance IV fluids or with frequent/long duration piggyback infusions, Starting on Sanjuanita 09/07/21 at 0950, Administer at the same rate as the piggyback being infused., Pre-op (day of surgery) 1021 (New Bag - Provider: Justine Strickland, DANIELLE) 0.9 % sodium chloride infusion 25 mL, IntraVENous, at 100 mL/hr, PRN, If patient receiving piggyback infusions without ordered maintenance IV fluids or with frequent/long duration piggyback infusions, Starting on Sanjuanita 09/07/21 at 1629, Administer at the same rate as the piggyback being infused. ALPRAZolam (NIRAVAM) dissolvable tablet 0.25 mg (CANCELED) 0.25 mg, Oral, PRN, Anxiety, Starting on Sanjuanita 09/07/21 at 0950, Pre-op (day of surgery) 1011 (Given - Provider: Justine Strickland, DANIELLE) HYDROmorphone (DILAUDID) injection 0.5 mg (CANCELED) 0.5 mg, IntraVENous, EVERY 5 MIN PRN, Pain Severe (7-10), Starting on Sanjuanita 09/07/21 at 1053, For 4 doses, Phase I - Initial therapy for severe pain. Restricted to a 50 minute time frame starting when the patient can verbally state their pain score., PACU only 1522 (Given - Provider: Kimmy Quigley, DANIELLE) morphine sulfate (PF) injection 2 mg 2 mg, IntraVENous, EVERY 3 HOURS PRN, Pain Severe (7-10), IV breakthrough, Starting on Sanjuanita 09/07/21 at 1629, If oral and IV narcotics ordered, use oral first and only use IV if oral is ineffective or cannot take oral. Do Not give oral and IV within 1 hour of each other unless specifically ordered. ondansetron (ZOFRAN) injection 4 mg 4 mg, IntraVENous, EVERY 6 HOURS PRN, Nausea, Vomiting, Starting on Sanjuanita 09/07/21 at 1629 oxyCODONE (ROXICODONE) immediate release tablet 10 mg(Linked Group 1) 10 mg, Oral, EVERY 4 HOURS PRN, Pain Severe (7-10), Starting on Sanjuanita 09/07/21 at 1629 0249 (See Alternativ e - Provider: Alexander Pardo RN)0912 (See Alternative - Provider: Janett Dexter RN) oxyCODONE (ROXICODONE) immediate release tablet 5 mg(Linked Group 1) 5 mg, Oral, EVERY 4 HOURS PRN, Pain Moderate (4-6), Starting on Sanjuanita 09/07/21 at 1629 0249 (Given - Provid er: Alexander Pardo RN)0912 (Given - Provider: Janett Dexter RN) sodium chloride flush 0.9 % injection 10 mL 10 mL, IntraVENous, PRN, Line Care, After every IV line use, Starting on Sanjuanita 09/07/21 at 1629 Linked Groups Order Group 1: oxyCODONE (ROXICODONE) immediate release tablet 5 mgJump to med 5 mg, Oral, EVERY 4 HOURS PRN, Pain Moderate (4-6), Starting on Sanjuanita 09/07/21 at 1629 Or oxyCODONE (ROXICODONE) immediate release tablet 10 mgJump to med 10 mg, Oral, EVERY 4 HOURS PRN, Pain Severe (7-10), Starting on Sanjuanita 09/07/21 at 1629 FOR RECORDS PERTAINING TO PATIENTS WHO ARE OR HAVE BEEN ENROLLED IN A CHEMICAL DEPENDENCY/SUBSTANCEABUSE PROGRAM, SOME INFORMATION MAY BE OMITTED. This clinical summary was aggregated from multiple sources. Caution should be exercised in using it in the provision of clinical care. This summary normalizes information from multiple sources, and as a consequence, information in this document may materially change the coding, format and clinical context of patient data. In addition, data may be omitted in some cases. CLINICAL DECISIONS SHOULD BE BASED ON THE PRIMARY CLINICAL RECORDS. [employer] provides no warranty or guarantee of the accuracy or completeness of information in this document.
== END | disposition home or self-care (01) ==
LOC: MTRAD 15:25
PROVIDERS: PCP Family Medicine; Referring Provider Family Medicine; Visit Provider Family Medicine
DX: M79.644 Pain in right finger(s) (principal)
CPT/HCPCS: 73140